=== PATIENT | male | born 1955 | race Caucasian/White ===

== ENCOUNTER 2017-03-18 14:10 | Emergency (ER) | payer OTHER ==
[~2017-03-18] VITALS: Ht 172.7 cm; Wt 72.6 kg
[~2017-03-18 14:10] MED LIST: ALBIPROI INH; ALBU8HFA2 INH; ALBU90OI6 INH; AZIT250 PO; CODGUAEL PO; DOXY100 PO; FLUSAL2505 IH; HYDACE5 PO; PRED10 PO; PRED20 PO; SULTRIDS PO; TIOT18 IH
[2017-03-18] MEDS ORDERED: HORIZANT300 MG PO (14:15)
[2017-03-18] MEDS ORDERED: FLUT1DIS5 INH (14:50)
[2017-03-18] MEDS ORDERED: CITA20 PO (14:50)
[2017-03-18] MEDS ORDERED: TRAZ100 PO (14:51)
[2017-03-18] MEDS ORDERED: MONT10T PO (14:51)
[2017-03-18] MEDS ORDERED: ALBU90OI INH (14:52)
[2018-01-12] MEDS ORDERED: DULERA 100 MCG/13 GM INH (09:42)
[2018-01-12] MEDS ORDERED: DULO30 PO (09:42)
[2018-01-12] MEDS ORDERED: ASPI325 PO (09:44)
[2018-01-12] MEDS ORDERED: IBUP400 PO (12:25)
== END 2017-03-18 15:10 | disposition home or self-care (01) ==
LOC: ER 14:10
DX: F10.129 Alcohol abuse with intoxication, unspecified (principal); F17.200 Nicotine dependence, unspecified, uncomplicated; J44.9 Chronic obstructive pulmonary disease, unspecified
CPT/HCPCS: 36415; 93005; 93010; 99283

== ENCOUNTER → 2017-09-23 | Outpatient (CLI) | payer OTHER ==
[~2017-09-23] MED LIST changes: +ALBU90OI INH; +CITA20 PO; +FLUT1DIS5 INH; +HORIZANT300 MG PO; +MONT10T PO; +TRAZ100 PO
== END ==
LOC: LAB SHORT 13:10 → LAB 13:10
DX: J44.1 Chronic obstructive pulmonary disease with (acute) exacerbation (principal)
CPT/HCPCS: 87070; 87205

== ENCOUNTER 2018-03-07 07:52 | Day surgery (SDC) | payer OTHER ==
[~2018-03-07] VITALS: Ht 170.2 cm; Wt 64.5 kg
[~2018-03-07 07:52] MED LIST changes: +ASPI325 PO; +DULERA 100 MCG/13 GM INH; +DULO30 PO; +IBUP400 PO
[2018-03-07 08:42] LABS: BASOPHILS ABSOLUTE AUTO 0.03 K/mm3 (0.00-0.23); BASOPHILS PERCENT AUTO 0 % (0-2); EOSINOPHILS PERCENT AUTO 3 % (0-6); Hemoglobin 16.5 g/dL (13.5-17.5); IMMATURE GRAN ABSOLUTE AUTO 0.02 K/mm3 (0.00-0.10); IMMATURE GRAN PERCENT AUTO 0 % (0-1); LYMPHOCYTES ABSOLUTE AUTO 1.15 K/mm3 (0.84-5.20); LYMPHOCYTES PERCENT AUTO 17 % (21-46); MONOCYTES ABSOLUTE AUTO 0.86 K/mm3 (0.16-1.47); MONOCYTES PERCENT AUTO 13 % (4-13); Mean Corpuscular HGB 27.7 pg (26.0-34.0); Mean Corpuscular Volume 84 fL (80-100); Mean Platelet Volume 9.2 fL (9.1-12.4); NEUTROPHILS ABSOLUTE AUTO 4.48 K/mm3 (1.96-9.15); NEUTROPHILS PERCENT AUTO 66 % (41-73); Platelet Count 290 K/mm3 (150-400); RDW Coefficient Variation 16.8 % (11.7-14.2); Red Blood Cell Count 5.96 M/mm3 (4.30-5.90); White Blood Cell Count 6.74 K/mm3 (4.00-11.30)
[2018-03-07 08:44] LABS: International Normalized Ratio 0.93; Prothrombin Time Results 9.9 Sec (9.7-11.5)
[2018-03-07 08:51] LABS: Anion Gap 6 mmol/L (6-16); Blood Urea Nitrogen 16 mg/dL (8-24); Bun/Creatinine Ratio 15.2 (12.0-20.0); CO2, Blood 31 mmol/L (21-32); Calcium, Blood 9.6 mg/dL (8.5-10.1); Chloride, Blood 95 mmol/L (98-108); Creatinine, Blood 1.05 mg/dL (0.60-1.20); Glomerular Filtration Rate >60 (60-); Glucose, Blood 88 mg/dL (70-99); Potassium, Blood 4.8 mmol/L (3.5-5.5); Sodium, Blood 132 mmol/L (136-145)
--- NOTE | 2018-03-07 11:50 | NUR ---
ANESTHESIOLOGIST AWAKENS PT WITH LIGHT PHYSICAL STIMULATION. PT REMAINS AWAKE. APPEARS ALERT WITH APPROPRIATE CONVERSATION AND QUESTIONS. IV DC'D WITH CANNULA TIP INTACT. FOLDED 2X2 GAUZE APPLIED WITH COBAN WRAP TO SITE. PT DRESSES SELF WITHOUT ASSISTANCE. AMBULATES TO THE BATHROOM WITHOUT BALANCE OR GAIT DEFECTS. DC'D TO WAITING FRIEND.
== END 2018-03-07 22:46 | disposition home or self-care (01) ==
LOC: MHTC 07:52
PROVIDERS: Internal Medicine Cardiovascular Disease
DX: I63.9 Cerebral infarction, unspecified (principal); R93.1 Abnormal findings on diagnostic imaging of heart and coronary circulation
CPT/HCPCS: 36415; 80048; 85025; 85610; 93312; 93325; J2250; J7040

== ENCOUNTER 2018-06-21 15:55 | Inpatient (IN) | payer OTHER ==
[~2018-06-21] VITALS: Ht 172.7 cm; Wt 67.0 kg
[2018-06-21 16:46] LABS: BASOPHILS ABSOLUTE AUTO 0.03 K/mm3 (0.00-0.23); BASOPHILS PERCENT AUTO 0 % (0-2); EOSINOPHILS ABSOLUTE AUTO 0.01 K/mm3 (0.00-0.68); EOSINOPHILS PERCENT AUTO 0 % (0-6); Hematocrit 42.4 % (37.0-53.0); IMMATURE GRAN ABSOLUTE AUTO 0.25 K/mm3 (0.00-0.10); IMMATURE GRAN PERCENT AUTO 2 % (0-1); LYMPHOCYTES ABSOLUTE AUTO 1.25 K/mm3 (0.84-5.20); LYMPHOCYTES PERCENT AUTO 8 % (21-46); MONOCYTES ABSOLUTE AUTO 1.62 K/mm3 (0.16-1.47); MONOCYTES PERCENT AUTO 10 % (4-13); Mean Corpuscular HGB 27.7 pg (26.0-34.0); Mean Corpuscular Volume 84 fL (80-100); NEUTROPHILS ABSOLUTE AUTO 12.78 K/mm3 (1.96-9.15); NEUTROPHILS PERCENT AUTO 80 % (41-73); Platelet Count 246 K/mm3 (150-400); RDW Coefficient Variation 14.8 % (11.7-14.2); RDW Standard Deviation 44.5 fL (35.1-46.3); Red Blood Cell Count 5.05 M/mm3 (4.30-5.90); White Blood Cell Count 15.94 K/mm3 (4.00-11.30)
[2018-06-21 16:57] LABS: Alanine Aminotransfer (ALT/SGP 90 U/L (12-78); Albumin/Globulin Ratio 0.5 (0.8-1.8); Alk Phos 117 U/L (50-136); Anion Gap 9 mmol/L (6-16); Aspartate Aminotrans (AST/SGOT 79 U/L (12-37); Bilirubin, Total 1.2 mg/dL (0.1-1.0); Blood Urea Nitrogen 21 mg/dL (8-24); Bun/Creatinine Ratio 19.6 (12.0-20.0); CO2, Blood 30 mmol/L (21-32); Calcium, Blood 9.4 mg/dL (8.5-10.1); Chloride, Blood 85 mmol/L (98-108); Creatinine, Blood 1.07 mg/dL (0.60-1.20); Globulin, Blood 5.6 g/dL (2.2-4.0); Glomerular Filtration Rate >60 (60-); Glucose, Blood 106 mg/dL (70-99); Potassium, Blood 5.5 mmol/L (3.5-5.5); Sodium, Blood 124 mmol/L (136-145); Total Protein, Blood 8.6 g/dL (6.4-8.2)
[2018-06-21] MEDS ORDERED: GABA300 PO (17:24)
[2018-06-21] MEDS ORDERED: PANT40 PO (17:25)
[2018-06-21] MEDS ORDERED: ATOR40TA PO (17:26)
[2018-06-21 18:30] LABS: Ethanol (Alcohol), Blood, Med <3 mg/dL; Magnesium, Blood 2.1 mg/dL (1.6-2.4)
--- NOTE | 2018-06-21 20:50 | NUR ---
2049 AMDIT: PT ARRIVES TO [facility] VIA GOURNEY FROM ER AND TRANSFERS SELF TO BED; APPEARS STEADY ON FEET AND SITS ON SIDE OF BED FOR ASSESMENT. IV ROCEPHIN INFUSING. PT ORIENTED TO ROOM, BED, FALL PRECAUTIONS AND CALL SYSTEM; VERBALIZES UNDERSTANDING. CALL LIGHT PLACED IN REACH.
[2018-06-21 22:22] LABS: Anion Gap 10 mmol/L (6-16); Blood Urea Nitrogen 17 mg/dL (8-24); Bun/Creatinine Ratio 18.7 (12.0-20.0); CO2, Blood 29 mmol/L (21-32); Calcium, Blood 8.9 mg/dL (8.5-10.1); Chloride, Blood 91 mmol/L (98-108); Creatinine, Blood 0.91 mg/dL (0.60-1.20); Glomerular Filtration Rate >60 (60-); Glucose, Blood 167 mg/dL (70-99); Potassium, Blood 4.1 mmol/L (3.5-5.5); Sodium, Blood 130 mmol/L (136-145)
[2018-06-22 00:54] LABS: U Amphetamine Screen Not Detected; U Barbituate Screen Not Detected; U Benzodiazapine Screen Not Detected; U Buprenorphine Screen Not Detected; U Cannabinoids Screen Not Detected; U Cocaine Screen Not Detected; U Methadone Screen Not Detected; U Methamphetamine Screen Not Detected; U Opiates Screen Not Detected; U Oxycodone Screen Not Detected; U Phencyclidine Screen Not Detected; U Propoxyphene Screen Not Detected
[2018-06-22 04:32] LABS: BASOPHILS ABSOLUTE AUTO 0.01 K/mm3 (0.00-0.23); BASOPHILS PERCENT AUTO 0 % (0-2); EOSINOPHILS PERCENT AUTO 0 % (0-6); Hematocrit 37.6 % (37.0-53.0); Hemoglobin 12.4 g/dL (13.5-17.5); IMMATURE GRAN ABSOLUTE AUTO 0.12 K/mm3 (0.00-0.10); IMMATURE GRAN PERCENT AUTO 1 % (0-1); LYMPHOCYTES ABSOLUTE AUTO 0.77 K/mm3 (0.84-5.20); LYMPHOCYTES PERCENT AUTO 6 % (21-46); MONOCYTES ABSOLUTE AUTO 0.57 K/mm3 (0.16-1.47); MONOCYTES PERCENT AUTO 4 % (4-13); Mean Corpuscular HGB 27.7 pg (26.0-34.0); Mean Corpuscular Volume 84 fL (80-100); Mean Platelet Volume 9.9 fL (9.1-12.4); NEUTROPHILS ABSOLUTE AUTO 11.76 K/mm3 (1.96-9.15); NEUTROPHILS PERCENT AUTO 89 % (41-73); Platelet Count 207 K/mm3 (150-400); RDW Coefficient Variation 14.6 % (11.7-14.2); RDW Standard Deviation 43.9 fL (35.1-46.3); Red Blood Cell Count 4.48 M/mm3 (4.30-5.90); White Blood Cell Count 13.23 K/mm3 (4.00-11.30)
[2018-06-22 04:46] LABS: International Normalized Ratio 1.03; Prothrombin Time Results 10.9 Sec (9.7-11.5)
--- NOTE | 2018-06-22 11:54 | NUR ---
REPORT TO MARIYA ARMAS ON MEDICAL FLOOR.
--- NOTE | 2018-06-22 15:41 | NUR ---
ARRIVED TO RM 303 FROM PCU AFTER LUNCH. ORIENTED TO THE ROOM. I&O DISCUSSED. HE IS A&O. HE IS QUIET. SKIN IS A DEEP SUN BROWN. IVF'S INFUSING. NO COMPLAINTS. NO SIGNS OF WITHDRAWAL.O2 ON 2L. SAT 93%.
--- NOTE | 2018-06-22 18:24 | NUR ---
VSS. CIWA SCORE 6. HAS ORDERED CIWA MEDS IF THEY BECOME NECESSARY LATER. HE IS FINISHING A CAN OF BEER HE RECEIVED ON HIS DINNER TRAY. IT IS THE ONLY CAN HE HAS RECEIVED TODAY. NO FEVER. H/A IS GONE AT THIS TIME.O2 DOWN TO 1L/MIN. CONTINUOUS BIOX IS ON. HE IS 90%. HIS SPUTUM THIS AFTERNOON WAS GREEN. HE EXPECTORATES A MODERATE AMT. IV ANTIBIOTICS GIVEN. NO COMPLAINTS.
--- NOTE | 2018-06-23 04:49 | NUR ---
Shift summary: Pt slept well most of shift. Only evidence of ETOH detoxing was some tremors in his hands. pt alert, oriented and appropriate. pt recieved a banana bag of iv fluids last pm. NO c/o discomfort. VSS.
--- NOTE | 2018-06-23 10:41 | NUR ---
CIWA NEGATIVE. HE IS PLEASANT AND COOPERATIVE. HE SAYS HE DOESN'T FEEL VERY GOOD THOUGH TODAY AND HOPES HE DOES NOT GET DISCHARGED. IVF'S CONTINUE. TELE NSR. HE HAS SHOWERED AND EATS WELL. HE DRANK HIS CAN OF BEER ON HIS BREAKFAST TRAY. LOTS OF SPUTUM PRODUCTION, SOMETIMES GREEN, SOMETIMES BROWN OR YELLOW. O2 1L. SATS 90-91%. ROUNDED. NO ORDERS YET.
--- NOTE | 2018-06-23 10:51 | NUR ---
NORMAS PUT ON BOTH LEGS AFTER SHOWER EARLIER THIS AM.
[2018-06-23] MEDS ORDERED: TRAZ50 PO (12:38)
[2018-06-23] MEDS ORDERED: ACET325 PO (12:40)
[2018-06-23] MEDS ORDERED: BENZ100A PO (12:44)
[2018-06-23] MEDS ORDERED: GUAIFENESIN1200 MG PO (12:45)
[2018-06-23] MEDS ORDERED: ALBU3IS INH (12:47)
[2018-06-23] MEDS ORDERED: NICO21TP TOP (12:48)
[2018-06-23] MEDS ORDERED: PRED10 PO (12:50)
[2018-06-23] MEDS ORDERED: Florastor250 MG PO (12:50)
[2018-06-23] MEDS ORDERED: ASPI81CH PO (12:51)
[2018-06-23] MEDS ORDERED: LEVO750 PO (12:52)
[2018-06-23] MEDS ORDERED: DULERA 200 MCG/13 GM INH (12:53)
--- NOTE | 2018-06-23 14:30 | NUR ---
DISCHARGED TO HOME AT 1425 WITH HIS BELONGINGS AND AN RX FOR A NEB MACHINE. F/U APPT. WAS SET UP BY THE [facility] FOR THE . [facility] WILL DELIVER HIS MEDS TO HIM AT THE [facility]. HE WILL GET THE RX FILLED AT [facility]. HE HAD SOME SWEATS AND TREMORS. LIBRIUM GIVEN X1. RA SATS 91 AND 92% BEFORE HE LEFT.
== END 2018-06-23 14:34 | disposition home or self-care (01) | DRG 871 ==
LOC: ER 15:55 → ERHOLD 18:13 → PCU 20:37 → MEDS 20:43 → ENPENDDIS 06-23 11:55 → MEDS 06-23 14:34
PROVIDERS: Emergency Medicine; Nurse Practitioner Acute Care; ADMIT Internal Medicine
DX: A41.9 Sepsis, unspecified organism (principal); J96.01 Acute respiratory failure with hypoxia; J18.9 Pneumonia, unspecified organism; J44.1 Chronic obstructive pulmonary disease with (acute) exacerbation; J44.0 Chronic obstructive pulmonary disease with (acute) lower respiratory infection; E87.1 Hypo-osmolality and hyponatremia; F32.9 Major depressive disorder, single episode, unspecified; F17.210 Nicotine dependence, cigarettes, uncomplicated; F10.20 Alcohol dependence, uncomplicated; K21.9 Gastro-esophageal reflux disease without esophagitis; F41.9 Anxiety disorder, unspecified; Z59.0 Homelessness
CPT/HCPCS: 36415; 71046; 80048; 80053; 83605; 83735; 84145; 85025; 85610; 87070; 87077; 87185; 87205; 93005; 93010; 94640; 94760; 94762; 96365; 96367; 96375; 99285-25; G0480; J0456; J0696; J1650; J2060; J2930; J3411; J3475; J7030; J7042; J7050; J7512

== ENCOUNTER 2018-08-19 21:25 | Emergency (ER) | payer OTHER ==
[~2018-08-19] VITALS: Ht 170.2 cm; Wt 68.0 kg
[~2018-08-19 21:25] MED LIST changes: +ACET325 PO; +ALBU3IS INH; +ASPI81CH PO; +ATOR40TA PO; +BENZ100A PO; +DULERA 200 MCG/13 GM INH; +Florastor250 MG PO; +GABA300 PO; +GUAIFENESIN1200 MG PO; +LEVO750 PO; +NICO21TP TOP; +PANT40 PO; +TRAZ50 PO
[2018-08-19 21:56] LABS: BASOPHILS ABSOLUTE AUTO 0.02 K/mm3 (0.00-0.23); BASOPHILS PERCENT AUTO 0 % (0-2); EOSINOPHILS PERCENT AUTO 3 % (0-6); Hematocrit 41.4 % (37.0-53.0); Hemoglobin 13.4 g/dL (13.5-17.5); IMMATURE GRAN ABSOLUTE AUTO 0.05 K/mm3 (0.00-0.10); IMMATURE GRAN PERCENT AUTO 0 % (0-1); LYMPHOCYTES PERCENT AUTO 25 % (21-46); MONOCYTES ABSOLUTE AUTO 0.92 K/mm3 (0.16-1.47); MONOCYTES PERCENT AUTO 8 % (4-13); Mean Corpuscular HGB Conc 32.4 g/dL (31.5-36.5); Mean Corpuscular Volume 87 fL (80-100); Mean Platelet Volume 9.3 fL (9.1-12.4); NEUTROPHILS ABSOLUTE AUTO 7.09 K/mm3 (1.96-9.15); NEUTROPHILS PERCENT AUTO 64 % (41-73); Platelet Count 160 K/mm3 (150-400); RDW Coefficient Variation 15.6 % (11.7-14.2); RDW Standard Deviation 47.7 fL (35.1-46.3); Red Blood Cell Count 4.78 M/mm3 (4.30-5.90); White Blood Cell Count 11.18 K/mm3 (4.00-11.30)
[2018-08-19 22:14] LABS: Alanine Aminotransfer (ALT/SGP 57 U/L (12-78); Albumin, Blood 3.5 g/dL (3.4-5.0); Albumin/Globulin Ratio 0.9 (0.8-1.8); Alk Phos 114 U/L (50-136); Anion Gap 8 mmol/L (6-16); Aspartate Aminotrans (AST/SGOT 39 U/L (12-37); Bilirubin, Total 0.5 mg/dL (0.1-1.0); Blood Urea Nitrogen 12 mg/dL (8-24); Bun/Creatinine Ratio 13.8 (12.0-20.0); CO2, Blood 31 mmol/L (21-32); Calcium, Blood 9.3 mg/dL (8.5-10.1); Chloride, Blood 97 mmol/L (98-108); Creatinine, Blood 0.87 mg/dL (0.60-1.20); Globulin, Blood 4.1 g/dL (2.2-4.0); Glomerular Filtration Rate >60 (60-); Glucose, Blood 96 mg/dL (70-99); Potassium, Blood 4.1 mmol/L (3.5-5.5); Sodium, Blood 136 mmol/L (136-145); Total Protein, Blood 7.6 g/dL (6.4-8.2)
[2018-08-20] MEDS ORDERED: Zithromax250 MG PO (00:22)
[2018-08-20] MEDS ORDERED: Ventolin/Prove6.7 GM INH (00:22)
[2018-08-20] MEDS ORDERED: Prednisone20 MG PO (00:22)
== END 2018-08-20 02:20 | disposition home or self-care (01) ==
LOC: ER 21:25
PROVIDERS: Physician Assistant
DX: J44.1 Chronic obstructive pulmonary disease with (acute) exacerbation (principal); F17.210 Nicotine dependence, cigarettes, uncomplicated; Z79.82 Long term (current) use of aspirin; Z79.899 Other long term (current) drug therapy; Z87.01 Personal history of pneumonia (recurrent)
CPT/HCPCS: 71046; 80053; 85025; 93005; 93010; 94644; 99285-25; J7512

== ENCOUNTER 2019-02-04 22:53 | Inpatient (IN) | payer OTHER ==
[~2019-02-04] VITALS: Ht 170.2 cm; Wt 67.5 kg
[~2019-02-04 22:53] MED LIST changes: +Prednisone20 MG PO; +Ventolin/Prove6.7 GM INH; +Zithromax250 MG PO
[2019-02-04 23:37] LABS: BASOPHILS ABSOLUTE AUTO 0.02 K/mm3 (0.00-0.23); BASOPHILS PERCENT AUTO 0 % (0-2); EOSINOPHILS ABSOLUTE AUTO 0.28 K/mm3 (0.00-0.68); EOSINOPHILS PERCENT AUTO 2 % (0-6); Hemoglobin 9.3 g/dL (13.5-17.5); IMMATURE GRAN PERCENT AUTO 2 % (0-1); LYMPHOCYTES ABSOLUTE AUTO 1.98 K/mm3 (0.84-5.20); LYMPHOCYTES PERCENT AUTO 16 % (21-46); MONOCYTES ABSOLUTE AUTO 1.17 K/mm3 (0.16-1.47); MONOCYTES PERCENT AUTO 9 % (4-13); Mean Corpuscular HGB 26.9 pg (26.0-34.0); Mean Corpuscular HGB Conc 32.1 g/dL (31.5-36.5); Mean Corpuscular Volume 84 fL (80-100); NEUTROPHILS ABSOLUTE AUTO 8.72 K/mm3 (1.96-9.15); NEUTROPHILS PERCENT AUTO 70 % (41-73); Platelet Count 252 K/mm3 (150-400); RDW Coefficient Variation 15.9 % (11.7-14.2); Red Blood Cell Count 3.46 M/mm3 (4.30-5.90); White Blood Cell Count 12.47 K/mm3 (4.00-11.30)
[2019-02-04 23:50] LABS: Alanine Aminotransfer (ALT/SGP 59 U/L (12-78); Albumin, Blood 2.5 g/dL (3.4-5.0); Albumin/Globulin Ratio 0.6 (0.8-1.8); Alk Phos 99 U/L (50-136); Anion Gap 5 mmol/L (6-16); Aspartate Aminotrans (AST/SGOT 35 U/L (12-37); Bilirubin, Total 0.4 mg/dL (0.1-1.0); Blood Urea Nitrogen 32 mg/dL (8-24); Bun/Creatinine Ratio 31.7 (12.0-20.0); CO2, Blood 31 mmol/L (21-32); Calcium, Blood 8.7 mg/dL (8.5-10.1); Chloride, Blood 98 mmol/L (98-108); Creatinine, Blood 1.01 mg/dL (0.60-1.20); Globulin, Blood 4.2 g/dL (2.2-4.0); Glomerular Filtration Rate >60 (60-); Glucose, Blood 101 mg/dL (70-99); Potassium, Blood 4.2 mmol/L (3.5-5.5); Sodium, Blood 134 mmol/L (136-145); Total Protein, Blood 6.7 g/dL (6.4-8.2); Troponin I 0.021 ng/mL (0.000-0.040)
[2019-02-05 04:08] LABS: BASOPHILS ABSOLUTE AUTO 0.02 K/mm3 (0.00-0.23); BASOPHILS PERCENT AUTO 0 % (0-2); EOSINOPHILS ABSOLUTE AUTO 0.08 K/mm3 (0.00-0.68); EOSINOPHILS PERCENT AUTO 1 % (0-6); Hematocrit 26.1 % (37.0-53.0); Hemoglobin 8.3 g/dL (13.5-17.5); IMMATURE GRAN ABSOLUTE AUTO 0.32 K/mm3 (0.00-0.10); IMMATURE GRAN PERCENT AUTO 3 % (0-1); LYMPHOCYTES ABSOLUTE AUTO 0.86 K/mm3 (0.84-5.20); LYMPHOCYTES PERCENT AUTO 8 % (21-46); MONOCYTES ABSOLUTE AUTO 0.58 K/mm3 (0.16-1.47); MONOCYTES PERCENT AUTO 6 % (4-13); Mean Corpuscular HGB 26.5 pg (26.0-34.0); Mean Corpuscular HGB Conc 31.8 g/dL (31.5-36.5); Mean Corpuscular Volume 83 fL (80-100); Mean Platelet Volume 10.1 fL (9.1-12.4); NEUTROPHILS ABSOLUTE AUTO 8.72 K/mm3 (1.96-9.15); NEUTROPHILS PERCENT AUTO 82 % (41-73); Platelet Count 234 K/mm3 (150-400); RDW Coefficient Variation 15.7 % (11.7-14.2); RDW Standard Deviation 46.5 fL (35.1-46.3); Red Blood Cell Count 3.13 M/mm3 (4.30-5.90); White Blood Cell Count 10.58 K/mm3 (4.00-11.30)
[2019-02-05 04:26] LABS: Albumin, Blood 2.1 g/dL (3.4-5.0); Anion Gap 7 mmol/L (6-16); Blood Urea Nitrogen 25 mg/dL (8-24); Bun/Creatinine Ratio 27.1 (12.0-20.0); CO2, Blood 26 mmol/L (21-32); Calcium, Blood 7.8 mg/dL (8.5-10.1); Chloride, Blood 104 mmol/L (98-108); Creatinine, Blood 0.92 mg/dL (0.60-1.20); Glomerular Filtration Rate >60 (60-); Glucose, Blood 122 mg/dL (70-99); Potassium, Blood 3.7 mmol/L (3.5-5.5); Sodium, Blood 137 mmol/L (136-145)
--- NOTE | 2019-02-05 05:41 | NUR ---
SHIFT SUMMARY PT SLEEPING IN ROOM COMFORTABLY AT THIS TIME. NO ACUTE CHANGES IN STATUS SINCE ARRIVAL TO UNIT FROM ED. PT REPROTS SOME DYSPNEA W/ EXERTION, REPORTS NO SOB AT REST, UNTIL COUGHING EPISDOE OCCURS. RESP EVEN UNLABORED AT REST ON 2L NC W/ SATS >92%. PT DENIES ANY CP. REPORTS SOME MILD ABD CRAMPING AND BLACK FORMED STOOL X3 DAYS AGO, AND ANOTHER BLACK STOOL IN ED BEFORE ARRIVAL. GI CONSULT IS CALLED IN FOR AM. PT CURRENTLY INFUSING PROTONIX IN PIV, AND LR AT 100ML/HR. PT IS HYPOTENSIVE WITH FLUIDS INFUSING. DENIES OTHER NEEDS. CALL LIGHT IN REACH.
[2019-02-05 09:52] LABS: Adenovirus Not Detected (NOT DETECT); Bordetella pertussis Not Detected (NOT DETECT); Chlamydophila pneumoniae Not Detected (NOT DETECT); Coronavirus 229E Not Detected (NOT DETECT); Coronavirus HKU1 Not Detected (NOT DETECT); Coronavirus NL63 Not Detected (NOT DETECT); Coronavirus OC43 Not Detected (NOT DETECT); Human Metapneumovirus Not Detected (NOT DETECT); Human Rhinovirus/Enterovirus Not Detected (NOT DETECT); Influenza A Not Detected (NOT DETECT); Influenza A/2009-H1 Not Detected (NOT DETECT); Influenza A/H1 Not Detected (NOT DETECT); Influenza A/H3 Not Detected (NOT DETECT); Influenza B Not Detected (NOT DETECT); Mycoplasma pneumoniae Not Detected (NOT DETECT); Parainfluenza Virus 1 Not Detected (NOT DETECT); Parainfluenza Virus 2 Not Detected (NOT DETECT); Parainfluenza Virus 3 Not Detected (NOT DETECT); Parainfluenza Virus 4 Not Detected (NOT DETECT); Respiratory Syncytial Virus Not Detected (NOT DETECT)
[2019-02-05 10:27] LABS: Hematocrit 26.2 % (37.0-53.0); Hemoglobin 8.3 g/dL (13.5-17.5); Mean Corpuscular HGB 26.4 pg (26.0-34.0); Mean Corpuscular HGB Conc 31.7 g/dL (31.5-36.5); Mean Corpuscular Volume 83 fL (80-100); Platelet Count 240 K/mm3 (150-400); RDW Coefficient Variation 15.6 % (11.7-14.2); RDW Standard Deviation 46.5 fL (35.1-46.3); Red Blood Cell Count 3.14 M/mm3 (4.30-5.90); White Blood Cell Count 10.78 K/mm3 (4.00-11.30)
[2019-02-05 10:51] LABS: BAND PERCENT MAN 10 % (0-8); BASOPHILS PERCENT MAN 0 % (0-2); EOSINOPHILS PERCENT MAN 0 % (0-6); LYMPHOCYTES ABSOLUTE MAN 0.86 K/mm3 (0.84-5.20); LYMPHOCYTES PERCENT MAN 8 % (21-46); MONOCYTES ABSOLUTE MAN 0.43 K/mm3 (0.16-1.47); MONOCYTES PERCENT MAN 4 % (4-13); NEUTROPHILS ABSOLUTE MAN 9.48 K/mm3 (1.96-9.15); SEG NEUTROPHILS PERCENT MAN 78 % (41-73); TOTAL CELLS COUNTED 100
[2019-02-05 18:25] LABS: Hematocrit 26.4 % (37.0-53.0); Hemoglobin 8.4 g/dL (13.5-17.5)
--- NOTE | 2019-02-05 18:47 | NUR ---
SHIFT SUMMARY PT HAS SHOWN IMPROVEMENT THROUGH OUT THE DAY. BEGAN SHIFT WITH PT ON 2L NC AND WAS ABLE TO WEAN PT TO ROOM AIR. PT HAS STATED MULTIPLE TIMES THAT HE FEELS HIS BREATHING HAS IMPROVED. BP'S HAVE BEEN SOFT IN THE HIGH 90'S. DR MURO AWARE AND WANTS TO CONTINUE TO MONITOR. DR MORATAYA ROUNDED ON PT THIS MORNING AND PLANS ON NO ENDOSCOPY'S WHILE INPATIENT. TELEMETRY HAS SHOWN PT IN A NSR RATES 70-80'S.
[2019-02-06 04:09] LABS: BASOPHILS ABSOLUTE AUTO 0.01 K/mm3 (0.00-0.23); BASOPHILS PERCENT AUTO 0 % (0-2); EOSINOPHILS ABSOLUTE AUTO 0.02 K/mm3 (0.00-0.68); EOSINOPHILS PERCENT AUTO 0 % (0-6); Hematocrit 24.7 % (37.0-53.0); Hemoglobin 7.8 g/dL (13.5-17.5); Mean Corpuscular HGB 26.5 pg (26.0-34.0); Mean Corpuscular HGB Conc 31.6 g/dL (31.5-36.5); Mean Corpuscular Volume 84 fL (80-100); Mean Platelet Volume 10.2 fL (9.1-12.4); Platelet Count 257 K/mm3 (150-400); RDW Coefficient Variation 15.9 % (11.7-14.2); RDW Standard Deviation 47.6 fL (35.1-46.3); Red Blood Cell Count 2.94 M/mm3 (4.30-5.90)
[2019-02-06 04:11] LABS: IMMATURE GRAN ABSOLUTE AUTO 0.25 K/mm3 (0.00-0.10); IMMATURE GRAN PERCENT AUTO 2 % (0-1); LYMPHOCYTES ABSOLUTE AUTO 2.17 K/mm3 (0.84-5.20); LYMPHOCYTES PERCENT AUTO 19 % (21-46); MONOCYTES ABSOLUTE AUTO 1.24 K/mm3 (0.16-1.47); MONOCYTES PERCENT AUTO 11 % (4-13); NEUTROPHILS ABSOLUTE AUTO 7.81 K/mm3 (1.96-9.15); NEUTROPHILS PERCENT AUTO 68 % (41-73)
--- NOTE | 2019-02-06 05:49 | NUR ---
SHIFT SUMMARY PT SITTING UP WATCHING TV IN ROOM. PT SLEPT WELL T/O NIGHT, AND DENIED NEEDS. RESP EVEN UNLABORED ON RA W/ SATS >92%. DENIED CP OR SOB T/O NIGHT. PT CONTINUED TO HAVE HARSH NONPRODUCTIVE COUGH. UNABLE TO OBTAIN SPUTUM SAMPLE. PT USED URINAL AT BEDSIDE T.O NIGHT. IVF INFUSING IN PIV. HGB NOTED THIS AM TO BE 7.9, HOSPITALIST NOTIFED, NO SIGNS OF ACTIVE BLEEDING. GI CONTULS SAW AND SIGHEND OFF ON PT YESTERDAY. ORDERS TO CONTINUE TO MONIOTR PT. DENIED OTHER NEEDS. CALL LIGHT IN REACH.
[2019-02-07 04:11] LABS: BASOPHILS ABSOLUTE AUTO 0.01 K/mm3 (0.00-0.23); BASOPHILS PERCENT AUTO 0 % (0-2); EOSINOPHILS ABSOLUTE AUTO 0.01 K/mm3 (0.00-0.68); EOSINOPHILS PERCENT AUTO 0 % (0-6); Hematocrit 27.7 % (37.0-53.0); Hemoglobin 8.8 g/dL (13.5-17.5); Mean Corpuscular HGB 26.6 pg (26.0-34.0); Mean Corpuscular HGB Conc 31.8 g/dL (31.5-36.5); Mean Corpuscular Volume 84 fL (80-100); Platelet Count 360 K/mm3 (150-400); RDW Coefficient Variation 15.9 % (11.7-14.2); RDW Standard Deviation 47.4 fL (35.1-46.3); Red Blood Cell Count 3.31 M/mm3 (4.30-5.90); White Blood Cell Count 10.39 K/mm3 (4.00-11.30)
[2019-02-07 04:13] LABS: IMMATURE GRAN ABSOLUTE AUTO 0.39 K/mm3 (0.00-0.10); IMMATURE GRAN PERCENT AUTO 4 % (0-1); LYMPHOCYTES ABSOLUTE AUTO 1.78 K/mm3 (0.84-5.20); LYMPHOCYTES PERCENT AUTO 17 % (21-46); MONOCYTES ABSOLUTE AUTO 0.77 K/mm3 (0.16-1.47); MONOCYTES PERCENT AUTO 7 % (4-13); NEUTROPHILS ABSOLUTE AUTO 7.43 K/mm3 (1.96-9.15); NEUTROPHILS PERCENT AUTO 72 % (41-73)
--- NOTE | 2019-02-07 04:29 | NUR ---
SHIFT SUMMARY: 63 Y/O MALE RESTED COMFORTABLY ALL SHIFT, PT HAS OCCASIONAL PRODUCTIVE COUGH BROWN/WHITE SPUTUM (SAMPLE TO LAB); DENIES DYSPNEA, CHEST OR NAUSEA; HAPPY AND COOPERATIVE; VITAL SIGNS STABLE; TELEMETRY REFLECTS SINUS TACHYCARDIA; HG 8.8 THIS AM (02/06 WAS 7.8); VOIDING QS; BED LOW POSITION WITH CALL LIGHT AT SIDE.
[2019-02-07 05:31] LABS: BAND PERCENT MAN 4 % (0-8); BASOPHILS PERCENT MAN 0 % (0-2); EOSINOPHILS PERCENT MAN 1 % (0-6); LYMPHOCYTES ABSOLUTE MAN 1.14 K/mm3 (0.84-5.20); LYMPHOCYTES PERCENT MAN 11 % (21-46); METAMYELOCYTE PERCENT MAN 1 % (0-0); MONOCYTES ABSOLUTE MAN 0.83 K/mm3 (0.16-1.47); MONOCYTES PERCENT MAN 8 % (4-13); MYELOCYTE PERCENT MAN 1 % (0-0); NEUTROPHILS ABSOLUTE MAN 7.79 K/mm3 (1.96-9.15); OTHER CELL PERCENT MAN 3 % (0-0); SEG NEUTROPHILS PERCENT MAN 71 % (41-73); TOTAL CELLS COUNTED 100
[2019-02-07 07:07] LABS: HBSAG SCREEN Negative (Negative); HEP B CORE AB, TOT Negative (Negative); HEP C VIRUS AB <0.1 (0.0-0.9)
[2019-02-07] MEDS ORDERED: AZIT250 PO (09:44)
[2019-02-07] MEDS ORDERED: CEFU500T30 PO (09:46)
[2019-02-07] MEDS ORDERED: PRED20 PO (09:47)
[2019-02-07] MEDS ORDERED: CODEINE-GUAIFE120 ML PO (09:52)
--- NOTE | 2019-02-07 11:36 | NUR ---
DISCHARGE SUMMARY PT A&Ox4. CALM AND COOPERATIVE WITH CARE. PT RESTING IN BED DURING SHIFT. UP ON SIDE OF BED FOR BREAKFAST. PT REPORTS VELA, MEDICATED x1 WITH TYLENOL. PT DENIES SOB, SPO2 >90% ON RA. BREATHING EVEN, UNLABORED. LS DIM T/O. PT DENIES NASUEA. PT RECEIVING IV ANTIBIOTICS, TRANSITIONED TO PO ANTIBIOTICS AT HOME. PT RECEIVING PO STEROIDS. VSS. NO OTHER ACUTE CHANGES NOTED. PT EDUCATED ON DISCHRAGE INSRUCTIONS, FOLLOW UP APPOINTMENTS AND MEDICATIONS. PRESCRIPTIONS FAXED TO [facility] PER PT REQUEST, PHYSICAL PRESCRIPTION GIVEN TO PATIENT. PT LEFT ROOM VIA WHEELCHAIR, TAXI PROVIDED FOR RIDE HOME. PT LEFT ROOM AT 1125. PT STABLE UPON DISCHARGE.
== END 2019-02-07 11:38 | disposition home or self-care (01) | DRG 871 ==
LOC: ER 22:53 → PCU 02-05 03:40
PROVIDERS: Emergency Medicine; Hospitalist; Internal Medicine Gastroenterology; ADMIT Family Medicine
DX: A41.9 Sepsis, unspecified organism (principal); J96.01 Acute respiratory failure with hypoxia; J18.9 Pneumonia, unspecified organism; E87.1 Hypo-osmolality and hyponatremia; J44.0 Chronic obstructive pulmonary disease with (acute) lower respiratory infection; K92.1 Melena; R65.20 Severe sepsis without septic shock; D64.9 Anemia, unspecified; F17.210 Nicotine dependence, cigarettes, uncomplicated; Z59.0 Homelessness; T39.015A Adverse effect of aspirin, initial encounter
CPT/HCPCS: 0099U; 36415; 71046; 80053; 80069; 83605; 83880; 84484; 85014; 85018; 85025; 86317; 86704; 86708; 86803; 87040; 87070; 87205; 87340; 93005; 93010; 94640; 94760; 96361; 96365; 96375; 99285-25; A9270; C9113; J0456; J0696; J2930; J7030; J7050; J7120; J7512

== ENCOUNTER 2019-02-14 16:07 | Observation (INO) | payer OTHER ==
[~2019-02-14] VITALS: Ht 172.7 cm; Wt 67.2 kg
[~2019-02-14 16:07] MED LIST changes: +CEFU500T30 PO; +CODEINE-GUAIFE120 ML PO
[2019-02-14 16:41] LABS: BASOPHILS ABSOLUTE AUTO 0.02 K/mm3 (0.00-0.23); BASOPHILS PERCENT AUTO 0 % (0-2); EOSINOPHILS ABSOLUTE AUTO 0.06 K/mm3 (0.00-0.68); EOSINOPHILS PERCENT AUTO 1 % (0-6); Hematocrit 31.9 % (37.0-53.0); Hemoglobin 9.9 g/dL (13.5-17.5); IMMATURE GRAN ABSOLUTE AUTO 0.06 K/mm3 (0.00-0.10); IMMATURE GRAN PERCENT AUTO 1 % (0-1); LYMPHOCYTES ABSOLUTE AUTO 0.43 K/mm3 (0.84-5.20); LYMPHOCYTES PERCENT AUTO 3 % (21-46); MONOCYTES ABSOLUTE AUTO 0.36 K/mm3 (0.16-1.47); MONOCYTES PERCENT AUTO 3 % (4-13); Mean Corpuscular HGB 25.8 pg (26.0-34.0); Mean Corpuscular Volume 83 fL (80-100); Mean Platelet Volume 8.6 fL (9.1-12.4); NEUTROPHILS ABSOLUTE AUTO 12.13 K/mm3 (1.96-9.15); NEUTROPHILS PERCENT AUTO 93 % (41-73); Platelet Count 667 K/mm3 (150-400); RDW Coefficient Variation 16.2 % (11.7-14.2); RDW Standard Deviation 48.1 fL (35.1-46.3); Red Blood Cell Count 3.83 M/mm3 (4.30-5.90); White Blood Cell Count 13.06 K/mm3 (4.00-11.30)
[2019-02-14 17:07] LABS: Alanine Aminotransfer (ALT/SGP 21 U/L (12-78); Albumin, Blood 2.8 g/dL (3.4-5.0); Albumin/Globulin Ratio 0.8 (0.8-1.8); Alk Phos 66 U/L (50-136); Anion Gap 7 mmol/L (6-16); Aspartate Aminotrans (AST/SGOT 12 U/L (12-37); Bilirubin, Total 0.5 mg/dL (0.1-1.0); Blood Urea Nitrogen 30 mg/dL (8-24); Bun/Creatinine Ratio 32.2 (12.0-20.0); CO2, Blood 28 mmol/L (21-32); Calcium, Blood 8.3 mg/dL (8.5-10.1); Chloride, Blood 99 mmol/L (98-108); Creatinine, Blood 0.93 mg/dL (0.60-1.20); Globulin, Blood 3.6 g/dL (2.2-4.0); Glomerular Filtration Rate >60 (60-); Glucose, Blood 93 mg/dL (70-99); Sodium, Blood 134 mmol/L (136-145); Total Protein, Blood 6.4 g/dL (6.4-8.2)
[2019-02-14 17:17] LABS: BASOPHILS ABSOLUTE MAN 13.06 K/mm3 (0.00-0.23); BASOPHILS PERCENT MAN 100 % (0-2); EOSINOPHILS PERCENT MAN 0 % (0-6); MONOCYTES PERCENT MAN 0 % (4-13); TOTAL CELLS COUNTED 1
[2019-02-14 19:01] LABS: Appearance, Urine Clear (Clear); Bilirubin, Urine Neg (Neg); Blood, Urine Neg (Neg); Color, Urine Yellow (P-Yellow); Glucose Qualitative, Urine Neg (Neg); Ketones, Urine Neg (Neg); Leukocyte Esterase, Urine Neg (Neg); Nitrite, Urine Neg (Neg); Protein, Urine Neg (Neg); Specific Gravity, Urine 1.015 (1.003-1.022); Urobilinogen, Urine NORM (Normal)
[2019-02-14] MEDS ORDERED: ATOR40TA PO (21:19)
[2019-02-14] MEDS ORDERED: TRAZ100 PO (21:19)
[2019-02-14] MEDS ORDERED: NEURONTIN300 MG PO (21:20)
[2019-02-14] MEDS ORDERED: COMBIVENT RESPIM4 GM INH (21:21)
[2019-02-14] MEDS ORDERED: BUDE6HFA INH (21:21)
[2019-02-14] MEDS ORDERED: MONT10T PO (21:21)
[2019-02-14] MEDS ORDERED: ALBU2.5V5 INH (21:22)
[2019-02-14 23:09] LABS: Influenza A Negative (NEGATIVE); Influenza B Negative (NEGATIVE)
--- NOTE | 2019-02-15 02:36 | NUR ---
PT ARRIVED FROM ER APPROXIMATELY 2200; PT A&O; TRANSFER SELF TO BED; O2 SATS >93 ON RA; LUNG SOUNDS CLEAR; HACKING NON-PRODUCTIVE COUGH NOTED; PT DENIES CHEST PAIN; REQUESTS FOOD; SANDWICH, PUDDING AND YOGURT PROVIDED; PT STATES NEW TENDERNESS/PAIN IN R FOOT; CALL LIGHT IN REACH; BED IN LOWEST POSITION APPROXIMATELY 0130 PROVIDER NOTIFIED OF TEMP OF 100.1 AND BP; NEW ORDER TYLENOL FOR FEVER GIVEN
[2019-02-15 03:48] LABS: BASOPHILS ABSOLUTE AUTO 0.02 K/mm3 (0.00-0.23); BASOPHILS PERCENT AUTO 0 % (0-2); EOSINOPHILS ABSOLUTE AUTO 0.04 K/mm3 (0.00-0.68); EOSINOPHILS PERCENT AUTO 1 % (0-6); Hematocrit 28.6 % (37.0-53.0); Hemoglobin 9.1 g/dL (13.5-17.5); IMMATURE GRAN ABSOLUTE AUTO 0.04 K/mm3 (0.00-0.10); IMMATURE GRAN PERCENT AUTO 1 % (0-1); LYMPHOCYTES ABSOLUTE AUTO 0.95 K/mm3 (0.84-5.20); LYMPHOCYTES PERCENT AUTO 12 % (21-46); MONOCYTES ABSOLUTE AUTO 0.36 K/mm3 (0.16-1.47); MONOCYTES PERCENT AUTO 4 % (4-13); Mean Corpuscular HGB 26.2 pg (26.0-34.0); Mean Corpuscular HGB Conc 31.8 g/dL (31.5-36.5); Mean Corpuscular Volume 82 fL (80-100); Mean Platelet Volume 8.7 fL (9.1-12.4); NEUTROPHILS PERCENT AUTO 83 % (41-73); Platelet Count 537 K/mm3 (150-400); RDW Coefficient Variation 16.1 % (11.7-14.2); RDW Standard Deviation 47.6 fL (35.1-46.3); Red Blood Cell Count 3.47 M/mm3 (4.30-5.90); White Blood Cell Count 8.11 K/mm3 (4.00-11.30)
--- NOTE | 2019-02-15 05:17 | NUR ---
SHIFT SUMMARY PT A&O; DENIES CHEST PAIN; TEMP OF 99.8; PT USES URINAL AT BEDSIDE INDEPENDENT; CALLS APPROPRIATELY; 18 G L AC IV FLUSHES APPROPRIATELY; O2 SATS >93 ON RA; HARSH NON- PRODUCTIVE COUGH NOTED; LUNG SOUNDS CLEAR T/O; SCD'S IN PLACE; NSR W/ HR 90 PER MOBILE HOMES REPAIRER; DENIES NEEDS AT THIS TIME; CALL LIGHT IN REACH; BED IN LOWEST POSITION; WILL CONTINUE TO MONITOR CLOSELY UNTIL HAND OFF TO DAY SHIFT RN.
[2019-02-15] MEDS ORDERED: AMOCLA875 PO (09:03)
[2019-02-15] MEDS ORDERED: Vsl#3 Capsule1 EACH PO (09:04)
[2019-02-15] MEDS ORDERED: GUAI600T33 PO (09:04)
[2019-02-15] MEDS ORDERED: Prednisone10 MG PO (09:08)
--- NOTE | 2019-02-15 10:20 | NUR ---
PT DC WITH ALL BELONGINGS, PT PRIOVIDED WITH TAXI BACK TO [facility]. PT EXPRESSED UNDERSTANDING OF DC TEACHING, DENIES FURTHER NEEDS OR QUESTIONS.
== END 2019-02-15 10:10 | disposition home or self-care (01) ==
LOC: ER 16:07 → PCU 16:08
PROVIDERS: Emergency Medicine; ADMIT Hospitalist
DX: R50.9 Fever, unspecified (principal); J44.0 Chronic obstructive pulmonary disease with (acute) lower respiratory infection; J18.9 Pneumonia, unspecified organism; J44.1 Chronic obstructive pulmonary disease with (acute) exacerbation; M79.671 Pain in right foot; F17.210 Nicotine dependence, cigarettes, uncomplicated; K92.1 Melena; F32.9 Major depressive disorder, single episode, unspecified; K21.9 Gastro-esophageal reflux disease without esophagitis; G89.29 Other chronic pain; M54.9 Dorsalgia, unspecified; F10.10 Alcohol abuse, uncomplicated; Z79.51 Long term (current) use of inhaled steroids; Z79.1 Long term (current) use of non-steroidal anti-inflammatories (NSAID); Z79.899 Other long term (current) drug therapy; Z59.0 Homelessness
CPT/HCPCS: 36415; 71046; 73620; 80053; 81003; 83605; 85025; 87040; 87804; 96365; 96366; 96367; 96372; 99284-25; A9270; G0378; J0456; J0696; J1650; J7030; J7050

== ENCOUNTER 2019-07-03 22:09 | Emergency (ER) | payer OTHER ==
[~2019-07-03] VITALS: Ht 172.7 cm; Wt 68.0 kg
[~2019-07-03 22:09] MED LIST changes: +ALBU2.5V5 INH; +AMOCLA875 PO; +BUDE6HFA INH; +COMBIVENT RESPIM4 GM INH; +GUAI600T33 PO; +NEURONTIN300 MG PO; +Prednisone10 MG PO; +Vsl#3 Capsule1 EACH PO
== END 2019-07-03 22:23 | disposition home or self-care (01) ==
LOC: ER 22:09
DX: F10.129 Alcohol abuse with intoxication, unspecified (principal); R06.2 Wheezing; J44.9 Chronic obstructive pulmonary disease, unspecified; M54.9 Dorsalgia, unspecified; G89.29 Other chronic pain; F17.210 Nicotine dependence, cigarettes, uncomplicated; Z79.899 Other long term (current) drug therapy
CPT/HCPCS: 99284

== ENCOUNTER 2019-07-05 21:09 | Emergency (ER) | payer OTHER ==
[~2019-07-05] VITALS: Ht 172.7 cm; Wt 68.0 kg
[2019-07-05] MEDS ORDERED: Prednisone50 MG PO (21:38)
[2019-07-05] MEDS ORDERED: Duoneb 2.5-0.5 M3 ML INH (21:38)
[2019-07-05] MEDS ORDERED: TIOT18 INH (21:38)
== END 2019-07-05 21:52 | disposition home or self-care (01) ==
LOC: ER 21:09
DX: J44.9 Chronic obstructive pulmonary disease, unspecified (principal); Z72.89 Other problems related to lifestyle; F32.9 Major depressive disorder, single episode, unspecified; K21.9 Gastro-esophageal reflux disease without esophagitis; M54.9 Dorsalgia, unspecified; G89.29 Other chronic pain; F17.210 Nicotine dependence, cigarettes, uncomplicated; Z79.899 Other long term (current) drug therapy
CPT/HCPCS: 94640; 99285-25; J7512

== ENCOUNTER 2020-02-09 05:25 | Inpatient (IN) | payer OTHER ==
[~2020-02-09] VITALS: Ht 172.7 cm; Wt 61.6 kg
[~2020-02-09 05:25] MED LIST changes: +Duoneb 2.5-0.5 M3 ML INH; +Prednisone50 MG PO; +TIOT18 INH
[2020-02-09 05:53] LABS: BASOPHILS ABSOLUTE AUTO 0.04 K/mm3 (0.00-0.23); BASOPHILS PERCENT AUTO 0 % (0-2); EOSINOPHILS ABSOLUTE AUTO 0.15 K/mm3 (0.00-0.68); EOSINOPHILS PERCENT AUTO 1 % (0-6); Hemoglobin 13.3 g/dL (13.5-17.5); IMMATURE GRAN ABSOLUTE AUTO 0.06 K/mm3 (0.00-0.10); IMMATURE GRAN PERCENT AUTO 1 % (0-1); LYMPHOCYTES ABSOLUTE AUTO 1.17 K/mm3 (0.84-5.20); LYMPHOCYTES PERCENT AUTO 9 % (21-46); MONOCYTES ABSOLUTE AUTO 1.31 K/mm3 (0.16-1.47); MONOCYTES PERCENT AUTO 11 % (4-13); Mean Corpuscular HGB 24.7 pg (26.0-34.0); Mean Corpuscular HGB Conc 32.4 g/dL (31.5-36.5); Mean Corpuscular Volume 76 fL (80-100); Mean Platelet Volume 9.4 fL (9.1-12.4); NEUTROPHILS ABSOLUTE AUTO 9.66 K/mm3 (1.96-9.15); NEUTROPHILS PERCENT AUTO 78 % (41-73); Platelet Count 185 K/mm3 (150-400); RDW Coefficient Variation 20.2 % (11.7-14.2); RDW Standard Deviation 53.7 fL (35.1-46.3); Red Blood Cell Count 5.38 M/mm3 (4.30-5.90); White Blood Cell Count 12.39 K/mm3 (4.00-11.30)
[2020-02-09 06:13] LABS: Alanine Aminotransfer (ALT/SGP 139 U/L (12-78); Albumin, Blood 3.4 g/dL (3.4-5.0); Albumin/Globulin Ratio 0.9 (0.8-1.8); Alk Phos 98 U/L (50-136); Anion Gap 5 mmol/L (6-16); Aspartate Aminotrans (AST/SGOT 441 U/L (12-37); Bilirubin, Total 1.1 mg/dL (0.1-1.0); Blood Urea Nitrogen 17 mg/dL (8-24); Bun/Creatinine Ratio 20.8 (12.0-20.0); CO2, Blood 29 mmol/L (21-32); Calcium, Blood 8.8 mg/dL (8.5-10.1); Chloride, Blood 99 mmol/L (98-108); Creatinine, Blood 0.82 mg/dL (0.60-1.20); Globulin, Blood 3.6 g/dL (2.2-4.0); Glomerular Filtration Rate >60 (60-); Glucose, Blood 105 mg/dL (70-99); Potassium, Blood 4.3 mmol/L (3.5-5.5); Sodium, Blood 133 mmol/L (136-145)
[2020-02-09 07:46] LABS: U Amphetamine Screen Not Detected; U Barbituate Screen Not Detected; U Benzodiazapine Screen Not Detected; U Buprenorphine Screen Not Detected; U Cannabinoids Screen Not Detected; U Cocaine Screen Not Detected; U Methadone Screen Not Detected; U Methamphetamine Screen Not Detected; U Opiates Screen Not Detected; U Oxycodone Screen Not Detected; U Phencyclidine Screen Not Detected; U Propoxyphene Screen Not Detected
[2020-02-09 09:34] LABS: CHOL/HDL RATIO 1.7; Cholesterol 132 mg/dL (50-200); HDL Cholesterol 78 mg/dL (>39); LDL/HDL RATIO 0.5; Low Density Lipoprotein Chol 40 mg/dL (0-110); Triglycerides 71 mg/dL (30-160); Very Low Density Lipoprot Chol 14 mg/dL (6-32)
[2020-02-09 09:37] LABS: Percent Saturation 9.1 % (20.0-50.0)
[2020-02-09 09:56] LABS: International Normalized Ratio 0.95; Prothrombin Time Results 10.2 Sec (9.7-11.5)
[2020-02-09] MEDS ORDERED: GABA300 PO (11:35)
[2020-02-09] MEDS ORDERED: TRAZ100 PO (11:36)
[2020-02-09 12:25] LABS: Source, Urine Clean Catch
[2020-02-09 12:27] LABS: Blood, Urine 3+ (Neg); Glucose Qualitative, Urine Neg (Neg); Ketones, Urine 2+ (Neg); Leukocyte Esterase, Urine 1+ (Neg); Nitrite, Urine Neg (Neg); Protein, Urine 1+ (Neg); Urobilinogen, Urine 4+ (Normal)
[2020-02-09 12:42] LABS: Appearance, Urine Clear (Clear); Bilirubin, Urine 1+ (Neg); Color, Urine Amber (P-Yellow)
[2020-02-09 12:45] LABS: Red Blood Cells, Urine 0-2 /hpf (0-2); White Blood Cells, Urine 0-2 /hpf (0-5)
[2020-02-09 12:46] LABS: Bacteria Few /hpf; Squamous Epithelial Cells Rare /hpf (Few)
--- NOTE | 2020-02-09 13:00 | NUR ---
CALLED DR HINES PT TEMP 102.1 ON ARRIVAL, GAVE TYLENOL; ON RECHECK TEMP WAS 101.[address] HINES RECIEVED ORDER FOR COVID R/O, BLOOD CULTURES X2 AND IV TORADOL Q6P FOR FEVER AND PAIN. AFTER TORADOL TEMP WAS 101.0. NOTIFIED.
[2020-02-09 13:26] LABS: Influenza A, PCR Negative (NEGATIVE); SARS-Cov-2 (COVID-19) PCR, MMC Negative (NEGATIVE)
[2020-02-09 13:27] LABS: Influenza B, PCR Negative (NEGATIVE); Resp Syncytial Virus, PCR Negative (NEGATIVE)
--- NOTE | 2020-02-09 19:42 | NUR ---
SHIFT SUMMARY- PT HAS BEEN ALERT AND ORIENTED T/O THE DAY. NO S&S OF ALCOHOL WITHDRAWL. PT HAD A FEVER WHEN HE GOT HERE SEE EMAR FOR MEDS GIVEN. AT SHIFT CHANGE ENTERED THE ROOM AND THE PT WAS SLEEPING DRENCHED IN SWEAT. WASHED HIS FACE REINFORCED HIS IV'S HE WAS VERY SWEATY. RECHECKED TEMP ONCE HE WAS DRIED AND THE TEMP WAS 99.9, THIS IS THE LOWEST IT HAS BEEN SINCE HIS ARRIVAL. PT HAS PALPABLE PULSES IN BLE EDEMA NOTED +2 IN BOTH FEET. TOES ARE ALL BLUE SOME WORSE THAN OTHERS. PTHAS PAIN IN BLE THAT SEEMS WELL MANAGED WITH THE IV TORADOL (GIVEN FOR FEVER) AND TYLENOL WELL THE IV FENTANYL HE RECIEVED IN ED. PT HAS SLEPT AND ATE FREQUENTLY. PT HAS NO S&S OF DISTRESS NOTED AT THE TIME OF SHIFT CHANGE, RESP E/U PT ALERT AND ORIENTED, SWEATY, CALM, DENIES ITCHING SLIGHT TREMMOR NOTED MORE ON THE RIGHT ARM THAN THE LEFT. NIGHT CHANDA ATKINSON IS AWARE.
--- NOTE | 2020-02-10 02:02 | NUR ---
TEMP 100.8; TYLENOL 650MG PO GIVEN.
--- NOTE | 2020-02-10 02:06 | NUR ---
02/09/20 PTS BILATERAL LOWER FEET HAVE +2 EDEMA WITH BLISTERS X 2 NOTED, BOTH FEET TOES ARE PURPLE AND HOT TO TOUCH; PT VOICED LIMITED FEELING IN EXTREMITIES; DENIES PAIN OR NAUSEA; HEPARIN INFUSING WITH NO S/S BLEEDING NOTED OR VOICED.
--- NOTE | 2020-02-10 04:55 | NUR ---
SHIFT SUMMARY: 64 Y/O MALE RESTED COMFORTABLY ALL SHIFT; DENIES NEED FOR PAIN; PTS BLE FEET HAVE +3 EDEMA WITH 1-2 NON OPENED BLISTERS TO FEET; TIPS OF ALL TOES ARE PURPLE; PT VOICED HE HAS LIMITED FEELING BILATERAL FEETS; HEPARIN INFUSING WITHOUT ISSUE; ALERT AND ORIENTED X 4; BED LOW POSITION WITH CALL LIGHT AT SIDE; PT NPO SINCE MIDNIGHT FOR POSSIBLE SURGICAL INTERVENTION TODAY.
[2020-02-10 05:28] LABS: BASOPHILS ABSOLUTE AUTO 0.03 K/mm3 (0.00-0.23); BASOPHILS PERCENT AUTO 0 % (0-2); EOSINOPHILS ABSOLUTE AUTO 0.12 K/mm3 (0.00-0.68); EOSINOPHILS PERCENT AUTO 1 % (0-6); Hematocrit 40.8 % (37.0-53.0); Hemoglobin 12.8 g/dL (13.5-17.5); IMMATURE GRAN ABSOLUTE AUTO 0.06 K/mm3 (0.00-0.10); IMMATURE GRAN PERCENT AUTO 1 % (0-1); LYMPHOCYTES ABSOLUTE AUTO 1.77 K/mm3 (0.84-5.20); LYMPHOCYTES PERCENT AUTO 14 % (21-46); MONOCYTES ABSOLUTE AUTO 1.48 K/mm3 (0.16-1.47); MONOCYTES PERCENT AUTO 11 % (4-13); Mean Corpuscular HGB 24.6 pg (26.0-34.0); Mean Corpuscular HGB Conc 31.4 g/dL (31.5-36.5); Mean Corpuscular Volume 79 fL (80-100); Mean Platelet Volume 10.3 fL (9.1-12.4); NEUTROPHILS ABSOLUTE AUTO 9.69 K/mm3 (1.96-9.15); NEUTROPHILS PERCENT AUTO 74 % (41-73); Platelet Count 154 K/mm3 (150-400); RDW Coefficient Variation 19.7 % (11.7-14.2); RDW Standard Deviation 54.6 fL (35.1-46.3); White Blood Cell Count 13.15 K/mm3 (4.00-11.30)
[2020-02-10 05:51] LABS: Alanine Aminotransfer (ALT/SGP 102 U/L (12-78); Albumin, Blood 2.6 g/dL (3.4-5.0); Albumin/Globulin Ratio 0.7 (0.8-1.8); Alk Phos 79 U/L (50-136); Anion Gap 5 mmol/L (6-16); Aspartate Aminotrans (AST/SGOT 238 U/L (12-37); Bilirubin, Total 0.8 mg/dL (0.1-1.0); Blood Urea Nitrogen 24 mg/dL (8-24); Bun/Creatinine Ratio 25.1 (12.0-20.0); CO2, Blood 29 mmol/L (21-32); Calcium, Blood 8.4 mg/dL (8.5-10.1); Chloride, Blood 98 mmol/L (98-108); Creatinine, Blood 0.96 mg/dL (0.60-1.20); Globulin, Blood 3.8 g/dL (2.2-4.0); Glomerular Filtration Rate >60 (60-); Glucose, Blood 98 mg/dL (70-99); Magnesium, Blood 2.8 mg/dL (1.6-2.4); Potassium, Blood 3.9 mmol/L (3.5-5.5); Sodium, Blood 132 mmol/L (136-145); Total Protein, Blood 6.4 g/dL (6.4-8.2)
--- NOTE | 2020-02-10 15:33 | NUR ---
PT LEFT THE UNIT TO GO TO THE [facility]ART [facility] FOR REVASC. OF THE FEET. HE LEFT VIA WHEEL CHAIR. REPORT CALLED TO JB ARMAS IN PCU.
--- NOTE | 2020-02-10 15:58 | NUR ---
pt arrived to pcu 12 from laborer cutting tool, had a revascularization for ischemic lower limb, pp can be found via doppler, pt is awake a/ox3, cooperative with care, follows commands well, states he's doing ok, banana bag hung as ordered, iv to rfa, feet are red, toes, purplish, larg blister to the top to right foot that opened, and a smaller one that is intact, will monitor v.s. and cath site, keep pt laying flat for now. call light in reach, as well as urinal.
--- NOTE | 2020-02-10 18:31 | NUR ---
cath site is soft, no draining noted, he layed flat for sevral hrs. v.s. stable. no acute changes this shift. call light in reach.
--- NOTE | 2020-02-11 04:48 | NUR ---
SHIFT SUMMARY PT WAS QUIET AND COOPERATIVE WITH CARE, ABLE TO SLEEP MAJORITY OF NIGHT. PT STATED HAVING PAIN IN HIS RIGHT FOOT THAT IS WORSE THAN BEFORE THE PROCEDURE. LEGS WERE VERY WARM TO TOUCH, RED, AND EDEMATOUS 3+ PITTING. PRN MEDICATION WAS GIVEN AND PAIN WAS CONTROLLED. PT WAS FEBRILE T/O MOST OF THE SHIFT, PRN ACETAMINOPHEN WAS GIVEN TWICE WITH A REDUCTION IN FEVER. BP WAS 102 UP TO 131 SYSTOLIC BY AM. HR IN THE 80'S WITH NO CHEST PAIN. O2 SATS >90% ON ROOM AIR. L GROIN SITE WAS WNL, NO TENDERNESS, REDNESS, SWELLING, OR MASSES. PT STATED HAVING NO PAIN AT SITE, ONLY IN R FOOT. PT CURRENTLY SLEEPING AND COMFORTABLE.
[2020-02-11 08:10] LABS: BASOPHILS ABSOLUTE AUTO 0.02 K/mm3 (0.00-0.23); BASOPHILS PERCENT AUTO 0 % (0-2); EOSINOPHILS ABSOLUTE AUTO 0.11 K/mm3 (0.00-0.68); EOSINOPHILS PERCENT AUTO 1 % (0-6); Hemoglobin 11.2 g/dL (13.5-17.5); IMMATURE GRAN ABSOLUTE AUTO 0.07 K/mm3 (0.00-0.10); IMMATURE GRAN PERCENT AUTO 1 % (0-1); LYMPHOCYTES ABSOLUTE AUTO 1.11 K/mm3 (0.84-5.20); LYMPHOCYTES PERCENT AUTO 9 % (21-46); MONOCYTES PERCENT AUTO 10 % (4-13); Mean Corpuscular HGB 24.7 pg (26.0-34.0); Mean Corpuscular HGB Conc 31.1 g/dL (31.5-36.5); Mean Corpuscular Volume 80 fL (80-100); Mean Platelet Volume 10.7 fL (9.1-12.4); NEUTROPHILS ABSOLUTE AUTO 10.12 K/mm3 (1.96-9.15); NEUTROPHILS PERCENT AUTO 80 % (41-73); Platelet Count 128 K/mm3 (150-400); RDW Coefficient Variation 19.9 % (11.7-14.2); RDW Standard Deviation 57.4 fL (35.1-46.3); Red Blood Cell Count 4.53 M/mm3 (4.30-5.90); White Blood Cell Count 12.73 K/mm3 (4.00-11.30)
[2020-02-11 08:34] LABS: Alanine Aminotransfer (ALT/SGP 79 U/L (12-78); Albumin, Blood 2.3 g/dL (3.4-5.0); Albumin/Globulin Ratio 0.6 (0.8-1.8); Alk Phos 75 U/L (50-136); Anion Gap 7 mmol/L (6-16); Aspartate Aminotrans (AST/SGOT 184 U/L (12-37); Bilirubin, Total 0.7 mg/dL (0.1-1.0); Blood Urea Nitrogen 19 mg/dL (8-24); CO2, Blood 25 mmol/L (21-32); Calcium, Blood 8.1 mg/dL (8.5-10.1); Chloride, Blood 101 mmol/L (98-108); Creatinine, Blood 0.79 mg/dL (0.60-1.20); Globulin, Blood 3.7 g/dL (2.2-4.0); Glomerular Filtration Rate >60 (60-); Glucose, Blood 97 mg/dL (70-99); Potassium, Blood 4.1 mmol/L (3.5-5.5); Sodium, Blood 133 mmol/L (136-145)
[2020-02-11] MEDS ORDERED: ALBU90OI INH (15:59)
--- NOTE | 2020-02-11 18:17 | NUR ---
SHIFT SUMMARY PT IS ALERT AND ORIENTEDx4, CHANGED TO MEDICAL STATUS THIS MORNING, NO TELEMETERY. PRIOR TO REMOVAL OF TELE, PT WAS IN SINUS RHYTHM. TMAX THIS EVENING WAS 102. OTHER VITALS HAVE REMAINED STABLE. RLE REMAINS PAINFUL TO PT, PULSE ARE VERY FAINT LEESA LOWER EXTREMTIES. NO DRAINAGE FROM RIGHT FOOT WOUND.
[2020-02-12 04:20] LABS: BASOPHILS ABSOLUTE AUTO 0.02 K/mm3 (0.00-0.23); BASOPHILS PERCENT AUTO 0 % (0-2); EOSINOPHILS PERCENT AUTO 2 % (0-6); Hematocrit 33.8 % (37.0-53.0); Hemoglobin 10.8 g/dL (13.5-17.5); IMMATURE GRAN ABSOLUTE AUTO 0.06 K/mm3 (0.00-0.10); IMMATURE GRAN PERCENT AUTO 1 % (0-1); LYMPHOCYTES ABSOLUTE AUTO 1.41 K/mm3 (0.84-5.20); LYMPHOCYTES PERCENT AUTO 15 % (21-46); MONOCYTES ABSOLUTE AUTO 0.94 K/mm3 (0.16-1.47); MONOCYTES PERCENT AUTO 10 % (4-13); Mean Corpuscular HGB 25.4 pg (26.0-34.0); Mean Corpuscular Volume 79 fL (80-100); Mean Platelet Volume 10.1 fL (9.1-12.4); NEUTROPHILS ABSOLUTE AUTO 6.71 K/mm3 (1.96-9.15); NEUTROPHILS PERCENT AUTO 72 % (41-73); Platelet Count 162 K/mm3 (150-400); RDW Coefficient Variation 19.6 % (11.7-14.2); RDW Standard Deviation 56.1 fL (35.1-46.3); Red Blood Cell Count 4.26 M/mm3 (4.30-5.90); White Blood Cell Count 9.34 K/mm3 (4.00-11.30)
[2020-02-12 04:38] LABS: Alanine Aminotransfer (ALT/SGP 76 U/L (12-78); Albumin, Blood 2.1 g/dL (3.4-5.0); Albumin/Globulin Ratio 0.6 (0.8-1.8); Alk Phos 67 U/L (50-136); Anion Gap 3 mmol/L (6-16); Aspartate Aminotrans (AST/SGOT 158 U/L (12-37); Bilirubin, Total 0.5 mg/dL (0.1-1.0); Blood Urea Nitrogen 18 mg/dL (8-24); Bun/Creatinine Ratio 20.8 (12.0-20.0); CO2, Blood 29 mmol/L (21-32); Calcium, Blood 8.3 mg/dL (8.5-10.1); Chloride, Blood 105 mmol/L (98-108); Creatinine, Blood 0.87 mg/dL (0.60-1.20); Globulin, Blood 3.8 g/dL (2.2-4.0); Glomerular Filtration Rate >60 (60-); Glucose, Blood 105 mg/dL (70-99); Potassium, Blood 4.2 mmol/L (3.5-5.5); Sodium, Blood 137 mmol/L (136-145); Total Protein, Blood 5.9 g/dL (6.4-8.2)
--- NOTE | 2020-02-12 05:22 | NUR ---
SHIFT SUMMARY CHANGES FROM PREVIOUS SHIFT, PT STATED HAVING LESS PAIN IN RLE, SWELLING HAS DECREASED AND PT HAS MORE MOBILITY AND SENSATION IN BLE. PT HAD SLIGHTLY ELEVATED TEMP T/O THE SHIFT AROUND 99F, NO ACETAMINOPHEN WAS GIVEN FOR FEVER BUT PT DID HAVE SCHEDULED TORADOL. PT DENIED HAVING CHILLS. SURGICAL PUNCTURE SITE IN L GROIN IS WNL, NO CHANGES FROM PREVIOUS SHIFT. VITALS STABLE, BP LOW 100'S SYSTOLIC, HR 70'S. PT HAD A RESTFUL, UNEVENTFUL NIGHT.
--- NOTE | 2020-02-12 11:52 | NUR ---
After receiving an admit referral for spiritual care, I visit patient. Patient tells me about his feet and the pain they cause him. 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 He tells me about his fears of not being able to manage his medical conditions as a homeless person or even from being domiciled in a motel. Patient also amits that alcohol has continually caused him to lose the gains he has made and the his other obsticle his the felony on his record. Patient says that [facility] and having yazidism shoved down his throat he may never be spiritual again. I normalize patient's experience, explore source of meaning and value, and provide grief support and spiritual guidance. Patient responds well and appears to be opening up to spiritual/emotional discussions. I will continue to assist patient as he is clearly in spiritual crisis.
--- NOTE | 2020-02-13 01:27 | NUR ---
TRANSFER TO RM 343 PT TO TRANSFER FROM PCU 12 TO RM 343. RECIEVED REPORT FROM U NURSE TATE.
--- NOTE | 2020-02-13 06:46 | NUR ---
SHIFT SUMMARY TRANSFER FROM PCU EARLIER THIS AM. AOX4. HAD TEMP IN PCU OF 101.7, RECIEVED TYLENOL THERE, WHEN PT CAME TO FLOOR WE TOOK ORAL TEMP & IT WAS 99.4, REST OF VITALS WERE STABLE. REPORTED VELA, GAVE TYLENOL & PT STATED RELIEF. HAS MILD TREMORS TO BUE. DENIES DYSPNEA OR N/V. BLE HAVE +2 PITTING EDEMA, ARE RED/HOT TO TOUCH, TOES ARE COLD, PURPLE/BLUE c BLACK SPOTS ON ENDS OF A FEW TOES. HAD ANGIOPLASTY OF R LEG ON 02/10/20. PLAN TO HAVE POSSIBLE L LEG INTERVENTION DONE OUTPATIENT. CALL LIGHT IN REACH & PT ABLE TO MAKE NEEDS KNOWN.
--- NOTE | 2020-02-13 14:35 | NUR ---
CALLED DR. MIRAMONTES'S OFFICE REGARDING QUESTIONS THAT THE PATIENT HAS ABOUT HIS PROCEDURES. OFFICE STATED THAT THE WILL GIVE THE PT A CALL BACK REGARDING HIS QUESTIONS.
--- NOTE | 2020-02-13 18:15 | NUR ---
SHIFT SUMMARY PT A/O X4; PLEASANT AND COOPERATIVE WITH CARE. PT ADMITTED DUE TO ISCHEMIA OF THE LEGS. TOES ARE PURPLE/BLACK AND COOL TO THE TOUCH. FEET ARE RED, SLIGHTLY SWOLLEN, TENDER, AND HOT TO THE TOUCH. PT C/O PAIN IN THE FEET. FEET WERE PREVIOUSLY NUMB. PT HAD QUESTIONS ABOUT THE ANGIOPLASTY AND PLANS FOR DOING ANOTHER OUTPATIENT ON HIS LEFT LEG, SO I PLACED A CALL TO DR. MIRAMONTES AND WAS TOLD THAT HE WOULD CALL THE PATIENT TO ANSWER HIS QUESTIONS. THE PT IS HOMELESS, SO RETURNING FOR ANOTHER PROCEDURE POSES AN ISSUE. PODIATRY IS TO CONSULT THE PT WELL, BUT IS UNAVAILABLE UNTIL 02/18/20. TEMP OF 100.0 THIS AFTERNOON; VSS OTHERWISE.
--- NOTE | 2020-02-13 23:41 | NUR ---
FEVER *LATE ENTRY* PT HAD FEVER OF 102.9 ORALLY EARLIER THIS PASCUAL. PT DENIED CHILLS, VELA OR PAIN. TUNED RM TEMP DOWN, GAVE 650MG TYLENOL & COOL WASHCLOTH, WHEN TEMP RECHECKED IT WAS 98.7 ORALLY. WILL MONITOR.
--- NOTE | 2020-02-14 06:05 | NUR ---
SHIFT SUMMARY AOX4. PT HAD 102.9 FEVER LAST NIGHT, GAVE TYLENOL & TEMP DECREASED TO 98.7, REST OF VITALS STABLE. REPORTS 5/10 PAIN IN BILAT FEET THIS AM, MEDICATED 1X c 5MG OXYCODONE, WILL MONITOR FOR EFFECTIVENESS. BILAT FEET ARE RED/HOT TO TOUCH, +2/3 EDEMA, HAVE N/T, BLISTERS, A FEW TOES ON FEET ARE BLUE/PURPLE c BLACK SPOTS. PT HAD R LEG ANGIOPLASTY ON 02/10/20, PLAN TO HAVE L LEG DONE OUTPATIENT, PT IS AWAITING TO TALK PLAN OVER c DR MIRAMONTES-WILL INFORM ONCOMING NURSE. CALL LIGHT IN REACH & PT ABLE TO MAKE NEEDS KNOWN.
[2020-02-14 08:41] LABS: Hematocrit 33.4 % (37.0-53.0); Hemoglobin 10.7 g/dL (13.5-17.5); Mean Corpuscular HGB 25.5 pg (26.0-34.0); Mean Corpuscular Volume 80 fL (80-100); Mean Platelet Volume 10.2 fL (9.1-12.4); Platelet Count 285 K/mm3 (150-400); RDW Coefficient Variation 19.1 % (11.7-14.2); RDW Standard Deviation 54.7 fL (35.1-46.3); White Blood Cell Count 9.23 K/mm3 (4.00-11.30)
[2020-02-14 08:56] LABS: Anion Gap 6 mmol/L (6-16); Blood Urea Nitrogen 22 mg/dL (8-24); Bun/Creatinine Ratio 25.8 (12.0-20.0); CO2, Blood 30 mmol/L (21-32); Calcium, Blood 8.8 mg/dL (8.5-10.1); Chloride, Blood 100 mmol/L (98-108); Creatinine, Blood 0.85 mg/dL (0.60-1.20); Glomerular Filtration Rate >60 (60-); Glucose, Blood 152 mg/dL (70-99); Potassium, Blood 4.2 mmol/L (3.5-5.5); Sodium, Blood 136 mmol/L (136-145)
--- NOTE | 2020-02-14 19:27 | NUR ---
SHIFT SUMMARY NO ACUTE CHANGES THIS SHIFT. PT A/O X4; PLEASANT AND COOPERATIVE. HAVING MORE PAIN IN THE R LEG THAN THE RIGHT. IV ANTIBIOTICS GIVEN. C/O PAIN ONCE THIS SHIFT AND MEDICATED X1. GETS UP WITH A 1/SBA TO THE BATHROOM W/FWW. VSS; CURRENTLY RESTING IN BED WITH HIS CALL LIGHT IN REACH.
--- NOTE | 2020-02-15 04:43 | NUR ---
SHIFT SUMMARY ASSUMED CARE OF PT AT 1900. PT IS A/OX4. HEART SOUNDS REUGLAR, LUNG SOUNDS CLEAR. PT IS SBA TO BATHROOM WITH WALKER. PT TOES ARE BLACK AND HE HAS FLUID BLITERS ON THE TOPS OF HIS FEET. PT LEGS ARE EDEMADOUS. PT HAS L VALERI SITE, C/D/I AND FREE OF REDNESS. NO ACUTE EVENTS DURING THE NIGHT. PT SLEPT T/O THE NIGHT. CALL LIGHT IN REACH, BED IN LOWEST POSTION.
--- NOTE | 2020-02-15 13:10 | NUR ---
Patient is sitting up in bed and alert. Patient tells me that he is doing well but is anxious about not knowing what will happen with his toes in terms of aputation. He is also stressed about his stuff that was left in his hotel room when he had to come by ambulance to the hospital. We talk about was to finding peace including calling and checking on his belongings, meditation and prayer. I provide therapeutic listening and prayer. Patient responds well and shows signs of reduced stress. I will continue to remain available to patient.
--- NOTE | 2020-02-15 17:27 | NUR ---
PT TO [facility]ART [facility]ENTER FOR ANGIO.
--- NOTE | 2020-02-15 17:49 | NUR ---
PT BELONGINGS TAKEN TO U 4.
--- NOTE | 2020-02-15 18:04 | NUR ---
SHIFT SUMMARY PT IS A&O. PT IS 1 PERS TRANSFER WITH FWW AND GAIT BELT. PT IS ABLE TO MAKE NEEDS KNOWN AND CALLS APPROPRIATLY. DR. MCDERMOTT ORDER CONSULT TO HAVE LEFT LEG EXAMED BY DR MIRAMONTES. AUDELIA GTZ CAME TALKED WITH PT AND SCHEDULE AN ANGIO FOR TONIGHT. DR. MCDERMOTT WAS NOTIFIED. AUDELIA GTZ ALSO TALKED WITH PT ABOUT SMOKING HABIT, PT SEEMED RECEPTIVE TO THE IDEA OF QUITING. PT IS CURENTLY IN SURGERY AND WILL GO TO PCU 3 AFTER. REPORT GIVEN TO SHARRON ARMAS.
--- NOTE | 2020-02-15 18:45 | NUR ---
PATIENT ARRIVED FROM HEART CENTER, PATIENT IS ALERT AND ORIENTED, CONVERSING WITH NURSING STAFF. VSS, ON ROOM AIR AND O2 SATS IN 90S. NO SIGNS OF DISCHARGE/HEMATOMA AT R. GROIN SITE, PT DENIES PAIN/DISCOMFORT. PATIENT DENIES CHEST PAIN/PRESSURE. NO SIGNS OF ACUTE DISTRESS, WCTM.
--- NOTE | 2020-02-15 21:10 | NUR ---
CARE ASSUMPTION PT RESTING IN BED, R GROIN SITE DRESSING C/D/I. NO SIGNS OF HEMATOMA OR DISCHARGE. PT DENIES PAIN/DISCOMFORT. VITAL SIGNS STABLE. WILL CONTINUE TO MONITOR.
--- NOTE | 2020-02-16 00:36 | NUR ---
UPDATE PATIENT RESTING FLAT. R AND L GROIN SITE, SCANT DRIED BLOOD. NO SIGNS OF BLEEDING, OR HEMATOMA. L SIGHT HAS MINIMAL BRUISING. PATIENT SLEEPING AND BENDS KNEES SLIGHTLY DESPITE EDUCATION AND REMINDERS TO KEEP LEGS STRAIGHT. WILL CONTINUE TO MONITOR SIGHT. PATIENT COMPLAINED OF MINIMAL BACK PAIN FROM LAYING FLAT POST ANGIO, HELPED TO REPOSITION. NO OTHER COMPLAINTS OF PAIN. FEET ARE RED ON TOPS WITH BLISTER AND SOME BLUE/PURPLE DISCOLORATION. DRY AND PEELING ON TOPS AND AROUND ANKLES. BLISTERS PRESENT ON TOPS OF BOTH FEET. TOES DARKER BLUE/BLACK COLORING. DISTAL PEDAL PULSES STRONG AND PALPABLE. PATIENT STATES "FEET FEEL COLD" AND WANTS THEM COVERED BY BLANKETS. REPORTS SOME NUMBNESS AND TINGLING. PATIENT SLIGHTLY SWEATY, TEMPERATURE WITHIN NORMAL LIMITS AND COMFIRMED WITH ORAL THERMOMETER. PATIENT STATED BEING SWEATY WAS NORMAL FOR HIM. WILL CONTINUE TO MONITOR. WHEN SLEEPING PATIENTS OXYGEN SATURATION REMAINED AT 89-90% 1 L O2 VIA NASAL CANNULA APPLIED. PATIENT NOW SATING AT 93-94%.
--- NOTE | 2020-02-16 04:03 | NUR ---
R GROIN SITE UPDATE: UPON REASSESSING SITE, GOLF BALL SIZED HEMATOMA FORMED. MANUAL PRESSURE HELD FOR 30 MIN. HEMATOMA REDUCED TO PEA SIZE. 2ND RN IN ROOM. VITAL SIGNS STABLE. DISTAL PEDAL PULSES STRONG. BLANKET PLACED OVER RIGHT LEG AND TUCKED UNDER MATTRESS REMINDER TO NOT BEND LEG. DRESSING REMAINS UNCHANGED. SCANT AMOUNT OF DRIED BLOOD. 2ND RN AND I REASSESSED AFTER 10 MIN AND HEMATOMA INCREASED FROM PEA SIZED TO MARBLE. MANUAL PRESSURE HELD FOR 10 MIN. ADDITIONAL PILLOWS ADDEDD TO STABALIZE PATIENT IN BED TO FUTHER LIMIT LEG MOVEMENT. PATIENT EDUCATION ABOUT KEEPING LEG STRAIGHT REINFORCED. PATIENT SEEMS TO MOVE LEGS IN SLEEP. WILL CONTINUE TO MONITOR CLOSELY.
--- NOTE | 2020-02-16 06:00 | NUR ---
SHIFT SUMMARY PT ALERT AND ORIENTED. ON ROOM AIR, SATING ABOVE 92%. TELE - SINUS RHYTHM, HR IN THE 60-70's MOST OF SHIFT. DENIES CHEST PAIN. USING THE URINAL TO VOID. SEE PREVIOUS NOTE TITLED UPDATE FOR INFORMATION ON FEET. DISTAL PULSES STRONG AND PALPABLE. SLIGHT LEFT FOREARM REDNESS AND WARMTH NOTED. LOWER BACK PAIN THIS SHIFT, MEDICATED PER EMAR. DOES NOT COMPLAIN OF FOOT PAIN, STATED HE FEELS THE TINGLING AND NUMBNESS IS GETTING BETTER. L GROIN SITE C/D/I, NO SIGNS HEMATOMA OR BLEEDING. R GROIN SITE MODERATE SWELLING WITH HEMATOMA. SEE PREVIOUS NOTES ABOUT R GROIN SITE AND MANUAL PRESSURE THAT WAS HELD. CURRENTLY PATIENT IN [place] WITH SAND BAG ON SIGHT. NO CHANGES SINCE LAST NOTE, WITH REASSESSING EVERY 15-30 MIN. WILL CONTINUE TO MONITOR. EDUCATION ON LAYING FLAT AND NOT BENDING REINFORCED.
--- NOTE | 2020-02-16 09:28 | NUR ---
The pt c/o back pain this morning at bedside report. Groin sites were visualized with noc shift RN, who reported that a small hematoma had been discovered by palpation on the right groin this morning around 3am. The pt was kept on bedrest. At bedside report, he was c/o back pain. Pt was brought to HOB position approx 20 degrees. No bruising, no bleeding noted at right groin site and the firm area was unchaged per noc shift RN. An hour later, pt's HOB was elevated again due to c/o back pain, and relieved by him sitting up. He stated that the pain was the same chronic back pain which he has most of the time. Pt stated relief at this time while he is sitting up in chair. C/O pain in his ankles, which he says he hopes will get better after the swelling goes down.
--- NOTE | 2020-02-16 09:56 | NUR ---
WHILE sitting up in chair, feet elevated on footstool with pillow for comfort
--- NOTE | 2020-02-16 13:13 | NUR ---
After pt's shower and lunch, wound care completed to both of his feet. ARea cleansed with soap and water, towel dry during shower. Silvadene ointment applied to open areas. Non-adherent 2x3 in pads applied in between toes to prevent adhesion of moist areas. 5x9 in xerform petrolatum dressing applied to dorsal surfaces of feet where there are blisters both intact and unintact. covered then with sterile gauze fluffs, kerlix and secured with martin wrap. The pt states that his feet are numb. Tolerated the wound care well.
--- NOTE | 2020-02-16 15:44 | NUR ---
Telephone report was given to Tai Gamez, and the pt was transferred to medical floor via wheelchair by the PCT Evens.
--- NOTE | 2020-02-16 16:19 | NUR ---
PCU TRANSFER TO 357 PT ARRIVE TO VIA W/C APPROX 1500. HE IS ABLE TO STAND & CAREFULLY AMBULATE w FWW TO CHAIR. BLE IN DRSGS, CDI. HE STATE PAIN RELIEF/CONTROL @ THIS TIME. A/O X4, PLAEASANT. ORIENTED TO & CALL SYSTEM. FLUIDS/SNACK PROVIDED. CALL LIGHT IN REACH. IV ANTIBX CEFEPIME INFUSING/ORDER.
[2020-02-16 20:39] LABS: Vancomycin, Trough 16.6 ug/mL (5.0-10.0)
[2020-02-17 05:26] LABS: BASOPHILS ABSOLUTE AUTO 0.02 K/mm3 (0.00-0.23); BASOPHILS PERCENT AUTO 0 % (0-2); EOSINOPHILS ABSOLUTE AUTO 0.26 K/mm3 (0.00-0.68); EOSINOPHILS PERCENT AUTO 3 % (0-6); Hematocrit 33.1 % (37.0-53.0); Hemoglobin 10.5 g/dL (13.5-17.5); IMMATURE GRAN ABSOLUTE AUTO 0.13 K/mm3 (0.00-0.10); IMMATURE GRAN PERCENT AUTO 1 % (0-1); LYMPHOCYTES ABSOLUTE AUTO 1.59 K/mm3 (0.84-5.20); LYMPHOCYTES PERCENT AUTO 17 % (21-46); MONOCYTES ABSOLUTE AUTO 1.23 K/mm3 (0.16-1.47); MONOCYTES PERCENT AUTO 13 % (4-13); Mean Corpuscular HGB Conc 31.7 g/dL (31.5-36.5); Mean Corpuscular Volume 79 fL (80-100); Mean Platelet Volume 9.9 fL (9.1-12.4); NEUTROPHILS ABSOLUTE AUTO 6.13 K/mm3 (1.96-9.15); NEUTROPHILS PERCENT AUTO 66 % (41-73); Platelet Count 489 K/mm3 (150-400); RDW Coefficient Variation 18.5 % (11.7-14.2); RDW Standard Deviation 52.9 fL (35.1-46.3); White Blood Cell Count 9.36 K/mm3 (4.00-11.30)
--- NOTE | 2020-02-17 05:28 | NUR ---
EXTRUSION DIE CORRECTOR SUMMARY PT A&OX4, ABLE TO MAKE NEEDS KNOWN. PLEASANT AND COOPERATIVE TO CARE. NO C/O PAIN OR ANY DISCOMFORT THIS SHIFT. NO C/O CP, SOB OR N&V. PT CONT ON IV ABX, NO ASE NOTED, PT CALM AND RESTED IN BED T/O SHIFT, BED AT LOWEST POSITION, CALL LIGHT WITHIN REACH.
[2020-02-17 05:54] LABS: Anion Gap 3 mmol/L (6-16); Blood Urea Nitrogen 29 mg/dL (8-24); Bun/Creatinine Ratio 31.4 (12.0-20.0); CO2, Blood 33 mmol/L (21-32); Chloride, Blood 99 mmol/L (98-108); Creatinine, Blood 0.92 mg/dL (0.60-1.20); Glomerular Filtration Rate >60 (60-); Glucose, Blood 94 mg/dL (70-99); Potassium, Blood 4.4 mmol/L (3.5-5.5); Sodium, Blood 135 mmol/L (136-145)
--- NOTE | 2020-02-17 19:35 | NUR ---
SHIFT SUMMARY: NO ACUTE CHANGES TO REPORT THIS SHIFT. PT A&O; CALM AND COOPERATIVE WITH CARE. MEDICATED FOR BILATERAL FOOT PAIN PER EMAR; WOUND CARE PERFORMED THIS SHIFT; PT TOLERATED WELL. TELE IN PLACE; SR @ 75 PER DIGITAL EXPERIENCE MANAGER. IV ABX CONTINUING; AWAITING PODIATRY CONSULT. REPORT GIVEN TO ONCOMING RN.
--- NOTE | 2020-02-18 04:43 | NUR ---
OFFICE MANAGER EXECUTIVE ASSISTANT SUMMARY PT A&OX4, ABLE TO MAKE NEEDS KNOWN. PLEASANT AND COOPERATIVE TO CARE. PT MEDICATED FOR LEESA FEET NUMBNESS AND PAIN PER EMAR. DRESSING TO AA C/D/I. PT NO C/O CP, SOB, OR N&V. PT CONT ON IV ABX, NO ASE NOTED. PT CALM AND RESTED IN BED T/O SHIFT. BED AT LOWEST POSITION. CALL LIGHT WITHIN REACH.
--- NOTE | 2020-02-18 16:35 | NUR ---
ALERT. ORIENTED. PLEASANT. COOPERATIVE. ABLE TO MAKE NEEDS KNOWN. MEDICATED FOR PAIN WITH TOLERABLE RESULTS. DOES NOT WISH TO DO ANY WEIGHT BEARING ON RT FOOT IS AFRAID TO. ABLE TO MAKE NEEDS KNOWN. WOUND VAC ON. UNLABORED RESPIRATIONS. NIETO IN AND DRAINING TO GRAVITY. IV PATENT. WCTM
--- NOTE | 2020-02-18 16:42 | NUR ---
ALERT. ORIENTED. DRESSINGS TO BILATERAL FEET CHANGED AND PICS TAKEN. HAS BEEN IN TO SEE. ANTIBIOTICS CONTINUED. IV PATENT. UNLABORED RESPIRATIONS. MEDICATED FOR PAIN WITH GOOD RESULTS. WCTM
[2020-02-19 05:21] LABS: Hemoglobin 10.2 g/dL (13.5-17.5); Mean Corpuscular HGB 25.3 pg (26.0-34.0); Mean Corpuscular HGB Conc 31.9 g/dL (31.5-36.5); Mean Corpuscular Volume 79 fL (80-100); Mean Platelet Volume 9.8 fL (9.1-12.4); Platelet Count 561 K/mm3 (150-400); RDW Coefficient Variation 18.3 % (11.7-14.2); RDW Standard Deviation 53.2 fL (35.1-46.3); Red Blood Cell Count 4.03 M/mm3 (4.30-5.90); White Blood Cell Count 9.78 K/mm3 (4.00-11.30)
[2020-02-19 05:46] LABS: Anion Gap 4 mmol/L (6-16); Blood Urea Nitrogen 29 mg/dL (8-24); Bun/Creatinine Ratio 34.3 (12.0-20.0); CO2, Blood 33 mmol/L (21-32); Calcium, Blood 9.3 mg/dL (8.5-10.1); Chloride, Blood 97 mmol/L (98-108); Creatinine, Blood 0.85 mg/dL (0.60-1.20); Glomerular Filtration Rate >60 (60-); Glucose, Blood 96 mg/dL (70-99); Potassium, Blood 4.6 mmol/L (3.5-5.5); Sodium, Blood 134 mmol/L (136-145)
--- NOTE | 2020-02-19 06:11 | NUR ---
02/19/20 0610 WATCHING TV AND STATED HE GOT SOME GOOD SLEEP LAST NIGHT. MEDICATED FOR PAIN TWICE THIS SHIFT WITH RELIEF. HAD TO BE ENCOURAGED TO TURN OFF COCCYX TO PREVENT SKIN BREAKDOWN. HE DID AGREE TO LAY ON SIDES ON AND OFF LAST NIGHT. VITALS STABLE. DRESSINGS INTACT TO BLE. VOIDING FREQUENTLY CLEAR, YELLOW URINE.
[2020-02-19 06:13] LABS: BAND PERCENT MAN 2 % (0-8); BASOPHILS PERCENT MAN 0 % (0-2); EOSINOPHILS ABSOLUTE MAN 0.39 K/mm3 (0.00-0.68); EOSINOPHILS PERCENT MAN 4 % (0-6); LYMPHOCYTES ABSOLUTE MAN 1.95 K/mm3 (0.84-5.20); LYMPHOCYTES PERCENT MAN 20 % (21-46); MONOCYTES ABSOLUTE MAN 0.97 K/mm3 (0.16-1.47); MONOCYTES PERCENT MAN 10 % (4-13); NEUTROPHILS ABSOLUTE MAN 6.45 K/mm3 (1.96-9.15); SEG NEUTROPHILS PERCENT MAN 64 % (41-73); TOTAL CELLS COUNTED 100
--- NOTE | 2020-02-19 18:29 | NUR ---
PT QUITE PLEASANT TODAY. WOUND DRESSINGS CHANGED ON FEET TODAY WITH ASSISTANCE OF STUDENT RN. PT TK WELL. DID GET UP AND TRANSFERRED TO CHAIR TODAY WITH PT/OT. PAIN MANAGED WITH AVAIL MEDS. NO NEW CONCERNS. GROIN SITE CDI. NO BLEEDING OR HEMATOMA NOTED. BED IN LOW POSITION, CALL LITE IN REACH, CALLS APPROP
--- NOTE | 2020-02-20 06:42 | NUR ---
02/20/20 0630 AWAKE AND CHEERFUL STATED HE SLEPT WELL LAST NIGHT. VITALS STABLE THIS SHIFT. MEDICATED TWICE FOR "FEET" PAIN. SELF TURNS IN BED. UNEVENTFUL NIGHT.
[2020-02-20 08:33] LABS: BASOPHILS ABSOLUTE AUTO 0.05 K/mm3 (0.00-0.23); BASOPHILS PERCENT AUTO 1 % (0-2); EOSINOPHILS ABSOLUTE AUTO 0.32 K/mm3 (0.00-0.68); EOSINOPHILS PERCENT AUTO 3 % (0-6); Hematocrit 34.6 % (37.0-53.0); Hemoglobin 10.8 g/dL (13.5-17.5); IMMATURE GRAN ABSOLUTE AUTO 0.16 K/mm3 (0.00-0.10); IMMATURE GRAN PERCENT AUTO 2 % (0-1); LYMPHOCYTES ABSOLUTE AUTO 1.43 K/mm3 (0.84-5.20); LYMPHOCYTES PERCENT AUTO 14 % (21-46); MONOCYTES ABSOLUTE AUTO 0.83 K/mm3 (0.16-1.47); MONOCYTES PERCENT AUTO 8 % (4-13); Mean Corpuscular HGB 24.8 pg (26.0-34.0); Mean Corpuscular HGB Conc 31.2 g/dL (31.5-36.5); Mean Corpuscular Volume 80 fL (80-100); Mean Platelet Volume 9.8 fL (9.1-12.4); NEUTROPHILS ABSOLUTE AUTO 7.15 K/mm3 (1.96-9.15); NEUTROPHILS PERCENT AUTO 72 % (41-73); Platelet Count 671 K/mm3 (150-400); RDW Coefficient Variation 18.4 % (11.7-14.2); Red Blood Cell Count 4.35 M/mm3 (4.30-5.90); White Blood Cell Count 9.94 K/mm3 (4.00-11.30)
[2020-02-20 08:54] LABS: Alanine Aminotransfer (ALT/SGP 29 U/L (12-78); Albumin, Blood 2.5 g/dL (3.4-5.0); Albumin/Globulin Ratio 0.5 (0.8-1.8); Alk Phos 88 U/L (50-136); Anion Gap 4 mmol/L (6-16); Aspartate Aminotrans (AST/SGOT 14 U/L (12-37); Bilirubin, Total 0.5 mg/dL (0.1-1.0); Blood Urea Nitrogen 27 mg/dL (8-24); Bun/Creatinine Ratio 33.3 (12.0-20.0); CO2, Blood 31 mmol/L (21-32); Calcium, Blood 9.7 mg/dL (8.5-10.1); Chloride, Blood 98 mmol/L (98-108); Creatinine, Blood 0.81 mg/dL (0.60-1.20); Glomerular Filtration Rate >60 (60-); Glucose, Blood 99 mg/dL (70-99); Magnesium, Blood 2.3 mg/dL (1.6-2.4); Potassium, Blood 4.8 mmol/L (3.5-5.5); Sodium, Blood 133 mmol/L (136-145); Total Protein, Blood 7.5 g/dL (6.4-8.2); Vancomycin, Trough 16.8 ug/mL (5.0-10.0)
--- NOTE | 2020-02-20 18:47 | NUR ---
SHIFT SUMMARY AURA GOT PO OXY FOR HIS PAIN. WOUNDS CLEANED AND REDRESSED PER ORDER. PT HAS VERY LITTLE SENSATION BELOW HIS ANKLES, TOES ARE BLACK. R POWERGLIDE PLACED TODAY. USED URINAL APPROPRIATELY, TOOK MEDS PRESCRIBED, WCTM
[2020-02-21 04:54] LABS: BASOPHILS ABSOLUTE AUTO 0.05 K/mm3 (0.00-0.23); BASOPHILS PERCENT AUTO 1 % (0-2); EOSINOPHILS ABSOLUTE AUTO 0.29 K/mm3 (0.00-0.68); EOSINOPHILS PERCENT AUTO 3 % (0-6); Hematocrit 36.6 % (37.0-53.0); Hemoglobin 11.3 g/dL (13.5-17.5); IMMATURE GRAN ABSOLUTE AUTO 0.14 K/mm3 (0.00-0.10); IMMATURE GRAN PERCENT AUTO 2 % (0-1); LYMPHOCYTES ABSOLUTE AUTO 1.21 K/mm3 (0.84-5.20); LYMPHOCYTES PERCENT AUTO 13 % (21-46); MONOCYTES ABSOLUTE AUTO 0.75 K/mm3 (0.16-1.47); MONOCYTES PERCENT AUTO 8 % (4-13); Mean Corpuscular HGB 24.7 pg (26.0-34.0); Mean Corpuscular HGB Conc 30.9 g/dL (31.5-36.5); Mean Corpuscular Volume 80 fL (80-100); Mean Platelet Volume 9.3 fL (9.1-12.4); NEUTROPHILS ABSOLUTE AUTO 6.64 K/mm3 (1.96-9.15); NEUTROPHILS PERCENT AUTO 73 % (41-73); Platelet Count 754 K/mm3 (150-400); RDW Coefficient Variation 18.5 % (11.7-14.2); RDW Standard Deviation 53.6 fL (35.1-46.3); Red Blood Cell Count 4.58 M/mm3 (4.30-5.90); White Blood Cell Count 9.08 K/mm3 (4.00-11.30)
--- NOTE | 2020-02-21 05:06 | NUR ---
SHIFT SUMMARY NO ACUTE CHANGES TO REPORT THIS SHIFT. PT HAS RESTED MOST OF THE NIGHT, HE HAS DENIED NEEDS AND PAIN IN HIS FEET HAS BEEN MINIMAL. HE HAS NOT REQUESTED ANYTHING FOR PAIN IN HIS FEET. WOUNDS WERE DRESSED BY DAYSHIFT RN ORDERED, DRESSINGS ARE INTACT. IV ANTIBIOTICS ORDERED. VITALS ARE STABLE. PT REMAINS I PA TO THE BATHROOM. ASSESSMENT REMAINS UNCHANGED. BED IN LOWEST POSITION, CALL LIGHT WITHIN REACH.
[2020-02-21 05:13] LABS: Alanine Aminotransfer (ALT/SGP 30 U/L (12-78); Albumin, Blood 2.5 g/dL (3.4-5.0); Albumin/Globulin Ratio 0.5 (0.8-1.8); Alk Phos 91 U/L (50-136); Anion Gap 4 mmol/L (6-16); Aspartate Aminotrans (AST/SGOT 16 U/L (12-37); Bilirubin, Total 0.3 mg/dL (0.1-1.0); Blood Urea Nitrogen 34 mg/dL (8-24); Bun/Creatinine Ratio 36.7 (12.0-20.0); CO2, Blood 33 mmol/L (21-32); Calcium, Blood 9.7 mg/dL (8.5-10.1); Chloride, Blood 99 mmol/L (98-108); Creatinine, Blood 0.93 mg/dL (0.60-1.20); Globulin, Blood 5.3 g/dL (2.2-4.0); Glomerular Filtration Rate >60 (60-); Glucose, Blood 103 mg/dL (70-99); Sodium, Blood 136 mmol/L (136-145); Total Protein, Blood 7.8 g/dL (6.4-8.2)
--- NOTE | 2020-02-21 14:42 | NUR ---
PERMISSION FOR CARE: PATIENT GAVE THIS SENIOR ENVIRONMENTAL SCIENTIST, KRYSTAL Wai SAGAR, PERMISSION TO ASSIST KIM PANG RN WITH CARE ON 02/21/20.
--- NOTE | 2020-02-21 15:37 | NUR ---
Patient talks about how depressed he has been about his possible amputation and how "deep the cut might be." Patient also shares other personal reasons for the depression and at times despair. I conduct a life review and learn about his 3 wives, a daughter by one, a son by another and most recent of cancer 2yrs ago. Patient paints the picture of what years of homelessness is like and how his choices led to this lifestyle. I normalize patient's experience, hear confession, provide companionship, emotional support and prayer. Patient responds well and shows signs of an elevated mood and catharsis. I will continue to remain available to patient.
--- NOTE | 2020-02-21 18:03 | NUR ---
SHIFT SUMMARY- PT IS A/O, PLESANT AND COOPERATIVE. HE IS EATING AND DRINKING WELL. HE TOOK A SHOWER THIS SHIFT. HE C/O PAIN IN HIS BLADDER, SCANNED AND HE WAS 125ML. CHANGED HIS BANDAGE THIS SHIFT. DR. PYLE WILL BE IN TOMMOROW TO EVALUATE HIS FEET. HIS BED IS IN THE LOW POISTION AND CALL LIGHT IS WITHIN REACH.
--- NOTE | 2020-02-22 06:58 | NUR ---
SHIFT SUMMARY PATIENT ALERT AND ORIENTED. HAD NO COMPLAINTS OF SHORTNESS OF BREATH. MEDICATED PER EMAR FOR PAIN. PATIENT SLEPT WELL OVERNIGHT. POWERGLIDE PATENT AND FLUSHED. BED IN LOWEST POSITION WITH WHEELS LOCKED AND ALARM ON. CALL LIGHT WITHIN REACH. REPORT GIVEN TO ONCOMING RN.
--- NOTE | 2020-02-22 19:00 | NUR ---
ASSUMED CARE RECEIVED REPORT FROM CHANDA FATIMA. PT RESTING IN BED, NO S/S ACUTE DISTRESS OR NEEDS NOTED. RESPS E/U. CALL LIGHT, POSSESSIONS IN REACH, CONTINUE TO MONITOR.
--- NOTE | 2020-02-22 19:17 | NUR ---
a+o, in to assess and recomend, dressings changed as directed by , call light in reach, saline locked, rm air, requested pain medication when giving bsr with noc nurse who acknowleged the need for treatments, states he was able to get up with pt, sitting up watching tv
--- NOTE | 2020-02-23 04:14 | NUR ---
SHIFT SUMMARY PT ASLEEP, NO S/S ACUTE DISTRESS NOTED, WAS MONITORED EVERY 1-2 HOURS WITH NEEDS MET. VS REVIEWED, WNL, 02 SATS STABLE. PT MEDICATED FOR PAIN PER EMAR, WITH GOOD RELIEF. SLEPT T/O MUCH OF THE NIGHT. DENIES PAIN OR NEEDS AT THIS TIME. [facility] WILL CONTINUE TO MONITOR UNTIL REPORT GIVEN TO DAY RN.
[2020-02-23 08:39] LABS: Creatinine, Blood 0.93 mg/dL (0.60-1.20); Vancomycin, Trough 19.4 ug/mL (5.0-10.0)
--- NOTE | 2020-02-23 14:48 | NUR ---
Patient is resting but easily awakens. Patient talks about his most recent doctor's report regarding his toes and then talks about being depressed the last couple days. Patient decribes his life and the emptiness of it all. I try to help patient frame things in a new way by looking at the good things he is enjoying right now and the life altering (in a good way) possibilities in the future. Patient responds well and gradually comes up in his posture, facial expressions and tone of conversation. I will continue to remain available to patient.
--- NOTE | 2020-02-23 18:39 | NUR ---
a+o, awaiting placement, dressing changed on feet, medicated as prescribed, call light in reach, rm air, abx infused with no s/sx of infection or infiltration, rm air, will continue to monitor and treat until share bsr with noc nurse and pt
--- NOTE | 2020-02-24 05:56 | NUR ---
SHIFT SUMMARY- PT. A&O, HAD NO COMPLAINTS DURING THE NIGHT. MEDICATED 2X FOR LEESA ANKLE/FOOT PAIN. ASLEEP T/O THE NIGHT, NO APPARENT DISTRESS NOTED. DSG TO FEET IN PLACE, C/D/I. VSS. CALL LIGHT WITHIN REACH AND SIDE RAILS UPX2. WILL CONT TO MONITOR.
--- NOTE | 2020-02-24 17:44 | NUR ---
SUMMARY PT IS A/O X4, GENERALLY PLEASANT. STATE CONTINUING BLE PAIN, PRN TYLENOL & OXYCODONE GIVEN FOR RELIEF/CONTROL. STATE CONTINUING N/T BOTH FEET. WOUND CARE/DRSG CHANGE PROVIDED TODAY, TOES NECROTIC, BLISTERS CONTINUE TOP OF FEET. PLAN IS FOR BLISTERS TO HEAL BEFORE PODIATRY AMPUTATE TOES, POSSIBLE D/C TO SNF, RN CARE MANAGERS INVOLVED. VSS/AFEBRILE.
--- NOTE | 2020-02-25 04:58 | NUR ---
SHIFT SUMMARY- PT. HAD A FEVER OF 101.2 LAST NIGHT WITH C/O NAUSEA. ALSO C/O LEESA FOOT PAIN AND NUMBNESS. MEDICATED PER EMAR WITH GOOD EFFECT. PT. REPORTED NAUSEA IMPROVED AND TEMP WNL. APPEARED TO HAVE RESTED COMFORTABLY THE REST OF THE NIGHT, NO APPARENT DISTRESS NOTED. DENIED ANY OTHER NEEDS DURING THE NIGHT. DSG TO FEET C/D/I. CALL LIGHT WITHIN REACH AND SIDE RAILS UP X2. WILL CONT TO MONITOR.
--- NOTE | 2020-02-25 17:48 | NUR ---
SUMMARY DR HINES STOPPED IV CEFEPIME & VANCO THIS AM, START IV ROCEPHIN. LOW GRADE TEMP THIS AM 100.4, TYLENOL GIVEN THIS AFTERNOON TEMP 97.4. INTERNET [employer]ER[employer] SPECIALIST GIVE PT BEDBATH TODAY. HE WAS UP IN CHAIR FOR PERIOD OF TIME. LUNGS SLIGHTLY COARSE THIS AM, PT GIVEN INCENTSPIR, INSTRUCTED ON USE. BLE DRSG CHANGED TODAY. HE STATE CONTINUING BLE NEUROPATHY, BURNING/STABBING TYPE PAIN, HAVE GIVEN OXYCODONE 7.5MG X2 FOR RELIEF/CONTROL. DR HINES ADD IV TORADOL. PT IS A/O X4, PLEASANT/COOPERATIVE AFFECT. VSS. NO BM X2-3 DAYS, PRUNE JUICE GIVEN, DR HINES ORDER STOOL SOFTNER.
--- NOTE | 2020-02-26 05:20 | NUR ---
SHIFT SUMMARY- PT. HAD NO ACUTE EVENTS OVERNIGHT. MEDICATED FOR PAIN TO LEESA FEET/ANKLES PER EMAR. ALSO WITH SCHEDULED TORADOL, PT. REPORTED GOOD RELIEF. NO OTHER NEEDS DURING THE NIGHT. APPEARED TO HAVE SLEPT COMFORTABLY T/O THE SHIFT, NO APPARENT DISTRESS NOTED. VSS. CALL LIGHT WITHIN REACH AND SIDE RAILS UPX2. WILL CONT TO MONITOR.
--- NOTE | 2020-02-26 19:25 | NUR ---
SHIFT SUMMARY DANIKA GOT OXY FOR PAIN ONCE THIS SHIFT. BLE CLEANED AND REDRESSED. NYSTATIN ORDERED FOR GROIN RASH. USED URINAL APPROPRIATELY, HAD BM IN TOILET WITH SBA, CALLED APPOPRIATELY. TOOK MEDS PRESCRIBED, CALL LIGHT IN REACH, REPORT GIVEN TO NIGHT NURSE
--- NOTE | 2020-02-27 07:32 | NUR ---
02/27/20 0615 AWAKE AND STATED HE SLEPT "FAIR" LAAST NIGHT. NO REASON GIVEN. SLIGHT FEVER NOTED THIS SHIFT BUT PT INSISTS ON HAVING HEATER SET HIGH. MEDICATED FOR LEESA. FOOT PAIN. DRESSINGS INTACT TO BOTH FEET.
[2020-02-27 11:29] LABS: Hematocrit 37.3 % (37.0-53.0); Hemoglobin 11.8 g/dL (13.5-17.5); Mean Corpuscular HGB 25.4 pg (26.0-34.0); Mean Corpuscular HGB Conc 31.6 g/dL (31.5-36.5); Mean Corpuscular Volume 80 fL (80-100); Mean Platelet Volume 9.5 fL (9.1-12.4); Platelet Count 490 K/mm3 (150-400); RDW Coefficient Variation 18.4 % (11.7-14.2); RDW Standard Deviation 52.4 fL (35.1-46.3); Red Blood Cell Count 4.65 M/mm3 (4.30-5.90); White Blood Cell Count 9.67 K/mm3 (4.00-11.30)
[2020-02-27 12:03] LABS: Anion Gap 4 mmol/L (6-16); Blood Urea Nitrogen 26 mg/dL (8-24); Bun/Creatinine Ratio 29.4 (12.0-20.0); CO2, Blood 32 mmol/L (21-32); Chloride, Blood 97 mmol/L (98-108); Creatinine, Blood 0.88 mg/dL (0.60-1.20); Glomerular Filtration Rate >60 (60-); Glucose, Blood 85 mg/dL (70-99); Potassium, Blood 4.9 mmol/L (3.5-5.5); Sodium, Blood 133 mmol/L (136-145)
--- NOTE | 2020-02-27 18:49 | NUR ---
SHIFT SUMMARY DANIKA GOT PO OXY X1 THIS SHIFT. CLEANED AND REDRESSED BLE WOUNDS. GOT UP WITH SBA TO BR, HAD BM. STILL FEELS CONSTIPATED, REQUESTING PRN LACTULOSE. USED URINAL APPROPRIATELY, NYSTATIN APPLIED TO GROIN RASH. SLIGHT TEMP THIS MORNING OF 100.2. CALL LIGHT IN REACH, [facility]
--- NOTE | 2020-02-28 07:44 | NUR ---
02/28/20 0620 PT AWAKENED FOR AM MED. STATES HE SLEPT WELL. DRESSINGS INTACT TO BOTH FEET. VITALS STABLE. MEDICATED ONCE THIS SHIFT FOR PAIN IN FEET. VOIDING QS. UNEVENTFUL NIGHT.
--- NOTE | 2020-02-28 12:35 | NUR ---
CHILD SUPPORT AGENT, DARRION JENKINS TOOK A LOOK AT THE REDNESS NOTED ON THE ROSALINDA NEAR THE POWERGLIDE. SHE BELIEVES REDNESS IS NOT RELATED TO PG. ONCE THE DRESSING WAS REMOVED THE REDNESS WAS NOT NEAR THE INSERTION SITE. NOR WAS IT PAINFUL WHEN FLUSHED. FLUSHES GREAT. DRESSING CHANGED AT THIS TIME.
--- NOTE | 2020-02-28 15:52 | NUR ---
Patient is lying in the dark and alert. Patient talks about his depression and his the concerns he has for his future as a homeless person. We explore sources of meaning, dignity and value and I provide companionship and prayer. Patient responds well and shows signs of a slightly elevated mood. I will continue to remain available to patient and family.
--- NOTE | 2020-02-28 18:22 | NUR ---
SHIFT SUMMARY NO ACUTE CHANGES T/O SHIFT, CALM AND COOPERATIVE WITH CARE BUT PREFERRED TO BE LEFT ALONE AND DOOR CLOSED MOST OF THE DAY. A&Ox1, COMPLAINTS OF PAIN ONCE TODAY, PT WAS TREATED PER EMAR WITH MORNING MED PASS. BILATERAL FEET HAVE NECTROTIC TISSUE AND OPEN WOUNDS. DRESSINGS WERE CHANGED TODAY PER ORDERS, PT EXPERIENCED SOME BUT LITTLE PAIN DURING DRESSING CHANGE. PT IS CURRENTLY RESTING IN BED WATCHING TV. CALL LIGHT WITHIN REACH, CALLS APPROPRIATELY.
--- NOTE | 2020-02-28 19:30 | NUR ---
LAYING DOWN IN BED AT ROUNDING. STATES "TORED", VOICED LOSS OF FEELING IN BILAT FEET AND HIS "FINGERTIPS". ALERT AND ORIENTED. CALL LIGHT IN REACH
--- NOTE | 2020-02-29 04:09 | NUR ---
SHIFT SUMMARY ASSUMED CARE OF PT AT 0030. PT IS A/OX4. PT SLEPT DURING THE NIGHT. PT REQUESTED PAIN MEDICATION BUT THEN SLEPT T/O THE NIGHT. CALL LIGHT IN REACH, BED IN LOWEST POSITION.
--- NOTE | 2020-02-29 14:34 | NUR ---
PATIENT IS PLEASANT AND COOPERATIVE WITH STAFF. WOUND CARE/CHANGES TO DRESSINGS PERFORMED TODAY TO BILAT FEET PER ORDERS. PATIENT TOLERATED WITHOUT DISTRESS. NEW PICTURES TAKEN TODAY AND PLACED IN CHART. VITALS STABLE AND WNL. PATIENT CONTINUES ON ABX WITHOUT S/SX OF ADVERSE REACTIONS NOTED OR REPORTED. PATIENT CURRENTLY WORKING WITH THERAPY AT THIS TIME.
--- NOTE | 2020-03-01 04:10 | NUR ---
SHIFT SUMMARY ASSUMED CARE OF PT AT 1900. PT IS A/OX4. HEART SOUNDS REGULAR, LUNG SOUNDS CLEAR. PT STATES NO ACUTE EHANGES BUT HE IS UPSET THAT THEY PODIETRIST DID NOT GET TO SEE HIM YESTERDAY AFTERNOON. PT ASKED FOR PAIN MEDICATIONS ONCE. PT FEET ARE WRAPPED. PT SLEPT T/O THE NIGHT. CALL LIGHT IN REACH, BED IN LOWEST POSITION.
--- NOTE | 2020-03-01 10:51 | NUR ---
PODIATRY CALLED DR PYLE OFFICE TO SEE THIS PT TODAY IF POSSIBLE REGARDING ON THIS PT FOOT.
--- NOTE | 2020-03-01 16:28 | NUR ---
SHIFT SUMMARY PT AOX4; ABLE TO MAKE NEEDS KNOWN. PT WAS SEEN BY DR PYLE THIS AFTERNOON. DRESSING WAS CHANGED 03/01. PT MIGHT HAVE A PROCEDURE NEXT WEDNESDAY PER DR PYLE. PT MEDICATED PER EMAR. NO OTHER ACUTE CHANGES ON THIS SHIFT. BED IS IN THE LOWEST POSITION AND CALL LIGHT WITHIN REACH.
--- NOTE | 2020-03-01 21:18 | NUR ---
ASSUMED CARE. AOX3, COOPERATIVE. PAIN IN FEET. DRESSINGS INTACT BILATERALLY. UNABLE TO ASSESS PULSE. NUMBNESS AND TINGLING TO BILATERAL FINGER TIPS. USES URINAL AT BEDSIDE. DOES NOT GET UP MUCH DUE TO PAIN IN FEET WHEN PUTTING PRESSURE ON THEM. DENIES ANY OTHER ISSUES OR CONCERNS. MEDICATED FOR PAIN WITH PM MEDS. GROIN WASHED AND NEW OINTMENT APPLIED. PLACED ABD PADS IN BETWEEN TO PREVENT SKIN TO SKIN CONTACT. CALL LIGHT IS IN REACH.
--- NOTE | 2020-03-02 06:08 | NUR ---
SHIFT SUMMARY: AOX3, QUIT IN ROOM. PAIN CONTROLLED WITH CURRENT TX. DRS TO BLE REMAINED CDI. USES URINAL AT BEDSIDE, VERY GOOD OUTPUT. VS WNL, SLIGHTLY HYPOTENSIVE IN THE 90'S. NO DIZZINESS NOTED. SLEPT WELL T/O NIGHT OTHER THEN INTERVENTIONS. NO CHANGES TO REPORT. CALL LIGHT REMAINED IN REACH.
--- NOTE | 2020-03-02 19:36 | NUR ---
SHIFT SUMMARYT: NO ACUTE CHANGES TO REPORT THIS SHIFT. PT A&O; CALM AND COOPERATIVE WITH CARE. MEDICATED FOR BILATERAL FOOT PAIN PER EMAR. WOUND CARE THIS SHIFT; PT TOLERATED WELL. PT HOMELESS; AWAITING SAFE D/C PLAN AFTER BILATERAL FOOT CONSULT c POSSIBLE AMPUTATIONS. REPORT GIVEN TO ONCOMING RN.
--- NOTE | 2020-03-03 04:35 | NUR ---
TRACK BROOM OPERATOR SUMMARY PT A&OX4, ABLE TO MAKE NEEDS KNOWN. PLEASANT AND COOPERATIVE TO CARE. PT MEDICATED FOR PAIN IN FEET PER EMAR. WOUND DRESSING TO LEESA FOOT CDI. NO C/O CP, SOB, OR N&V. PT CALM AND RESTED IN BED AT THIS TIME. CALL LIGHT WITHIN REACH
--- NOTE | 2020-03-03 19:21 | NUR ---
SHIFT SUMMARY: NO ACUTE CHANGES TO REPORT THIS SHIFT. PT A&o; calm and cooperative with care. medicated for bilateral foot pain per emar. wound care complete; pt tolerated well. awaiting update on surgical plan for bilateral feet. report given to oncoming rn.
--- NOTE | 2020-03-04 05:01 | NUR ---
TEARER PRESS CLIPPING SUMMARY PT A&OX4, ABLE TO MAKE NEEDS KNOWN. PLEASANT AND COOPERATIVE TO CARE. PT MEDICATED FOR PAIN IN FEET PER EMAR. NO C/O CP, SOB, OR N&V. WOUND DRESSING TO FEET CDI. NO ACUTE CHANGES NOTED TO PATIENT THIS SHIFT. INDEPENDENT IN ROOM. CALM AND RESTED IN BED T/O SHIFT. CALL LIGHT WITHIN REACH.
--- NOTE | 2020-03-04 15:30 | NUR ---
permission to provide care student nurse hailey bauer recieved permission to provide care on 03/04/20
[2020-03-04] MEDS ORDERED: ATOR40TA PO (16:40)
--- NOTE | 2020-03-04 16:54 | NUR ---
SHIFT SUMMARY- PT A/OX4, SBA UP IN ROOM. PT MEDICATED X1 FOR BILAT FEET PAIN. DRESSINGS TO BILAT FEET CHANGED TODAY. PHOTOS IN CHART. PLAN FOR SURGERY POSSIBLY WEDNESDAY. LS CLEAR, ON RA. HRR. PT REPORTS FEELING DEPRESSED, SPOKE WITH DR FUCHS AND NGHIA ADDED. NO OTHER ACUTE CHANGES THIS SHIFT.
--- NOTE | 2020-03-05 06:48 | NUR ---
PT plesant & cooperative continent of bowel & bladder. Uses urinal. Tolerating diet & activity. PT has daily dressing changes to bilat le wounds necrotic toes bilat feet after frostbite. PT has revascularization per DR Jo DUMONT. Pending surgery to remove necrotic toes. DC planning involved with safe dc plan for homeless individual who suffered frostbite with cold exposure. Pleasant & coopertive.
--- NOTE | 2020-03-05 16:50 | NUR ---
SHIFT SUMMARY- PT A/OX4, INDEP UP IN ROOM. PT MEDICATED X1 FOR PAIN TO BLE. LS CLEAR, ON . DRESSINGS TO BILAT FEET CHANGED TODAY. PT AWAITING PODIATRY ON WEDNESDAY. NO OTHER ACUTE CHANGES THIS SHIFT.
--- NOTE | 2020-03-06 04:17 | NUR ---
Homeless adult male who has underlying PVD PAD who has frostbit to bilat le continues cooperative & contient of bowel & bladder. Takes oral pain med at HS & resting quietly. Appetite good. Bilat feet with necrotic toes & has planned amputations planned in near future. DC planning continues for safe placement post amputation of necrotic digits bilat le. Cooperative with medications. Daily dressing changes with silvadine done on day shift. Bilat le dressing clean dry intact.
--- NOTE | 2020-03-06 16:06 | NUR ---
Patient is lying in bed nad resting. Patient easily awakens to the sound of his name. Patient tells me about the amputation possibly scheduled for 03/08/20 and how he is struggling with the thought. We discuss the mourning process and grief of the loss of a limb and we discuss helpful ways to frame his thoughts. I provide grief support, companionship and prayer (as well as get patient a cup of coffee). Eitan responds well and shows signs of being comforted and having an elevated mood. I will continue to remain available to patient and family.
--- NOTE | 2020-03-06 16:48 | NUR ---
ALERT. ORIENTED. SLEEPING MOST OF SHIFT. MEDICATED ONCE FOR PAIN WHICH STAYS AROUND 4(1-10). UNLABORED RESPIRATIONS. DRESSING BLE CHANGED WITH NEW PICS TAKEN. THIS RN SAW PATIENT ON INTIAL ADMIT AND TOES DO LOOK WORSE, BUT FEET LOOK LITTLE BETTER. NOT AWAKENED TO SEE IF NEEDS ANYTHING FOR PAIN. WCTM
--- NOTE | 2020-03-07 03:29 | NUR ---
SHIFT SUMMARY PATIENT HAD NO ACUTE CHANGES OBSERVED. AXOX 3 USING URINAL AT BEDSIDE. TOOK MEDICATION WHOLE WITH WATER. DENIES PAIN, SOB, AND N.V. VSS/AFEBRILE. DRESSING C/D/I. POWERGLIDE ROSALINDA INTACT. COOPERATIVE WITH CARE. CALL LIGHT IN REACH. BED IN LOWEST POSITION. WILL CONTINUE TO MONITOR UNTIL DAY SHIFT NURSE ASSUMES CARE.
--- NOTE | 2020-03-07 13:58 | NUR ---
PT GAVE PERMISSION TO CARE FOR HIM 03/07/2020.
--- NOTE | 2020-03-07 19:21 | NUR ---
SHIFT SUMMARY WOUND CARE COMPLETED TODAY. PT ALSO TOOK A BEDBATH. PT PLANNED TO HAVE SURGERY TOMORROW AT [address] PYLE CALLED TO MAKE SURE PT IS NPO AT MIDNIGHT TONIGHT. BRYANT HELD TONIGHT. NO ACUTE CHANGES IN ASSESSMENT AT THIS TIME. VS REVIEWED. PT MEDICATED FOR PAIN TWICE THIS SHIFT. CURRENTLY RESTING IN BED. WITH CALL LIGHT IN REACH
--- NOTE | 2020-03-08 07:21 | NUR ---
rn night summary pt a/o x4, independent in room. medicated once for pain overnight for bilateral feet pain. pt appears to have slept well overnight. npo since midnight. awaiting toe amputation procedure today. no acute changes. call light within reach.
[2020-03-08 08:12] LABS: Influenza A, PCR Negative (NEGATIVE); Influenza B, PCR Negative (NEGATIVE); Resp Syncytial Virus, PCR Negative (NEGATIVE); SARS-Cov-2 (COVID-19) PCR, MMC Negative (NEGATIVE)
--- NOTE | 2020-03-08 18:26 | NUR ---
PT RETURNED FROM SURGERY. BEEN TOLERATING PO FOOD WELL. PT ALERT AND ORIENTED AND IN NO NOTED DISTRESS. DRESSINGS CDI. WOUNDS TO BE LEFT COVERED WITH NO SOCKS. CALL LIGHT WITHIN REACH.
[2020-03-09 04:34] LABS: BASOPHILS ABSOLUTE AUTO 0.02 K/mm3 (0.00-0.23); BASOPHILS PERCENT AUTO 0 % (0-2); EOSINOPHILS ABSOLUTE AUTO 0.07 K/mm3 (0.00-0.68); EOSINOPHILS PERCENT AUTO 1 % (0-6); Hematocrit 38.9 % (37.0-53.0); Hemoglobin 12.1 g/dL (13.5-17.5); IMMATURE GRAN ABSOLUTE AUTO 0.04 K/mm3 (0.00-0.10); IMMATURE GRAN PERCENT AUTO 0 % (0-1); LYMPHOCYTES ABSOLUTE AUTO 1.92 K/mm3 (0.84-5.20); LYMPHOCYTES PERCENT AUTO 15 % (21-46); MONOCYTES ABSOLUTE AUTO 1.09 K/mm3 (0.16-1.47); MONOCYTES PERCENT AUTO 9 % (4-13); Mean Corpuscular HGB 25.1 pg (26.0-34.0); Mean Corpuscular HGB Conc 31.1 g/dL (31.5-36.5); Mean Corpuscular Volume 81 fL (80-100); Mean Platelet Volume 9.6 fL (9.1-12.4); NEUTROPHILS PERCENT AUTO 75 % (41-73); Platelet Count 255 K/mm3 (150-400); RDW Coefficient Variation 18.6 % (11.7-14.2); RDW Standard Deviation 54.9 fL (35.1-46.3); Red Blood Cell Count 4.83 M/mm3 (4.30-5.90); White Blood Cell Count 12.64 K/mm3 (4.00-11.30)
[2020-03-09 04:56] LABS: Anion Gap 6 mmol/L (6-16); Blood Urea Nitrogen 31 mg/dL (8-24); Bun/Creatinine Ratio 38.1 (12.0-20.0); CO2, Blood 32 mmol/L (21-32); Calcium, Blood 9.9 mg/dL (8.5-10.1); Chloride, Blood 99 mmol/L (98-108); Creatinine, Blood 0.81 mg/dL (0.60-1.20); Glomerular Filtration Rate >60 (60-); Glucose, Blood 94 mg/dL (70-99); Sodium, Blood 137 mmol/L (136-145)
--- NOTE | 2020-03-09 07:39 | NUR ---
SHIFT SUMMARY: A&OX4, VSS, TOLERATING REGULAR DIET WELL. PAIN IN BILAT FEET AT SURGICAL SITES 5-07/18. PRN OXYCODONE AND TYLENOL ARE GIVEN WITH GOOD EFFECT. NWB BOTH FEET, USING URINAL TO VOID. DSD TO BILAT FEET ARE CD&I.
--- NOTE | 2020-03-09 17:28 | NUR ---
PT IS A/OX4, PLEASANT AND COOPERATIVE, THE PT APPEARS TO BE BREATHING EASILY ON RA AT THIS TIME, THE PT WORKED WITH THE PHYSICAL THERAPIST TODAY AND LEARNED HOW TO TRANSFER TO THE WHEELCHAIR, BSC AND BATHROOM WITH NON- WEIGHT BEARING ON BLE, PT SURGICAL WOUND DRESSINGS APPEAR CDI AT THIS TIME, PT WAS MEDICATED FOR PAIN PRN T/O THE DAY, CALL LIGHT IN REACH WILL CONTINUE TO MONITOR AND ASSESS FOR CHANGES
--- NOTE | 2020-03-10 07:19 | NUR ---
SHIFT SUMMARY: PATIENT IS A&OX3, VSS, VOIDING IN URINAL CLEAR YELLOW URINE. REPORTING PAIN 3-6/10 BILAT FEET. TYLENOL AND OXYCODONE ARE PROVIDING EFFECTIVE PAIN CONTROL. MAINTAIN NWB STATUS, DRSG'S ON BILAT FEET ARE CD&I.
--- NOTE | 2020-03-10 19:19 | NUR ---
PT IS A/OX3, PLEASANT AND COOPERATIVE, IS NON WEIGHT BEARING STATUS ON BLE'S, THE PT IS ABLE TO TRANSFER TO THE WHEELCHAIR WITH MINIMAL ASSISTANCE AND TO THE TOILET, THE PT APPEARS TO BE BREATHING EASILY ON RA AT THIS TIME, THE PT WAS MEDICATED FOR PAIN T/O THE DAY, PT LE DRESSINGS LOOK CDI AT THIS TIME, CALL LIGHT IN REACH
--- NOTE | 2020-03-11 04:15 | NUR ---
SHIFT SUMMARY NO ACUTE CHANGES TO REPORT THIS SHIFT. PT HAS RESTED MOST OF THE NIGHT. HE HAS DENIED PAIN OR NEEDS. USES URINAL INDEPENDENTLY AT BEDSIDE. NON WEIGHT BEARING D/T S/P TOE AMPUTATIONS. DRESSINGS INTACT. PT HAS STAYED IN BED T/O SHIFT. ASSESSMENT REMAINS UNCHANGED. BED IN LOWEST POSITION, CALL LIGHT WITHIN REACH.
--- NOTE | 2020-03-11 20:14 | NUR ---
SHIFT SUMMARY PT WOKE FOR SHIFT REPORT THIS AM. RESTING QUIETLY. NO C/O. PT WAITING PLACEMENT AFTER TOE AMPUTATIONS ON BL FEET. PT NONWT BEARING, USING SLIDER TO TX TO W/C AND GO TO BTHRM. PT ASSISTED TO BTHRM AT START OF SHIFT HAVING BM, BUT CONSTIPATED. PT REQUESTED BOWEL CARE SEVERAL TIMES TODAY. BOWEL CARE GIVEN PT REQUESTED. USES URINAL AT BS NEEDED. DR RODRIGUEZ IN TO SEE PT TODAY. DRSG'S TO BL FEET CHANGED BY DR RODRIGUEZ. SX SITES APPEAR TO BE WNL'S AND HEALING WELL. PT MEDICATED FOR C/O PAIN PER EMAR. PAIN MEDICATION REDUCED TODAY. TYLENOL GIVEN PER EMAR WELL. PT HAS BEEN PLEASANT AND CO-OP. NO C/O. CALL LT IN REACH.
--- NOTE | 2020-03-12 07:45 | NUR ---
SHIFT SUMMARY NO ACUTE CHANGES THIS SHIFT. AOX4. VSS. REPORTED 5/10 PAIN IN BILAT FEET, MEDICATED 1X c 5MG OXYCODONE-PT RESTED COMFORTABLY & DENIED PAIN THIS AM. TOES AMPUTATED OFF BLE FOR FROSTBITE ON 03/08/20. BANDAGES WERE CHANGED 03/11/20 & ARE C/D/I. CALL LIGHT IN REACH & PT ABLE TO MAKE NEEDS KNOWN.
--- NOTE | 2020-03-12 15:14 | NUR ---
Patient is sitting up in bed and alert. Patient tells me about the surgery he had 03/08/20 and how much was removed from his foot. We talk about the mental morales prior to surgery preparing for the amputation and how draining the wait was on him (close to a month). We talk about the grief of the loss now but also the new focus on recovery and what might lie ahead. I provide therapeutic listening, grief support and prayer. Patient responds well and shows signs of increased gratitude. I will continue to help patient in dealing with the emotional/spiritual aspects of amputation.
--- NOTE | 2020-03-12 18:40 | NUR ---
SHIFT SUMMARY PT RESTING QUIETLY AT START OF SHIFT. A&O, PLEASANT AND CO-OP. CONTINUES TO HEAL FROM BL TOE AMPUTATIONS. BRAVO C/D/I. MEDICATED X1 FOR PAIN TODAY. CONTINUES TO BE MORE MOBIL IN SLIDE TX'S TO W/C. PT ABLE TO BE HEEL WT-BEARING TODAY. WORKED WITH PT/OT. SEEN BY DR PITTS TODAY. PT WAITING FOR PLACEMENT. CALL LT IN REACH. ABLE TO MAKE NEEDS KNOWN.
--- NOTE | 2020-03-13 07:53 | NUR ---
SHIFT SUMMARY NO ACUTE CHANGES THIS SHIFT. AOX4. VSS. DENIED NEED FOR PAIN MEDICATION. TOES AMPUTATED 03/08/20, BANDAGES CHANGED 03/11/20 ON BLE & ARE C/D/I. AWAITING PLACEMENT. CALL LIGHT IN REACH & PT ABLE TO MAKE NEEDS KNOWN.
--- NOTE | 2020-03-13 18:12 | NUR ---
PT IS A/OX3, PLEASANT AND COOPERATIVE, THE PT IS UP WITH MINIMAL ASSIST TO THE WHEELCHAIR, THE PT IS ABLE TO USE THE BATHROOM AND MOVE ABOUT HIS ROOM USEING THE WHEELCHAIR, PT APPEARS TO BE BREATHING EASILY ON RA AT THIS TIME, THE PT WAS MEDICATED FOR PAIN X1 SO FAR TODAY, PTS WOUND DRESSING HAS A MINIMUM AMOUNT OF DRAINAGE NOTICED, CALL LIGHT IN REACH, WILL CONTINUE TO MONITOR AND ASSESS FOR CHANGES
--- NOTE | 2020-03-14 05:55 | NUR ---
SHIFT SUMMARY- PT. A&OX4, S/P LEESA TRANSMETATARSAL AMPUTATION. DENIED PAIN OR DISCOMFORT T/O THE NIGHT. ASLEEP MOST OF THE NIGHT, NO APPARENT DISTRESS NOTED. PT. IS ABLE TO TRANSFER INDEPENDENTLY ONTO IN THE ROOM, USES URINAL AT BEDSIDE. PT. AWAITING ON PLACEMENT TO LIVING FACILITY. DENIED ANY NEEDS DURING THE NIGHT, VSS. CALL LIGHT WITHIN REACH AND SIDE RAILS UPX2. WILL CONT TO MONITOR.
--- NOTE | 2020-03-14 15:33 | NUR ---
Patient is in his w/c outside my office smoking, so I go out to remind patient that this is a smoke free campus. Patient reluctantly puts his cigarette out after he had smoked it almost to the butt. I tell patient that it is surprising to me that he would all of a sudden start smoking. He says that he saw a something on TV that triggered it. I explain that he can have a patch prescribed for him or he can get lozenges and that a continual diffiance of our policy could result in a DC from the hospital. I then talk with patient about his recovery and other surface topics. He then talks about going off campus (to the [employer] lot) to smoke and make phone calls. I try to discourage this for safety reasons. Patient wheels off away from the enterance of the hospital.
--- NOTE | 2020-03-14 16:34 | NUR ---
PT IS A/OX3, PLEASANT AND COOPERATIVE, THE PT IS UP TO THE WHEELCAIR WITH MINIMAL ASSIST, THE PT APPEARS TO BE BREATHING EASILY ON RA AT THIS TIME, THE PT'S LE DRESSING'S APPEAR TO BE CDI AT THIS TIME, PT REPORTED NO SUKHWINDER FOR PAIN MEDICATION SO FAR TODAY, TODAY THE PT WAS UP IN THE WHEELCHAIR, STATED THAT HE WANTED TO GO OUTSIDE AND SMOKE, THE PT AT THAT TIME WAS TOLD THAT HE COULD NOT SMOKE ON THE HOSPITAL GROUNDS, THE PT STATED THAT HE WANTED TO GO OUTSIDE AND WAS ALLOWED BY THIS NURSE, NOT REALIZING THE CURRENT HOSPITAL POLICY, WHEN THE PT RETURNED HE WAS NOTIFIED OF THE POLICY TO REMAIN ON THE MEDICAL FLOOR UNIT AT ALL TIMES AND NOT GOT OUTSIDE, THE PT WAS AGREEABLE, CALL LIGHT IN REACH, WILL CONTINUE TO MONITOR AND ASSESS FOR CHANGES
--- NOTE | 2020-03-15 06:37 | NUR ---
SHIFT SUMMARY- NO ACUTE EVENTS OVERNIGHT. PT. ASLEEP MOST OF THE NIGHT, NO APPARENT DISTRESS NOTED. THIS AM C/O PAIN 4 TO LEESA FEET, MEDICATED PER EMAR. APPEARED TO HAVE GOOD RELIEF, SLEEPING COMFORTABLY AT THIS TIME. VSS. CALL LIGHT WITHIN REACH AND SIDE RAILS UPX2. WILL CONT TO MONITOR.
[2020-03-15 15:59] LABS: U Amphetamine Screen Not Detected; U Barbituate Screen Not Detected; U Benzodiazapine Screen Not Detected; U Cannabinoids Screen Not Detected; U Cocaine Screen Not Detected; U Methadone Screen Not Detected; U Methamphetamine Screen Not Detected; U Opiates Screen Not Detected; U Phencyclidine Screen Not Detected
[2020-03-15 16:00] LABS: U Buprenorphine Screen Not Detected; U Oxycodone Screen DETECTED; U Propoxyphene Screen Not Detected
--- NOTE | 2020-03-15 19:11 | NUR ---
a+o, no iv, rm air, awaiting placement, feet dressings cdi, cooperative with staff, did not ask for pain medication until bsr when he said he thought he may be could use some pain medication
--- NOTE | 2020-03-16 05:52 | NUR ---
SHIFT SUMMARY PATIENT ALERT AND ORIENTED. WAS MEDICATED PER EMAR FOR PAIN. NO COMPLAINTS OF SHORTNESS OF BREATH OR CHEST PAIN. PATIENT SLEPT FAIRLY WELL OVERNIGHT. BED IN LOWEST POSITION WITH WHEELS LOCKED AND ALARM ON. CALL LIGHT WITHIN REACH. REPORT GIVEN TO ONCOMING RN.
--- NOTE | 2020-03-16 19:26 | NUR ---
a+o, bsr shared with noc nurse and pt who declined pain medication, feet dressings were cdi, calllight in reach, rm air no IV, no acute changes noted during shift
--- NOTE | 2020-03-17 06:04 | NUR ---
SHIFT SUMMARY PATIENT ALERT AND ORIENTED. MEDICATED ONCE FOR PAIN OVERNIGHT. NO COMPLAINTS OF CHEST PAIN OR SHORTNESS OF BREATH. PT WAS ABLE TO SLEEP WELL OVERNIGHT. BED IN LOWEST POSITION WITH WHEELS LOCKED. CALL LIGHT WITHIN REACH. REPORT GIVEN TO ONCOMING RN.
--- NOTE | 2020-03-17 19:20 | NUR ---
a+o, no iv, rm air, no acute change in condition, stayed in rm and was cooperative with staff, call light in reach, dressing cdi
--- NOTE | 2020-03-18 06:16 | NUR ---
SHIFT SUMMARY PATIENT ALERT AND ORIENTED. WAS MEDICATED PER EMAR FOR PAIN. NO ACUTE CHANGES OVERNIGHT. WAS ABLE TO SLEEP WELL. BED IN LOWEST POSITION WITH WHEELS LOCKED. CALL LIGHT WTHIN REACH. REPORT GIVEN TO ONCOMING RN.
--- NOTE | 2020-03-18 16:21 | NUR ---
Patient tells me about his struggles to connect with [employer] or any other agency to get the help he needs to move forward with his healing process or life. Patient then talks about the many times he has lost everything in life because of alcohol and had to start over from scratch. Patient emphasizes that he can overcome much adversity but now to try to restart with a disability is a bit overwhelming. I provide therapeutic listening, companionship and prayer. Patient responds well and shows signs of reduced stress. I will continue to remain available to patient and family
--- NOTE | 2020-03-18 17:16 | NUR ---
SHIFT SUMMARY PATIENT ALERT AND ORIENTED THROUGHOUT THIS SHIFT. PATIENT SITTING UP IN BED THROUGHOUT THIS SHIFT. PATIENT SELF-TRANSFERS TO BEDSIDE COMODE. PATIENT DENIES NEEDS THROUGHOUT THIS SHIFT. WOUND DRESSINGS REMAIN CDI. PATIENT DENIES PAIN THIS SHIFT. PATIENT CURRENTLY SITTING UP IN BED WATCHING TELEVISION.
--- NOTE | 2020-03-19 04:22 | NUR ---
SHIFT SUMMARY NO ACUTE CHANGES THIS SHIFT, MEDICATED AT BEDTIME FOR PAIN 05/18, SLEEPING ON REASSESSMENT & SLEPT T/O THE NIGHT, CALL LIGHT IN REACH, WILL CONT TO MONITOR UNTIL REPORT GIVEN TO DAY RN.
--- NOTE | 2020-03-19 17:15 | NUR ---
SHIFT SUMMARY PATIENT ALERT AND ORIENTED THIS SHIFT. PATIENT COOPERATIVE WITH CARE. NO ACUTE CHANGES THIS SHIFT. PATIENT SITTING UP IN BED THROUGHOUT THIS SHIFTS. PATIENT DENIES PAIN, N/V THIS SHIFT. PATIENT DENIES NEEDS THIS SHIFT. PATIENT CURRENTLY UP IN BED WATCHING TELEVISION.
--- NOTE | 2020-03-20 03:42 | NUR ---
Valdez had minimal complaints of discomfort overnight. He did state he was having a discomfort he couldn't explain in both his ankles. one oxycodone given with evening medications "did the trick" and he fell right to sleep. Patient did wake and use the urinal multiple times overnight without assistance of staff. A&OX4, pleasant and cooperative with care. Dressings on both feet are clean dry and intact.
--- NOTE | 2020-03-20 19:33 | NUR ---
SHIFT SUMMARY- BEDSIDE REPORT COMPLETED WITH NIGHT RN. PT AS HAD NO ACUTE CHANGE T/O THE DAY TODAY. CALLED DR PYLE THE DRESSINGS HAVE NOT BEEN CHANGED SINCE THE . PER DR PYLE THAT IS HIS PREFERED METHOD. DR PYLE WILL COME IN TO SEE THE PT TOMORROW AND CHANGE THE DRESSINGS. PT IS AWARE. PT IN BED CALL LIGHT IN REACH NO S&S OF DISTRESS, PT DENIED THE NEED FOR PAIN MEDICATION T/O THE DAY STATED HE TAKES IT AT BEDTIME USUALLY.
--- NOTE | 2020-03-21 03:57 | NUR ---
SHIFT SUMMARY: PT IS ALERT AND ORIENTED. PT IS CALM AND COOPERATIVE WITH CARE. PT CALLS APPROPRIATELY. PT USES THE URINAL IN BED INDEPENDENTLY. UP TO THE BATHROOM WITH WHEELCHAIR. PT REPORTS PAIN IN BLE NEAR BEDTIME, GAVE PRN OXYCODONE. PT DENIES NAUSEA, VOMITING, AND SOB. PT SLEPT MUCH OF THE NIGHT WHEN NOT DISTURBED. NO ACUTE CHANGES OR COMPLICATIONS THIS SHIFT. BED IN LOW POSITION, CALL LIGHT WITHIN REACH. WILL CONTINUE TO MONITOR.
--- NOTE | 2020-03-21 15:27 | NUR ---
Patient tells me about some positive movement on possible housing options, about his past mistakes and they create problems with housing and many other areas. Patient talks about the hopes of carving out a simple life and having trustworthy friends around him. I listen empathically, hear confession, and provide pastoral head counselor and prayer. Patient responds well and shows signs of catharsis, I will continue to remain available to patient and family.
--- NOTE | 2020-03-21 16:57 | NUR ---
SHIFT SUMMARY- PT HAS HAD NO ACUTE CHANGES T/O THE SHIFT. DR PYLE CAME IN AND CHANGED THE DRESSINGS, PICTURES IN THE CHART, SUTURES REMOVED. PER DR PYLE PT OK TO BE WB TOLLERATED WITH FWW STARTING TOMORROW. ALSO DRESSINGS CAN BE CHANGED AFTER THE PT GETS IN THE SHOWER TOMORROW. WILL HAVE THE PT FOLLOW UP WITH HIM IN HIS OFFICE IN 1 WEEK. PHYSICAL THERAPY AWARE OF THE NEW WEIGHT BEARING RESTRICTIONS AND PLANS TO WORK WITH THE PT TOMORROW. WILL PASS ALL ON TO NIGHT RN IN BEDSIDE REPORT.
--- NOTE | 2020-03-22 05:21 | NUR ---
FOOD AND BEVERAGE OUTLETS MANAGER SUMMARY PT A/O X4, GETS UP IN ROOM ON WC INDEPENDENTLY. PT IS BILATERAL NON-WEIGHT BARING STATUS. MEDICATED FOR PAIN ONCE OVERNIGHT. ROOM AIR, DENIES SOB. DRESSING ON BILATERAL FEET C.D.I. NO ACUTE CHANGES. CALL LIGHT WITHIN REACH.
--- NOTE | 2020-03-22 11:34 | NUR ---
T/C TO DR PYLE REQUESTING ORDERS FOR PT TO START CAUTIOUS WEIGHT BEARING PER HIS PROGRESS NOTE FROM YESTERDAY. VOICE MAIL MESSAGE LEFT, WAITING RETURN CALL
--- NOTE | 2020-03-22 17:44 | NUR ---
DRESSINGS REMOVED FROM FEET TODAY, PT SHOWERED, SOCKS PLACED ON FEET. NO C/O PAIN THIS SHIFT. DR PYLE PLACED PT EVAL/TX ORDER TO HELP WITH AMBULATION. NO ACUTE CHANGES THIS SHIFT, WILL CONTINUE TO MONITOR AND REPORT TO ONCOMING RN
--- NOTE | 2020-03-23 03:39 | NUR ---
03/22/20 2200 PT LYING IN BED, EYES CLOSED, APPEARS TO BE RESTING. BREATHING IS EVEN, UNLABORED. NO APPARENT SIGNS OF DISTRESS. CALL LIGHT IS IN REACH.
--- NOTE | 2020-03-23 03:39 | NUR ---
0000 PT LYING IN BED, EYES CLOSED, APPEARS TO BE RESTING. BREATHING IS EVEN, UNLABORED. NO APPARENT SIGNS OF DISTRESS. CALL LIGHT IS IN REACH.
--- NOTE | 2020-03-23 03:40 | NUR ---
03/22/202118 PT REQUESTED AND RECIEVED PAIN MEDICATIONS. WILL EVAL FOR EFFECT. NO OTHER APPARENT SIGNS OF DISTRESS. CALL LIGHT IS IN REACH.
--- NOTE | 2020-03-23 03:40 | NUR ---
0200 PT LYING IN BED, EYES CLOSED, APPEARS TO BE RESTING. BREATHING IS EVEN, UNLABORED. NO APPARENT SIGNS OF DISTRESS. CALL LIGHT IS IN REACH.
--- NOTE | 2020-03-23 03:43 | NUR ---
PT LYING IN BED, EYES CLOSED, APPEARS TO BE RESTING. WAKES EASILY TO VERBAL STIMULI. NO APPARENT SIGNS OF DISTRESS. CALL LIGHT IS IN REACH.
--- NOTE | 2020-03-23 03:44 | NUR ---
PT IS AAO X 4, ON RA. REPORTED PAIN IN FEET, GOT ROXICODONE WITH TYLENOL X 1. PT HAD BILAT AMP OF TOES ON 03/08/20, AT THIS TIME THE DRESSINGS ARE NO LONGER ON HIS FEET, THEY ARE OPEN TO AIR WITH SOCKS COVERING THEM.
--- NOTE | 2020-03-23 06:23 | NUR ---
PT LYING IN BED, EYES CLOSED, APPEARS TO BE RESTING. BREATHING IS EVEN, UNLABORED. NO APPARENT SIGNS OF DISTRESS. CALL LIGHT IS IN REACH. NO OTHER CHANGES THIS SHIFT.
--- NOTE | 2020-03-23 18:04 | NUR ---
SHIFT SUMMARY PT AxOx4. PLEASANT AND COOPERATIVE WITH CARE. WORKING WITH PHYSICAL THERAPY TO BEGIN WEIGHT BEARING ON LOWER EXTREMITIES POST BLE TOES (ALL) AMPUTATION 03/08/20. PT IS TRANSFERING TO INDEPENDENTLY TO USE BATHROOM. DENIES PAIN. APPETITE GOOD. CURRENT PLAN IS PENDING SAFE DISCHARGE D/T LIMITED MOBILITY. PT NORMALLY LIVES AT [facility]. CASE MANAGEMENT WORKING WITH PT. VITALS REVIEWED. PT IS CURRENTLY RESTING IN BED WITH CALL LIGHT IN REACH. DENIES ANY NEEDS AT THIS TIME.
--- NOTE | 2020-03-24 06:20 | NUR ---
SHIFT SUMMARY: "DANIKA" IS A&OX4, INDEPENDENT TO THE WHEELCHAIR WHICH HE USES TO MOVE ABOUT THE ROOM. VSS, NO ACUTE EVENTS OVERNIGHT. HE IS TOLERATING PO INTAKE WELL. INCISIONS OPEN TO AIR, SCABS INTACT. HE DENIES PAIN, BUT DOES COMPLAIN OF NUMBNESS/TINGLING. HE IS ABLE TO MAKE HIS NEEDS KNOWN AND USES THE CALL LIGHT APPROPRIATELY. HE IS USING THE URINAL WITHOUT DIFFICULTY. HE IS LYING IN BED WTIH THE CALL LIGHT IN REACH. WILL REPORT TO DAY SHIFT RN.
--- NOTE | 2020-03-24 19:18 | NUR ---
SHIFT SUMMARY DANIKA GOT TYLENOL FOR MILD PAIN THIS SHIFT. 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 INDEP TO WC. GOOD APPETITE, RESTING COMFORTABLY IN ROOM. CALL LIGHT IN REACH, REPORT GIVEN TO NIGHT NURSE
--- NOTE | 2020-03-25 06:17 | NUR ---
SHIFT SUMMARY: VSS. 02 92-93% ON RA. NO COUGHING. DENIES SOB. FINE CRACKLES AUSCULTATED TO B LUNG BASES. MEDICATED FOR B FEET AND ANKLE PAIN AT HS. PT APPEARED TO HAVE SLEPT THROUGH MOST OF THE NIGHT. 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 PT REPORTS ONGOING N/T TO BLE. NO ACUTE OVERNIGHT CHANGES. WCTM.
--- NOTE | 2020-03-25 19:16 | NUR ---
SHIFT SUMMARY PT A/O X4; PLEASANT AND COOPERATIVE WITH CARE. NO ACUTE CHANGES THIS SHIFT. POST OP FOR BILAT TOE AMPUTATION. INCISION SITES ARE SCABBED OVER AND CDI. PT IS ABLE TO GET UP WITH A WHEEL CHAIR AND A WALKER ON HIS OWN. HOWEVER, REQUIRES SUPERVISION WHEN AMBULATING IN THE [place]. RASH ON GROIN AND MEDICATED X1 FOR PAIN. VSS.
--- NOTE | 2020-03-26 15:58 | NUR ---
Patient tells me about the stitches being removed and badages being changed and that he has been up and putting weight on his feet. He says that his legs are weak but is confidence he will regain strength and mobility. Patient talks about his concerns to be able to get a wheelchair when he will DC, his concerns about housing given his mobility issues and his concerns about lack of finances once he tries to actually make a go at life. I write down his concerns on the white board in his rm so he can remember to ask the right people about these issues. I provide therapeutic listening, companionship and prayer. Patient responds well and shows signs being encouraged about a healthier lifestyle. I will continue to remain available to patient.
--- NOTE | 2020-03-26 18:51 | NUR ---
SHIFT SUMMARY PT IS A&OX4. ABLE TO MAKE NEEDS KNONW. PT DENIES P/N/V DURING SHFIT. THE WOUND ON PT FOOD IS OPEN TO AIR WITH SOCKS ON. WOUNDS CLEANED DURING SHFIT. PT DECLINED SHOWER THIS SHIFT. PT WALKED IN THE [place] WITH PHYSICAL THERAPHY AND IS INDEPENDENT IN ROOM. PT CURENLTY WATCHING TV. CALL [employer] W/IN REACH.
--- NOTE | 2020-03-26 20:12 | NUR ---
late entry for 03/26/2020 0700. 64 year old MAle PT with bilat frostbite injury sustained from sleeping outside in cold weather continues to make good progress after bilat toes amputated for nonhealing. Bilat feet have dried scab good use of bilat feet with no s/sx of injury from weightbearing. Cooperative & indep in room. Good appetite & fluid intake. Continent of bowel & bladder. Pain well controlled on PRN oxycodone 5 & tylenol at HS. Cooperative with meds & therapies. DC planning for safe DC continues.
--- NOTE | 2020-03-27 04:28 | NUR ---
64 year old MAle with hx of homelessness & frostbite bilat toes who had all toes amputated due nonresolution for necrotic tissue after revasculation continues pleasant quiet & cooperative. He did decline to ambulate in halls tonight as requested by PT said will begin in AM. Continues to have good pain control with 1 oxycodone 5 mg tab with tylenol at HS.
--- NOTE | 2020-03-27 14:40 | NUR ---
CALLED DR PYLE ON HIS CELL PHONE AT 1440. LET A MESSAGE ASKING HIM TO RETURN THE CALL. PER PT REQUESTING AN ALTERNATIVE TO THE POST-OP SHOE FROM [employer] FOR THE PATIENT, THE SHOES WERE VERY SLIPPERY WHEN PATIENT TRIED THEM.
--- NOTE | 2020-03-27 14:49 | NUR ---
DR PYLE RETURNED MY CALL AT 1445. HE SAID THE ONLY ALTERNATIVES ARE EITHER CAM-WALKER BOOTS, WHICH HE IS UNSURE WE CARRY AT THE HOSPITAL, OR JUST REGULAR TENNIS SHOES. I CALLED DOWN TO [employer] AND THEY ARE CHECKING TO SEE IF WE CARRY THE CAM-WALKER BOOTS. DR PYLE SAID TO HAVE PT TO EVALUATE WHICH WORK BETTER FOR THE PATIENT TO AMBULATE SAFELY.
--- NOTE | 2020-03-27 15:00 | NUR ---
PER [employer] WE DO NOT CARRY THE CAM-WALKER BOOTS. I DID SPEAK WITH WOODROW OLIVEROS TO DISCUSS THE CONVERSATION I HAD WITH DR PYLE REGARDING THE PATIENT. THE PATIENT DOES NOT HAVE HIS OWN SHOES APPARENTLY. WOODROW TO SEE ABOUT THE POSSIBILITY OF THE HOSPITAL GETTING THE PATIENT SOME SHOES IN ORDER TO BE ABLE TO DISCHARGE HIM.
--- NOTE | 2020-03-27 15:02 | NUR ---
VITALS REMAIN STABLE. PATIENT IS PLEASANT AND COOPERATIVE WITH STAFF. NO ACUTE CHANGES NOTED OR REPORTED AT THIS TIME. PATIENT ABLE TO AMBULATE WITH FWW, HOWEVER NEEDS SOME SHOES TO DISCHARGE. PATIENT CURRENTLY IN ROOM; CALL LIGHT WITHIN REACH.
--- NOTE | 2020-03-27 16:52 | NUR ---
Brief intervention to assist in obtaining shoes and socks for pt to contribute to safe d/c and protection of pt's feet after case conferencing with PT and Pt advocate, who was able to provide a pair of shoes that worked for pt and socks. Wool socks to be provided by staff if pt still here tomorrow, per PT recommendation to keep pt's feet warm, prevent further hawley bite and add to his comofort once he is d/c'd.
--- NOTE | 2020-03-28 05:25 | NUR ---
SHIFT SUMMARY: PATIENT IS A&OX4, CONTINUES TO REPORT PAIN, GREATER IN THE LEFT FOOT 4-5/10. TYLENOL AND OXYCODONE ARE GIVEN TOGETHER TO PROVIDE GOOD PAIN RELIEF. VSS, TOLERATING DIET WELL. USING URINAL INDEPENDANTLY.
[2020-03-28] MEDS ORDERED: ACET500 PO (11:00)
[2020-03-28] MEDS ORDERED: CITA20 PO (11:00)
[2020-03-28] MEDS ORDERED: PLAVIX75 MG PO (11:00)
[2020-03-28] MEDS ORDERED: MIRT30ST PO (11:00)
[2020-03-28] MEDS ORDERED: PANT40 PO (11:01)
[2020-03-28] MEDS ORDERED: TAMS.4ER PO (11:01)
--- NOTE | 2020-03-28 15:27 | NUR ---
PT DISCHARGED THE PT VERBALIZED UNDERSTANDING OF THE DC INSTRUCTIONS, THE PTS PRESCRIPTIONS WERE FAXED TO [facility] REQUESTED, PT S BELONGINGS RELEASED TO THE PT, THE PT APPEARED TO BE BREATHING EASILY ON RA AT THE TIME OF DC, THE PT WAS TRANSFERED VIA WHEELCHAIR TO THE FRONT ENTRY TO CATCH A RIDE WITH THE TAXI, PT WAS A/OX3 AT THE TIME OF DC
== END 2020-03-28 15:15 | disposition home or self-care (01) | DRG 854 ==
LOC: ER 05:25 → PCU 09:01 → MEDS 09:01 → PCU 02-10 14:59 → MEDS 02-13 02:10 → PCU 02-15 17:30 → MEDS 02-16 15:32
PROVIDERS: Emergency Medicine; Internal Medicine; Pharmacist; ADMIT Internal Medicine
PROC: B41D1ZZ Fluoroscopy of Aorta and Bilateral Lower Extremity Arteries using Low Osmolar Contrast (ICD-10-PCS; principal; 2020-02-10)
PROC: 047P3ZZ Dilation of Right Anterior Tibial Artery, Percutaneous Approach (ICD-10-PCS; 2020-02-10)
PROC: 047R3ZZ Dilation of Right Posterior Tibial Artery, Percutaneous Approach (ICD-10-PCS; 2020-02-10)
PROC: 047K3ZZ Dilation of Right Femoral Artery, Percutaneous Approach (ICD-10-PCS; 2020-02-10)
PROC: 047L3Z1 Dilation of Left Femoral Artery using Drug-Coated Balloon, Percutaneous Approach (ICD-10-PCS; 2020-02-15)
PROC: 047U3ZZ Dilation of Left Peroneal Artery, Percutaneous Approach (ICD-10-PCS; 2020-02-15)
PROC: B41G1ZZ Fluoroscopy of Left Lower Extremity Arteries using Low Osmolar Contrast (ICD-10-PCS; 2020-02-15)
PROC: B41C1ZZ Fluoroscopy of Pelvic Arteries using Low Osmolar Contrast (ICD-10-PCS; 2020-02-15)
PROC: B41F1ZZ Fluoroscopy of Right Lower Extremity Arteries using Low Osmolar Contrast (ICD-10-PCS; 2020-02-15)
PROC: 0Y6N0Z9 Detachment at Left Foot, Partial 1st Ray, Open Approach (ICD-10-PCS; 2020-03-08)
PROC: 0Y6N0ZB Detachment at Left Foot, Partial 2nd Ray, Open Approach (ICD-10-PCS; 2020-03-08)
PROC: 0Y6N0ZC Detachment at Left Foot, Partial 3rd Ray, Open Approach (ICD-10-PCS; 2020-03-08)
PROC: 0Y6N0ZD Detachment at Left Foot, Partial 4th Ray, Open Approach (ICD-10-PCS; 2020-03-08)
PROC: 0Y6N0ZF Detachment at Left Foot, Partial 5th Ray, Open Approach (ICD-10-PCS; 2020-03-08)
PROC: 0Y6M0Z9 Detachment at Right Foot, Partial 1st Ray, Open Approach (ICD-10-PCS; 2020-03-08)
PROC: 0Y6M0ZB Detachment at Right Foot, Partial 2nd Ray, Open Approach (ICD-10-PCS; 2020-03-08)
PROC: 0Y6M0ZC Detachment at Right Foot, Partial 3rd Ray, Open Approach (ICD-10-PCS; 2020-03-08)
PROC: 0Y6M0ZD Detachment at Right Foot, Partial 4th Ray, Open Approach (ICD-10-PCS; 2020-03-08)
PROC: 0Y6M0ZF Detachment at Right Foot, Partial 5th Ray, Open Approach (ICD-10-PCS; 2020-03-08)
DX: A41.9 Sepsis, unspecified organism (principal); T33.821A Superficial frostbite of right foot, initial encounter; T33.822A Superficial frostbite of left foot, initial encounter; I96 Gangrene, not elsewhere classified; Z59.0 Homelessness; J44.9 Chronic obstructive pulmonary disease, unspecified; F17.210 Nicotine dependence, cigarettes, uncomplicated; F10.10 Alcohol abuse, uncomplicated; F32.9 Major depressive disorder, single episode, unspecified; G62.9 Polyneuropathy, unspecified; K70.10 Alcoholic hepatitis without ascites; Z20.822 Contact with and (suspected) exposure to COVID-19; Y92.9 Unspecified place or not applicable; I70.203 Unspecified atherosclerosis of native arteries of extremities, bilateral legs
CPT/HCPCS: 0241U; 36415; 37224; 37228; 37232; 75625; 75716; 75774; 80048; 80053; 80061; 80202; 81001; 82565; 82728; 83540; 83550; 83605; 83735; 85025; 85027; 85610; 85730; 87040; 87086; 88307; 93005; 93010; 93925; 94640; 94760; 96374; 96375; 97110; 97116; 97116-CQ; 97162; 97164; 97165; 97168; 97530; 97535; 99152; 99153; 99285-25; A9270; C1725; C1751; C1760; C1769; C1887; C1894; C2623; G0480; J0295; J0690; J0692; J0696; J1100; J1644; J1650; J1885; J2250; J2405; J2916; J3010; J3370; J3411; J3475; J7030; J7040; J7042; J7050; J7120; Q9967

== ENCOUNTER 2020-04-18 16:14 | Emergency (ER) | payer OTHER ==
[~2020-04-18] VITALS: Ht 172.7 cm; Wt 65.8 kg
[~2020-04-18 16:14] MED LIST changes: +ACET500 PO; +MIRT30ST PO; +PLAVIX75 MG PO; +TAMS.4ER PO
[2020-04-18 16:40] LABS: BASOPHILS ABSOLUTE AUTO 0.04 K/mm3 (0.00-0.23); BASOPHILS PERCENT AUTO 1 % (0-2); EOSINOPHILS ABSOLUTE AUTO 0.16 K/mm3 (0.00-0.68); EOSINOPHILS PERCENT AUTO 2 % (0-6); Hematocrit 40.4 % (37.0-53.0); Hemoglobin 13.1 g/dL (13.5-17.5); IMMATURE GRAN ABSOLUTE AUTO 0.03 K/mm3 (0.00-0.10); IMMATURE GRAN PERCENT AUTO 0 % (0-1); LYMPHOCYTES ABSOLUTE AUTO 1.44 K/mm3 (0.84-5.20); LYMPHOCYTES PERCENT AUTO 17 % (21-46); MONOCYTES ABSOLUTE AUTO 0.89 K/mm3 (0.16-1.47); MONOCYTES PERCENT AUTO 11 % (4-13); Mean Corpuscular HGB 26.3 pg (26.0-34.0); Mean Corpuscular HGB Conc 32.4 g/dL (31.5-36.5); Mean Corpuscular Volume 81 fL (80-100); Mean Platelet Volume 8.8 fL (9.1-12.4); NEUTROPHILS ABSOLUTE AUTO 5.72 K/mm3 (1.96-9.15); NEUTROPHILS PERCENT AUTO 69 % (41-73); Platelet Count 377 K/mm3 (150-400); RDW Coefficient Variation 18.5 % (11.7-14.2); RDW Standard Deviation 53.3 fL (35.1-46.3); Red Blood Cell Count 4.98 M/mm3 (4.30-5.90); White Blood Cell Count 8.28 K/mm3 (4.00-11.30)
[2020-04-18 17:24] LABS: Alanine Aminotransfer (ALT/SGP 92 U/L (12-78); Alk Phos 132 U/L (50-136); Anion Gap 6 mmol/L (6-16); Aspartate Aminotrans (AST/SGOT 81 U/L (12-37); Bilirubin, Total 0.6 mg/dL (0.1-1.0); Blood Urea Nitrogen 20 mg/dL (8-24); Bun/Creatinine Ratio 24.6 (12.0-20.0); CO2, Blood 30 mmol/L (21-32); Calcium, Blood 9.7 mg/dL (8.5-10.1); Chloride, Blood 96 mmol/L (98-108); Creatinine, Blood 0.81 mg/dL (0.60-1.20); Globulin, Blood 4.1 g/dL (2.2-4.0); Glomerular Filtration Rate >60 (60-); Glucose, Blood 86 mg/dL (70-99); Potassium, Blood 3.9 mmol/L (3.5-5.5); Sodium, Blood 132 mmol/L (136-145); Total Protein, Blood 8.1 g/dL (6.4-8.2)
== END 2020-04-18 20:10 | disposition home or self-care (01) ==
LOC: ER 16:14
PROVIDERS: Physician Assistant
DX: F10.129 Alcohol abuse with intoxication, unspecified (principal); Z79.899 Other long term (current) drug therapy; Z79.02 Long term (current) use of antithrombotics/antiplatelets; J44.9 Chronic obstructive pulmonary disease, unspecified; K21.9 Gastro-esophageal reflux disease without esophagitis
CPT/HCPCS: 36415; 80053; 85025; 99284

== ENCOUNTER 2020-05-17 21:27 | Emergency (ER) | payer OTHER ==
[~2020-05-17] VITALS: Ht 177.8 cm; Wt 81.7 kg
== END 2020-05-18 02:00 | disposition home or self-care (01) ==
LOC: ER 21:27
DX: F10.129 Alcohol abuse with intoxication, unspecified (principal); J44.9 Chronic obstructive pulmonary disease, unspecified; K21.9 Gastro-esophageal reflux disease without esophagitis; Z79.899 Other long term (current) drug therapy; Z79.02 Long term (current) use of antithrombotics/antiplatelets
CPT/HCPCS: 99284

== ENCOUNTER 2020-06-14 05:30 | Emergency (ER) | payer OTHER ==
[~2020-06-14] VITALS: Ht 170.2 cm; Wt 81.7 kg
== END 2020-06-14 05:37 ==
LOC: ER 05:30
DX: Z02.89 Encounter for other administrative examinations (principal); J44.9 Chronic obstructive pulmonary disease, unspecified; F17.210 Nicotine dependence, cigarettes, uncomplicated; Z79.899 Other long term (current) drug therapy; Z79.02 Long term (current) use of antithrombotics/antiplatelets
CPT/HCPCS: 99283

== ENCOUNTER 2020-11-05 01:09 | Observation (INO) | payer OTHER ==
[~2020-11-05] VITALS: Ht 172.7 cm; Wt 76.1 kg
[2020-11-05 01:36] LABS: BASOPHILS ABSOLUTE AUTO 0.03 K/mm3 (0.00-0.23); BASOPHILS PERCENT AUTO 0 % (0-2); EOSINOPHILS ABSOLUTE AUTO 0.16 K/mm3 (0.00-0.68); EOSINOPHILS PERCENT AUTO 2 % (0-6); Hematocrit 38.6 % (37.0-53.0); Hemoglobin 12.2 g/dL (13.5-17.5); IMMATURE GRAN ABSOLUTE AUTO 0.12 K/mm3 (0.00-0.10); IMMATURE GRAN PERCENT AUTO 1 % (0-1); LYMPHOCYTES ABSOLUTE AUTO 1.14 K/mm3 (0.84-5.20); LYMPHOCYTES PERCENT AUTO 11 % (21-46); MONOCYTES ABSOLUTE AUTO 1.03 K/mm3 (0.16-1.47); MONOCYTES PERCENT AUTO 10 % (4-13); Mean Corpuscular HGB 26.2 pg (26.0-34.0); Mean Corpuscular HGB Conc 31.6 g/dL (31.5-36.5); Mean Corpuscular Volume 83 fL (80-100); Mean Platelet Volume 9.4 fL (9.1-12.4); NEUTROPHILS ABSOLUTE AUTO 7.85 K/mm3 (1.96-9.15); NEUTROPHILS PERCENT AUTO 76 % (41-73); Platelet Count 447 K/mm3 (150-400); RDW Coefficient Variation 19.9 % (11.7-14.2); RDW Standard Deviation 59.3 fL (35.1-46.3); Red Blood Cell Count 4.65 M/mm3 (4.30-5.90); White Blood Cell Count 10.33 K/mm3 (4.00-11.30)
[2020-11-05 01:50] LABS: Alanine Aminotransfer (ALT/SGP 17 U/L (12-78); Albumin, Blood 2.3 g/dL (3.4-5.0); Albumin/Globulin Ratio 0.5 (0.8-1.8); Alk Phos 97 U/L (50-136); Anion Gap 3 mmol/L (6-16); Aspartate Aminotrans (AST/SGOT 15 U/L (12-37); Bilirubin, Total 0.4 mg/dL (0.1-1.0); Blood Urea Nitrogen 9 mg/dL (8-24); Bun/Creatinine Ratio 10.8 (12.0-20.0); CO2, Blood 32 mmol/L (21-32); Calcium, Blood 9.6 mg/dL (8.5-10.1); Chloride, Blood 100 mmol/L (98-108); Creatinine, Blood 0.83 mg/dL (0.60-1.20); Glomerular Filtration Rate >60 (60-); Glucose, Blood 121 mg/dL (70-99); Potassium, Blood 4.2 mmol/L (3.5-5.5); Sodium, Blood 135 mmol/L (136-145); Total Protein, Blood 7.3 g/dL (6.4-8.2); Troponin I 0.086 ng/mL (0.000-0.040)
[2020-11-05 03:06] LABS: SARS-Cov-2 (COVID-19) PCR, MMC POSITIVE (NEGATIVE)
[2020-11-05] MEDS ORDERED: TRAZ100 PO (05:33)
--- NOTE | 2020-11-05 07:32 | NUR ---
SHIFT SUMMARY: AURA IS BEING ADMITTED TO THE FLOOR FOR COVID-19 PNEUMONIA. ARRIVED VIA GURNEY, TRANSFERRED WITH 1 ASSIST. AOX3, HOMELESS. HAS HAD DYSPNEA X 5 DAYS WITH PRODUCTIVE COUGH, GREEN SPUTUM HE STATES. COUGH IS MOIST. LS DIMINISHED. 3L O2, BASE IS RA. DYSPNEA WITH EXERTION. TELE SINUS. NO CHEST PAIN. GOOD APPETITE, NO CHANGE IN TASTE BUDS. SKIN PWD, NO BREAKDOWN. DENIES ANY URINARY PROBLEMS. BM THIS AM. REDESIMIR FIRST DOSE STARTED. PLACED IN DROPLET ISOLATION. CALL LIGHT IN REACH. REPORT GIVEN TO DAYSHIFT.
[2020-11-05 09:42] LABS: BASOPHILS ABSOLUTE AUTO 0.02 K/mm3 (0.00-0.23); BASOPHILS PERCENT AUTO 0 % (0-2); EOSINOPHILS ABSOLUTE AUTO 0.15 K/mm3 (0.00-0.68); EOSINOPHILS PERCENT AUTO 2 % (0-6); Hematocrit 37.4 % (37.0-53.0); Hemoglobin 11.7 g/dL (13.5-17.5); IMMATURE GRAN ABSOLUTE AUTO 0.08 K/mm3 (0.00-0.10); IMMATURE GRAN PERCENT AUTO 1 % (0-1); LYMPHOCYTES ABSOLUTE AUTO 1.17 K/mm3 (0.84-5.20); LYMPHOCYTES PERCENT AUTO 14 % (21-46); MONOCYTES ABSOLUTE AUTO 1.12 K/mm3 (0.16-1.47); MONOCYTES PERCENT AUTO 13 % (4-13); Mean Corpuscular HGB 26.4 pg (26.0-34.0); Mean Corpuscular HGB Conc 31.3 g/dL (31.5-36.5); Mean Corpuscular Volume 84 fL (80-100); Mean Platelet Volume 9.4 fL (9.1-12.4); NEUTROPHILS ABSOLUTE AUTO 5.98 K/mm3 (1.96-9.15); NEUTROPHILS PERCENT AUTO 70 % (41-73); Platelet Count 439 K/mm3 (150-400); RDW Coefficient Variation 19.9 % (11.7-14.2); RDW Standard Deviation 60.3 fL (35.1-46.3); Red Blood Cell Count 4.43 M/mm3 (4.30-5.90); White Blood Cell Count 8.52 K/mm3 (4.00-11.30)
[2020-11-05 10:00] LABS: Alanine Aminotransfer (ALT/SGP 14 U/L (12-78); Albumin, Blood 2.1 g/dL (3.4-5.0); Albumin/Globulin Ratio 0.4 (0.8-1.8); Alk Phos 89 U/L (50-136); Anion Gap 3 mmol/L (6-16); Aspartate Aminotrans (AST/SGOT 12 U/L (12-37); Bilirubin, Total 0.4 mg/dL (0.1-1.0); Blood Urea Nitrogen 9 mg/dL (8-24); Bun/Creatinine Ratio 9.8 (12.0-20.0); CO2, Blood 34 mmol/L (21-32); CPK Creatine Kinase 50 U/L (39-308); Calcium, Blood 9.3 mg/dL (8.5-10.1); Chloride, Blood 98 mmol/L (98-108); Creatinine, Blood 0.92 mg/dL (0.60-1.20); Globulin, Blood 4.9 g/dL (2.2-4.0); Glomerular Filtration Rate >60 (60-); Glucose, Blood 115 mg/dL (70-99); Potassium, Blood 4.4 mmol/L (3.5-5.5); Sodium, Blood 135 mmol/L (136-145); Troponin I 0.095 ng/mL (0.000-0.040)
[2020-11-05 18:38] LABS: Troponin I 0.04 ng/mL (0.000-0.040)
--- NOTE | 2020-11-05 19:10 | NUR ---
ASSUMED CARE RECEIVED REPORT FROM CHANDA JUAREZ. PT RESTING, IN NAD. NO ACUTE NEEDS ASSESSED AT THIS TIME. CALL LIGHT, POSSESSIONS IN REACH, BED IN LOW AND LOCKED POSITION.
--- NOTE | 2020-11-05 19:11 | NUR ---
SHIFT SUMMARY PT A/O X4 AND ADMITTED FOR COVID 19. CURRENTLY SATTING >90% ON 3 LITERS O2. ECHO SHOWED SIGNS OF P.E. PT TO HAVE C.T. TO RULE OUT P.E. AND TO CHECK THE AORTA. ETOH BUT CIWAS HAVE BEEN NEGATIVE. C/O PAIN IN HIS R RIBS FROM COUGHING. TREATED PER EMR. VSS. WILL REPORT TO GIOVANNY ARMAS.
--- NOTE | 2020-11-05 20:45 | NUR ---
PT OFF FLOOR TO CT SCAN.
--- NOTE | 2020-11-05 21:20 | NUR ---
PT RETURNED FROM CT SCAN
[2020-11-06 04:58] LABS: Hematocrit 42.6 % (37.0-53.0); Mean Corpuscular HGB Conc 30.5 g/dL (31.5-36.5); Mean Corpuscular Volume 85 fL (80-100); Mean Platelet Volume 10.2 fL (9.1-12.4); Platelet Count 516 K/mm3 (150-400); RDW Coefficient Variation 20.4 % (11.7-14.2); RDW Standard Deviation 62.9 fL (35.1-46.3); White Blood Cell Count 8.73 K/mm3 (4.00-11.30)
[2020-11-06 05:25] LABS: Anion Gap 4 mmol/L (6-16); Blood Urea Nitrogen 17 mg/dL (8-24); Bun/Creatinine Ratio 18.2 (12.0-20.0); CO2, Blood 34 mmol/L (21-32); Calcium, Blood 10.4 mg/dL (8.5-10.1); Chloride, Blood 101 mmol/L (98-108); Creatinine, Blood 0.93 mg/dL (0.60-1.20); Glomerular Filtration Rate >60 (60-); Glucose, Blood 134 mg/dL (70-99); Potassium, Blood 5.3 mmol/L (3.5-5.5); Sodium, Blood 139 mmol/L (136-145)
--- NOTE | 2020-11-06 07:20 | NUR ---
FULL STACK SOFTWARE ENGINEER SUMMARY PT RESTING, IN NAD. NO ACUTE CONCERNS TO REPORT OVERNIGHT; VS REVIEWED,WNL; O2 SATS STABLE ON 3L/NC. DENIES PAIN OR DISCOMFORT. APPEARED TO SLEEP WELL OVERNIGHT. NO ACUTE NEEDS ASSESSED AT THIS TIME. CALL LIGHT, POSSESSIONS IN REACH, BED IN LOW AND LOCKED POSITION WITH ALARMS ON. REPORT GIVEN TO CHANDA SAAB.
--- NOTE | 2020-11-06 16:17 | NUR ---
SHIFT SUMMARY PT UP TO SHOWER THIS AFTERNOON WITH ASSISTANCE TO BATHROOM. WENT ON RA AND SATS 98% AFTER APPROX 10 MINUTES IN SHOWER. DID STAY IN BATHROOM FOR ANOTHER 20 MINUTES AFTER SPOT CHECKED AND WAS 89%. O2 REPLACED AT 2L/M BY NC. REPORTS NO SHORTNESS OF BREATH WITH ACTIVITY. ANXIOUS ABOUT NO ALBUTEROL INHALOR NEARBY MOST OF DAY AND ASKING AFTER IT FREQUENTLY. REPORTS WHEN HE HAS A COUGHING FIT THE INHALOR HELPS. SPOKE WITH RT. NO RESP DISTRESS OTHERWISE NOTED THROUGH SHIFT.
[2020-11-07 05:21] LABS: Hematocrit 39.4 % (37.0-53.0); Mean Corpuscular HGB 25.6 pg (26.0-34.0); Mean Corpuscular HGB Conc 30.5 g/dL (31.5-36.5); Mean Corpuscular Volume 84 fL (80-100); Mean Platelet Volume 9.8 fL (9.1-12.4); Platelet Count 495 K/mm3 (150-400); RDW Standard Deviation 59.9 fL (35.1-46.3); Red Blood Cell Count 4.68 M/mm3 (4.30-5.90); White Blood Cell Count 12.07 K/mm3 (4.00-11.30)
[2020-11-07 05:50] LABS: Anion Gap 2 mmol/L (6-16); Blood Urea Nitrogen 24 mg/dL (8-24); Bun/Creatinine Ratio 24.6 (12.0-20.0); CO2, Blood 35 mmol/L (21-32); Calcium, Blood 9.9 mg/dL (8.5-10.1); Chloride, Blood 101 mmol/L (98-108); Creatinine, Blood 0.97 mg/dL (0.60-1.20); Glomerular Filtration Rate >60 (60-); Glucose, Blood 133 mg/dL (70-99); Magnesium, Blood 2.8 mg/dL (1.6-2.4); Potassium, Blood 4.9 mmol/L (3.5-5.5); Sodium, Blood 138 mmol/L (136-145)
--- NOTE | 2020-11-07 06:35 | NUR ---
SHIFT SUMMARY PT IS A 64 Y/O MALE, ADMITTED FOR PNA D/T COVID-19. HE IS A&O X 4, SBA TO THE BATHROOM. TELE SHOWED NSR IN THE 70S. VITAL SIGNS STABLE. CURRENTLY ON 2L VIA NC. HE WAS MEDICATED FOR CHRONIC PAIN WITH PRN OXYCODONE AT HS. NO OTHER C/O ACUTE PAIN OR NAUSEA. NO ACUTE CHANGES IN PT CONDITION NOTED DURING THE NIGHT. WILL CONTINUE TO MONITOR AND TREAT PER EMAR UNTIL HAND OFF TO DAY SHIFT RN.
--- NOTE | 2020-11-07 18:26 | NUR ---
NO ACUTE CHANGES THIS SHIFT, WILL CONTINUE TO MONITOR.
--- NOTE | 2020-11-08 04:55 | NUR ---
SHIFT SUMMARY- NO AUTE EVENTS OVERNIGHT. PT. SLEPT T/O THEN NIGHT, NO APPARENT DISTRESS NOTED. NO COMPLAINTS OF PAIN OR DISCOMFORT, ON 1L NC. VSS. CALL LIGHT WITHIN REACH AND SIDE RAILS UPX2. WILL CONT TO MONITOR.
--- NOTE | 2020-11-08 12:25 | NUR ---
Patient is sitting up in bed and alert. Patient tells me about his homelessness, his struggle with COVID and his plan to go to [facility] for addiction treatment. We talk about attitudes that help with success with in house therapy and about his hopes of full recovery. I provide therapeutic litening and prayer. Patient responds well and shows signs of increased hope.
[2020-11-08] MEDS ORDERED: XARELTO20 MG PO (16:24)
[2020-11-08] MEDS ORDERED: MIRT30 PO (16:24)
[2020-11-08] MEDS ORDERED: DEXA6 PO (16:24)
[2020-11-08] MEDS ORDERED: OXYC5 PO (16:24)
[2020-11-08] MEDS ORDERED: VITAMIN D5000 UNIT PO (16:25)
[2020-11-08] MEDS ORDERED: XARELTO15 MG PO (16:55)
--- NOTE | 2020-11-08 18:06 | NUR ---
PATIENT IS ALERT AND ORIENTED AND COOPERATIVE WITH CARE. NS 70 BPM PER CODING COMPLIANCE MANAGER. ON RA. PATIENT IS TO DISCHARGE TO [facility] AT 1930. NO COMPLAINTS THIS SHIFT. MEDICATIONS FAXED TO [facility] AND [facility] IS TO SHIRT HEMMER THOSE PRESCRIPTIONS AND DROP THEM OFF WITH THE PATIENT AT THE [facility]. WILL CONTINUE TO MONITOR
== END 2020-11-08 19:30 | disposition home or self-care (01) ==
LOC: ER 01:09 → MEDS 01:10 → ER 03:37 → MEDS 03:37
PROVIDERS: Emergency Medicine; Internal Medicine; ADMIT Internal Medicine
DX: U07.1 COVID-19 (principal); J12.82 Pneumonia due to coronavirus disease 2019; J96.01 Acute respiratory failure with hypoxia; J44.0 Chronic obstructive pulmonary disease with (acute) lower respiratory infection; J44.1 Chronic obstructive pulmonary disease with (acute) exacerbation; I26.99 Other pulmonary embolism without acute cor pulmonale; F17.210 Nicotine dependence, cigarettes, uncomplicated; F10.10 Alcohol abuse, uncomplicated; G89.29 Other chronic pain; K21.9 Gastro-esophageal reflux disease without esophagitis; Z89.432 Acquired absence of left foot; Z89.431 Acquired absence of right foot; Z79.899 Other long term (current) drug therapy
CPT/HCPCS: 36415; 71046; 71260; 80048; 80053; 82550; 82947; 83735; 83880; 84145; 84484; 85025; 85027; 87070; 87205; 93005; 93010; 93306; 94640; 94760; 94762; 96365; 96372; 96375; 96376; 99285-25; A9270; G0378; J0456; J0696; J1650; J2543; J2930; J3411; J7040; J7050; Q9967; U0004

== ENCOUNTER 2021-01-24 11:55 | Inpatient (IN) | payer OTHER ==
[~2021-01-24] VITALS: Ht 170.2 cm; Wt 83.7 kg
[~2021-01-24 11:55] MED LIST changes: +DEXA6 PO; +MIRT30 PO; +OXYC5 PO; +VITAMIN D5000 UNIT PO; +XARELTO15 MG PO; +XARELTO20 MG PO
[2021-01-24 13:22] LABS: BASOPHILS ABSOLUTE AUTO 0.03 K/mm3 (0.00-0.23); BASOPHILS PERCENT AUTO 0 % (0-2); EOSINOPHILS ABSOLUTE AUTO 0.21 K/mm3 (0.00-0.68); EOSINOPHILS PERCENT AUTO 2 % (0-6); Hematocrit 39.4 % (37.0-53.0); Hemoglobin 12.2 g/dL (13.5-17.5); IMMATURE GRAN ABSOLUTE AUTO 0.12 K/mm3 (0.00-0.10); IMMATURE GRAN PERCENT AUTO 1 % (0-1); LYMPHOCYTES ABSOLUTE AUTO 1.21 K/mm3 (0.84-5.20); LYMPHOCYTES PERCENT AUTO 13 % (21-46); MONOCYTES ABSOLUTE AUTO 0.85 K/mm3 (0.16-1.47); MONOCYTES PERCENT AUTO 9 % (4-13); Mean Corpuscular HGB 26.1 pg (26.0-34.0); Mean Corpuscular Volume 84 fL (80-100); NEUTROPHILS ABSOLUTE AUTO 7.13 K/mm3 (1.96-9.15); NEUTROPHILS PERCENT AUTO 75 % (41-73); Platelet Count 181 K/mm3 (150-400); RDW Coefficient Variation 19.2 % (11.7-14.2); RDW Standard Deviation 57.3 fL (35.1-46.3); Red Blood Cell Count 4.68 M/mm3 (4.30-5.90); White Blood Cell Count 9.55 K/mm3 (4.00-11.30)
[2021-01-24 13:59] LABS: Alanine Aminotransfer (ALT/SGP 34 U/L (12-78); Albumin, Blood 3.1 g/dL (3.4-5.0); Albumin/Globulin Ratio 0.8 (0.8-1.8); Alk Phos 185 U/L (50-136); Anion Gap 8 mmol/L (6-16); Aspartate Aminotrans (AST/SGOT 36 U/L (12-37); Bilirubin, Total 0.7 mg/dL (0.1-1.0); Blood Urea Nitrogen 14 mg/dL (8-24); Bun/Creatinine Ratio 18.3 (12.0-20.0); CO2, Blood 30 mmol/L (21-32); Calcium, Blood 9.2 mg/dL (8.5-10.1); Chloride, Blood 91 mmol/L (98-108); Creatinine, Blood 0.77 mg/dL (0.60-1.20); Globulin, Blood 3.8 g/dL (2.2-4.0); Glomerular Filtration Rate >60 (60-); Glucose, Blood 101 mg/dL (70-99); Potassium, Blood 4.7 mmol/L (3.5-5.5); Sodium, Blood 129 mmol/L (136-145); Total Protein, Blood 6.9 g/dL (6.4-8.2); Troponin I 0.111 ng/mL (0.000-0.040)
[2021-01-24 14:22] LABS: Influenza A, PCR NEGATIVE (NEGATIVE); Influenza B, PCR NEGATIVE (NEGATIVE); Resp Syncytial Virus, PCR NEGATIVE (NEGATIVE); SARS-Cov-2 (COVID-19) PCR, MMC NEGATIVE (NEGATIVE)
[2021-01-24 18:19] LABS: PO2 Arterial 70.4 mmHg (80-100); pH Blood Arterial 7.33 (7.35-7.45)
[2021-01-24 20:22] LABS: Troponin I 0.111 ng/mL (0.000-0.040)
[2021-01-24 20:36] LABS: Creatine Kinase MB 14.4 ng/mL (0.0-3.6); Creatine Kinase MB Index 4.4 (0.0-4.0)
[2021-01-25 00:48] LABS: U Amphetamine Screen Not Detected; U Barbituate Screen Not Detected; U Benzodiazapine Screen Not Detected; U Buprenorphine Screen Not Detected; U Cannabinoids Screen Not Detected; U Cocaine Screen Not Detected; U Methadone Screen Not Detected; U Methamphetamine Screen Not Detected; U Opiates Screen Not Detected; U Oxycodone Screen Not Detected; U Phencyclidine Screen Not Detected; U Propoxyphene Screen Not Detected
[2021-01-25 04:03] LABS: BASOPHILS ABSOLUTE AUTO 0.01 K/mm3 (0.00-0.23); BASOPHILS PERCENT AUTO 0 % (0-2); EOSINOPHILS PERCENT AUTO 0 % (0-6); Hematocrit 39.2 % (37.0-53.0); Hemoglobin 12.1 g/dL (13.5-17.5); IMMATURE GRAN ABSOLUTE AUTO 0.07 K/mm3 (0.00-0.10); IMMATURE GRAN PERCENT AUTO 1 % (0-1); LYMPHOCYTES ABSOLUTE AUTO 0.28 K/mm3 (0.84-5.20); LYMPHOCYTES PERCENT AUTO 5 % (21-46); MONOCYTES ABSOLUTE AUTO 0.12 K/mm3 (0.16-1.47); MONOCYTES PERCENT AUTO 2 % (4-13); Mean Corpuscular HGB 26.2 pg (26.0-34.0); Mean Corpuscular HGB Conc 30.9 g/dL (31.5-36.5); Mean Corpuscular Volume 85 fL (80-100); Mean Platelet Volume 9.2 fL (9.1-12.4); NEUTROPHILS ABSOLUTE AUTO 5.52 K/mm3 (1.96-9.15); NEUTROPHILS PERCENT AUTO 92 % (41-73); Platelet Count 168 K/mm3 (150-400); RDW Coefficient Variation 19.6 % (11.7-14.2); RDW Standard Deviation 57.7 fL (35.1-46.3); Red Blood Cell Count 4.61 M/mm3 (4.30-5.90)
[2021-01-25 04:24] LABS: Alanine Aminotransfer (ALT/SGP 28 U/L (12-78); Albumin, Blood 2.7 g/dL (3.4-5.0); Albumin/Globulin Ratio 0.6 (0.8-1.8); Alk Phos 162 U/L (50-136); Anion Gap 8 mmol/L (6-16); Aspartate Aminotrans (AST/SGOT 27 U/L (12-37); Bilirubin, Total 0.5 mg/dL (0.1-1.0); Blood Urea Nitrogen 17 mg/dL (8-24); Bun/Creatinine Ratio 17.4 (12.0-20.0); CO2, Blood 35 mmol/L (21-32); Calcium, Blood 9.3 mg/dL (8.5-10.1); Chloride, Blood 91 mmol/L (98-108); Creatinine, Blood 0.98 mg/dL (0.60-1.20); Globulin, Blood 4.3 g/dL (2.2-4.0); Glomerular Filtration Rate >60 (60-); Glucose, Blood 123 mg/dL (70-99); Potassium, Blood 4.4 mmol/L (3.5-5.5); Sodium, Blood 134 mmol/L (136-145)
[2021-01-25 04:37] LABS: Troponin I 0.092 ng/mL (0.000-0.040)
--- NOTE | 2021-01-25 04:43 | NUR ---
PT IS A/OX4, SLEEPY BUT EASILY AROUSABLE. ANSWERING ADMISSION QUESTIONS APPROPRIATLY, USING URINAL, AND EATING AND DRINKING WITHOUT ISSUES. COMPLIANT WITH CPAP, MAINTANING O2 ABOUT 92%.
[2021-01-25 05:47] LABS: PCO2 Arterial 62.9 mmHg (35-45); PO2 Arterial 79.8 mmHg (80-100)
--- NOTE | 2021-01-25 18:24 | NUR ---
SHIFT SUMMARY PT ALERT AND ORIENTED X4. VITAL SIGNS STABLE, SPO2 89-92% VIA 2L NC. PT DENIED CHEST PAIN/PRESSURE T/O SHIFT BUT REPORTED NEUROPATHIC PAIN IN BILATERAL FEET. PT IS ABLE TO UTILIZE BEDSIDE URINAL AND CALLS APPROPRIATELY. NO OTHER ACUTE CHANGES NOTED. WILL CONTINUE TO MONITOR UNITL REPORT GIVEN. CALL LIGHT IN REACH.
--- NOTE | 2021-01-26 17:27 | NUR ---
SHIFT SUMMARY PATIENT ALERT AND ORIENTED X4 THIS SHIFT. VSS. PATIENT ON 1.5L NC WITH OXYGEN SATURATION ABOVE 92%. DENIES CHEST PAIN OR PRESSURE BUT DOES MENTION NEUROPATHY FROM "FROSTBITE". PATIENT ALSO REPORTED RIGHT FOOT WAS BECOMING "MORE SENSITIVE" AND WAS TURNING COLORS. RIGHT FOOT ASSESSED, STRONG PULSE PRESENT AND FOOT IS WARM TO TOUCH. OUTLINE DRAWN ON PATIENT'S FOOT TO DETERMINE ANY CHANGES OR SPREAD. PATIENT STATES FEET ARE "ALWAYS PURPLE OR BLUE SINCE HAVING FROSTBITE". PATIENT ABLE TO USE URINAL AT BEDSIDE AND WALKS INTO BATHROOM USING A FWW WITH MINIMAL ASSISTANCE. USES CALL LIGHT APPROPRIATLEY. NO OTHER SIGNIFICANT CHANGES NOTED. WILL REPORT TO ELEMENT WINDING MACHINE TENDER.
--- NOTE | 2021-01-27 06:04 | NUR ---
SHIFT SUMMARY PATIENT IS A PLESANT MAN WHO IS A&OX4. UP IND IN ROOM. BLE NEUROPATHY NOTED AT BASELINE AND RIGHT FOOT THAT HAD PREVIOUS ACUNA BITE IS HURTING AND A PURPLE DISCOLORATION. PATIENT STATES THAT IS HOW LOOKED AND FELT WHEN ACUNA BIT. AREA MARKED AND MONITORING CLOSELY. REFUSED NEED FOR PAIN MEDS.VSS. NO TELE IN PLACE. ON 1.5L NC SATING LOW 90'S. TOLERATING REG DIET WITHOUT ISSUE. NO ACUTE CONCERNS AT THIS TIME. WILL CONTINUE PLAN OF CARE UNTIL REPORT GIVEN TO GONZALEZ ARMAS.
--- NOTE | 2021-01-27 18:08 | NUR ---
SHIFT SUMMARY PT A&Ox4; CALM AND COOPERATIVE WITH CARE. PT RESTING IN BED, APPEARS TO BE SLEEPING INTERMITTENTLY T/O SHIFT. PT DENIES PAIN, CHEST PAIN/PRESSURE, SOB, NAUSEA AND DIZZINESS. PT TITRATED FROM 1.5L O2 VIA NC TO RA; SPO2 >90% T/O SHIFT. BP SOFT, OTHER VSS. NO OTHER ACUTE CHANGES NOTED. WILL CONTINUE TO MONITOR UNITL REPORT GIVEN TO ONCOMING RN.
--- NOTE | 2021-01-28 05:28 | NUR ---
SHIFT SUMMARY PATIENT ALERT AND ORIENTED. HAD NO COMPLAINTS OF PAIN OR SHORTNESS OF BREATH. NO ACUTE ISSUES NOTED. CALL LIGHT WITHIN REACH.
--- NOTE | 2021-01-28 15:45 | NUR ---
Patient immediately tells me about his homelessness, his poor health choices and his struggles to get along with authority (ie the director of the [facility]). Pt talks about the challenges that come from trying to come up from living on the streets to any sort of structured environment. Patient states that he is willing to try a live-in treatment center or even an [facility] if it could work out. I encourage self-care and provide gentle financial counselor and prayer. Patient responds well and shows signs of being more open to the help that continues to be extended to him. I will continue to remain available to patient and family.
--- NOTE | 2021-01-28 18:13 | NUR ---
SHIFT SUMMARY PT A&Ox4; CALM AND COOPERATIVE WITH CARE. PT REPORTS PAIN TO RLE, MEDICATED PER ORDERS; PT REPORTS TRAMADOL HAS NOT WORKED FOR THE PAIN; NOTIFIED DR MCDERMOTT, NEW ORDER FOR INCREASE GABAPENTIN AND OXYCODONE. PT DENIES CHEST PAIN/PRESSURE, SOB, NASUEA AND DIZZINESS. DR PYLE AT BEDSIDE THIS EVENING, RECCOMENDED IR CONSULT; NOTIFIED DR MCDERMOTT AND CALLED DR MIRAMONTES ANSWERING SERVICE. VSS. NO OTHER ACUTE CHANGES NOTED. WILL CONTINUE TO MONITOR. UNTIL REPORT GIVEN TO ONCOMING RN.
--- NOTE | 2021-01-29 04:04 | NUR ---
SHIFT SUMMARY PATIENT HAD NO ACUTE CHANGES OBSERVED. AXOX 4 AND SBA TO BSC. NO IV ACCESS. DENIES CHEST PAIN, SOB, AND N/V. VSS/AFEBRILE. ON ROOM AIR. USES URINAL AT BEDSIDE. COOPERATIVE WITH CARE. CALL LIGHT IN REACH. BED IN LOWEST POSITION. WILL CONTINUE TO MONITOR UNTIL DAY SHIFT NURSE ASSUMES CARE.
[2021-01-29] MEDS ORDERED: SPIR25 PO (14:06)
--- NOTE | 2021-01-29 17:43 | NUR ---
SHIFT SUMMARY; ASSUMED CARE AT 0700. A/A/OX4 DURING SHIFT, REPOSITIONS SELF NEEDED. BILATERAL FEET WARM WITH CAP REFILL <3. REPORTS PAIN BILATERALLY. [facility] TRANSPORT TO [place] [id number], VERBAL AND WRITTEN INSTRUCTIONS GIVEN. RX TO BE PICKED UP BY [facility] FEATHER SEPARATOR.
== END 2021-01-29 17:38 | disposition home or self-care (01) | DRG 189 ==
LOC: ER 11:55 → PCU 17:22
PROVIDERS: Physician Assistant; ADMIT Internal Medicine
DX: J96.01 Acute respiratory failure with hypoxia (principal); I21.A1 Myocardial infarction type 2; M87.874 Other osteonecrosis, right foot; J44.1 Chronic obstructive pulmonary disease with (acute) exacerbation; Z59.00 Homelessness unspecified; F10.20 Alcohol dependence, uncomplicated; Z20.822 Contact with and (suspected) exposure to COVID-19; G89.29 Other chronic pain; M54.9 Dorsalgia, unspecified; Z79.899 Other long term (current) drug therapy; F17.210 Nicotine dependence, cigarettes, uncomplicated; Z86.16 Personal history of COVID-19; Z23 Encounter for immunization
CPT/HCPCS: 0241U; 36415; 36600; 70450; 71045; 71260; 80053; 82140; 82550; 82553; 82803; 83880; 84484; 85025; 87070; 87205; 90686; 93005; 93010; 93922; 94640; 94660; 94762; 96365; 96366; 96375; 99285-25; A9270; J1650; J1940; J1956; J2930; J7512; Q9967

== ENCOUNTER 2021-05-20 13:09 | Inpatient (IN) | payer OTHER ==
[~2021-05-20] VITALS: Ht 172.7 cm; Wt 89.5 kg
[~2021-05-20 13:09] MED LIST changes: +SPIR25 PO; -XARELTO15 MG PO
[2021-05-20 15:48] LABS: BASOPHILS ABSOLUTE AUTO 0.03 K/mm3 (0.00-0.23); BASOPHILS PERCENT AUTO 0 % (0-2); EOSINOPHILS ABSOLUTE AUTO 0.26 K/mm3 (0.00-0.68); EOSINOPHILS PERCENT AUTO 3 % (0-6); Hematocrit 42.3 % (37.0-53.0); IMMATURE GRAN ABSOLUTE AUTO 0.03 K/mm3 (0.00-0.10); IMMATURE GRAN PERCENT AUTO 0 % (0-1); LYMPHOCYTES ABSOLUTE AUTO 1.48 K/mm3 (0.84-5.20); LYMPHOCYTES PERCENT AUTO 19 % (21-46); MONOCYTES ABSOLUTE AUTO 0.63 K/mm3 (0.16-1.47); MONOCYTES PERCENT AUTO 8 % (4-13); Mean Corpuscular HGB 24.8 pg (26.0-34.0); Mean Corpuscular HGB Conc 30.7 g/dL (31.5-36.5); Mean Corpuscular Volume 81 fL (80-100); NEUTROPHILS ABSOLUTE AUTO 5.32 K/mm3 (1.96-9.15); NEUTROPHILS PERCENT AUTO 69 % (41-73); Platelet Count 350 K/mm3 (150-400); RDW Coefficient Variation 21.1 % (11.7-14.2); RDW Standard Deviation 59.8 fL (35.1-46.3); Red Blood Cell Count 5.25 M/mm3 (4.30-5.90); White Blood Cell Count 7.75 K/mm3 (4.00-11.30)
[2021-05-20 16:34] LABS: Alanine Aminotransfer (ALT/SGP 30 U/L (12-78); Albumin, Blood 4.1 g/dL (3.4-5.0); Alk Phos 129 U/L (50-136); Anion Gap 8 mmol/L (6-16); Aspartate Aminotrans (AST/SGOT 27 U/L (12-37); Bilirubin, Total 0.4 mg/dL (0.1-1.0); Blood Urea Nitrogen 12 mg/dL (8-24); CO2, Blood 29 mmol/L (21-32); Calcium, Blood 9.4 mg/dL (8.5-10.1); Chloride, Blood 100 mmol/L (98-108); Creatinine, Blood 0.75 mg/dL (0.60-1.20); Globulin, Blood 4.1 g/dL (2.2-4.0); Glomerular Filtration Rate >60 (60-); Glucose, Blood 95 mg/dL (70-99); Potassium, Blood 4.2 mmol/L (3.5-5.5); Sodium, Blood 137 mmol/L (136-145); Total Protein, Blood 8.2 g/dL (6.4-8.2)
[2021-05-20 16:47] LABS: CPK Creatine Kinase 713 U/L (39-308); Creatine Kinase MB 16.8 ng/mL (0.0-3.6); Creatine Kinase MB Index 2.4 (0.0-4.0)
[2021-05-20 17:15] LABS: Influenza A, PCR NEGATIVE (NEGATIVE); Influenza B, PCR NEGATIVE (NEGATIVE); Resp Syncytial Virus, PCR NEGATIVE (NEGATIVE); SARS-Cov-2 (COVID-19) PCR, MMC NEGATIVE (NEGATIVE)
[2021-05-20 19:18] LABS: Source, Urine Clean Catch
[2021-05-20 19:23] LABS: Appearance, Urine Clear (Clear); Bilirubin, Urine Neg (Neg); Blood, Urine Neg (Neg); Color, Urine Yellow (P-Yellow); Glucose Qualitative, Urine Neg (Neg); Ketones, Urine Neg (Neg); Leukocyte Esterase, Urine Neg (Neg); Nitrite, Urine Neg (Neg); Protein, Urine Neg (Neg); Urobilinogen, Urine NORM (Normal)
[2021-05-20] MEDS ORDERED: NEURONTIN600 MG PO (23:06)
--- NOTE | 2021-05-21 06:32 | NUR ---
SHIFT SUMMARY ASSUMED CARE OF PT AT 1900. PT IS A/OX4. HEART SOUNDS REGULAR, LUNG SOUNDS HAVE WHEEZES. RT CONSULTED WITH CARE AND BREAHTING TREATMENT GIVEN. PT HAS MOIST NONPRODUCTIVE COUGH. PT IS A CURRENT SMOKER. PT USED A URINAL T/O THE NIGHT BUT WAS ABLE TO TRANSFER FROM SCOOTER TO BED WITH A 1P ASSIST. PT IS HOMELESS AND USUALLY DOES THINGS FOR HIMSELF. PT HAS AN ULCER AND DISCOLORATION ON HIS R FOOT, PICTURES IN CHART. PT C/O 9 PAIN, RESIDENT GERBER NOTIFIED AND REVEIWED CHART AND ORDERED APPROPIATE MEDICATIONS. PT WAS ABLE TO GET SOME SLEEP LAST NIGHT. PT HAS BEEN NPO SINCE MIDNIGHT FOR POSSIBLE PROCEDURE.
--- NOTE | 2021-05-21 12:16 | NUR ---
DUPLEX SCAN OF LOWER EXTREMITIES: IMPRESSION SHOWS STENOSIS AND ATHEROSCLEROSIS HOOP CUTTER CALLED TO REPORT A SHORT RUN OF [facility] THIS AM. SLIGHTLY BEFORE THE TIME THEY CALLED, PATIENT WAS COUGHING AND ASKED FOR A BREATHING TREATMENT. RT CAME TO DO A TREATMENT. COUGH PRODUCTION WAS WHITE, THICK, MODERATE AMOUNT.
--- NOTE | 2021-05-21 13:59 | NUR ---
NOTIFIED THAT THIS PATIENT WILL BE SEEN IN THE [facility] TODAY FOR PROCEDURE.
--- NOTE | 2021-05-21 17:31 | NUR ---
PCU ARRIVAL / SHIFT SUMMARY PT BROUGHT TO PCU-07 FROM [employer], ALREADY IN PCU BED @ APPROX 1640. PT A&O X4. VSS. SPO2 > 92% ON 3.5L NC. MONITOR SHOWING SR, HR 70's. PT W/ NOTED BILAT FOREFOOT AMPUTATIONS. BLE HOT TO TOUCH. DOPPLER USED FOR RIGHT PEDAL PULSE. PURPLE/BLACK DISCOLORATION NOTED TO R FOOT, SEE WOUND PHOTOS IN CHART. LEFT GROIN ACCESS SITE WNL, W/ NO BLEEDING & NO HEMATOMA. PT REMINDED OF POST PROCEDURE GROIN SITE RESTRICTIONS. PT W/ NO HEPARIN GTT INFUSING BUT NOTES OF HEPARIN GTT FOR TONIGHT & IN AM. CALL TO MD MIRAMONTES TO CLARIFY ORDERS FOR HEPARIN GTT. MD MIRAMONTES W/ INSTRUCTION TO DEFER TO MD ANNE FOR HEPARIN ORDER. MG ANNE W/ ORDER TO DC HEPARIN GTT ORDER & PLAN FOR PT TO BEGIN PO AC TOMORROW. WILL CONTINUE TO MONITOR & PROVIDE CARE UNTIL REPORT OFF TO LEGUILLON DEBEADER RN.
[2021-05-22 03:28] LABS: BASOPHILS ABSOLUTE AUTO 0.01 K/mm3 (0.00-0.23); BASOPHILS PERCENT AUTO 0 % (0-2); EOSINOPHILS ABSOLUTE AUTO 0.29 K/mm3 (0.00-0.68); EOSINOPHILS PERCENT AUTO 4 % (0-6); Hematocrit 35.2 % (37.0-53.0); Hemoglobin 10.6 g/dL (13.5-17.5); IMMATURE GRAN ABSOLUTE AUTO 0.03 K/mm3 (0.00-0.10); IMMATURE GRAN PERCENT AUTO 0 % (0-1); LYMPHOCYTES ABSOLUTE AUTO 1.24 K/mm3 (0.84-5.20); LYMPHOCYTES PERCENT AUTO 17 % (21-46); MONOCYTES ABSOLUTE AUTO 0.77 K/mm3 (0.16-1.47); MONOCYTES PERCENT AUTO 11 % (4-13); Mean Corpuscular HGB 24.8 pg (26.0-34.0); Mean Corpuscular HGB Conc 30.1 g/dL (31.5-36.5); Mean Corpuscular Volume 82 fL (80-100); Mean Platelet Volume 9.3 fL (9.1-12.4); NEUTROPHILS ABSOLUTE AUTO 4.85 K/mm3 (1.96-9.15); NEUTROPHILS PERCENT AUTO 68 % (41-73); Platelet Count 250 K/mm3 (150-400); RDW Coefficient Variation 20.3 % (11.7-14.2); RDW Standard Deviation 60.6 fL (35.1-46.3); Red Blood Cell Count 4.27 M/mm3 (4.30-5.90); White Blood Cell Count 7.19 K/mm3 (4.00-11.30)
--- NOTE | 2021-05-22 05:15 | NUR ---
SHIFT SUMMARY NO ACUTE CHANGES THIS SHIFT. VSS. L GROIN STABLE, NO BLEEDING/HEMATOMA FORMATION. DOPPLER PULSES PRESENT TO BILATERAL FEET T/O SHIFT. PT MANAGEMENT EFFECTIVE PER PATIENT. PT ON 3LNC AT BEGINNING OF SHIFT, FOR JOSÉ MIGUEL PURPOSES, PT ON 5LNC WHEN ASLEEP BUT WHILE AWAKE TOLERATES 2LNC. R FOOT WOUND PRESENT, NO DRAINAGE NOTED, STABLE. PICS IN CHART. PT HAS SLEPT MAJOPRITY OF SHIFT. CONTINENT. PLEASANT. AND USING CALL LIGHT APPROPRIATELY. BED ALARM IN PLACE.
--- NOTE | 2021-05-22 11:40 | NUR ---
UPDATE PT A&O X4. VSS. SPO2 > 92% ON RA, TITRATED DOWN FROM 3L NC. MONITOR SHOWS SR, HR 80's. PT TOLERATING STAND/PIVOT TO MOTORIZED WHEELCHAIR/SCOOTER FOR TRANSPORTATION INTO BATHROOM FOR RESTROOM USE & SHOWER. L GROIN SITE WNL. PT REPORTING "SHOCKING" PAIN IN R FOOT. PT MEDICATED PER EMAR/PT REQUEST W/ PT REPORT OF IMPROVEMENT. WILL CONTINUE TO MONITOR & PROVIDE CARE
--- NOTE | 2021-05-22 13:32 | NUR ---
Patient is resting in bed but easily awakens to the sound of his name. 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 He tells ma baout his symptoms and the procedure already done to help increased blood flow to his foot. He tells ma again about the horrors of being homeless but also that he can't live under anyone elses rules. I cut the visit short to allow PT to work with pt and state that I will return another time.
--- NOTE | 2021-05-22 18:06 | NUR ---
SHIFT SUMMARY PT CONTINUES TO BE A&O X4. VSS. SPO2 > 92% ON RA. PT REQUIRING 2-3L NC FOR SLEEP. MONITOR SHOWING SR, HR 80's. L GROIN ACCESS SITE WNL. PT MEDICATED PER PT REQUEST/EMAR FOR "SHOCKING" PAIN IN R FOOT W/ PT REPORT OF IMPROVEMENT. PT ALSO REQUESTING PO GABAPENTIN SCHEDULING BE ADJUSTED FROM CURRENT BID SCHEDULDE TO TID HOME SCHEDULE. MD MUÑOZ W/ ORDER FOR RESUMPTION OF HOME GABAPENTIN SCHEDULING/DOSING. DOPPLER FOR BILAT PEDAL PULSES. R FOOT WOUND PHOTOS IN CHART. WILL CONTINUE TO MONITOR & PROVIDE CARE UNTIL REPORT OFF TO JIG GRINDER SET UP OPERATOR RN.
--- NOTE | 2021-05-23 06:24 | NUR ---
SHIFT SUMMARY NO ACUTE CHANGES THIS SHIFT. VSS. AXO. PAIN CONTROL EFFECTIVE. ON 2LNC AT BEGINNING OF SHIFT, PLACED ON 5L WHILE SLEEPING FOR JOSÉ MIGUEL. VOIDING WELL INTO URINAL. PULSES PALPABLE TO BILAT FEET. OTHERWISE, SLEPT T/O NIGHT.
--- NOTE | 2021-05-23 16:56 | NUR ---
SHIFT SUMMARY NO ACUTE EVENTS THIS SHIFT, VSS. PT ON NASAL CANNULA THIS SHIFT, TOLERATING WELL. PT DECLINED TO WORK WITH PT/OT TODAY. PT WAS ON THE PHONE MAKING CALLS TO FOOT CUTTER REFERRED BY [employer] ACCOUNT MANAGER. PT COMPLAINED OF PAIN IN HIS FEET TODAY, MEDICATED PER EMAR TO PT SATISFACTION.
--- NOTE | 2021-05-23 17:56 | NUR ---
REPORT GIVEN TO JACE ARMAS ON MEDICAL.
--- NOTE | 2021-05-23 18:11 | NUR ---
TRANSFER TO MEDICAL 65 Y MALE ADMITTED WITH R FOOT ULCER TRANSFERRED FRO PCU TO MEDICAL FLOOR. REPORT RECEIVEDF FROM RN WOUND. PT ARRIVED TO ROOM ON PERSONAL MOTORIZED W/C AND WAS A SBA TRANSFER TO BED. PT ORIENTED TO ROOM, CALL LIGHT SYSTEM, BED CONTROLS AND PHONE. PT SONIA ANY PAIN AT THIS TIME. PT IS A&O, PLEASANT AND COOPERATIVE WITH CARE. PT RESTING IN BED IN LOWEST POTISION WITH CALL LIGHT IN REACH.
--- NOTE | 2021-05-24 04:20 | NUR ---
SHIFT SUMMARY PT AOX4. VSS. ADMITTED FOR ISCHEMIC R FOOT ULCER, S/P WITH DR. MORENO AND A REVASCULARIZATION WITH DR. MIRAMONTES. PT REPORTS PAIN ON BILATERAL AMPUTATED FEET. PT WEARS 4L OF 02 AT THE BEGINNING OF SHIFT. TITRATE DOWN TO 2L AT SLEEP FOR COMFORT. RA AT BASELINE. ATTEMPT TO WEAN OFF O2 AT ROOM AIR. PT SATS AT 91-93%. TOLERATES IT WELL. DENIES SOB/CP. PT TOLERATES PO INTAKE WELL, DENIES N/V. REPORTS CHRONIC N/T, GABAPENTIN GIVEN AT HS. USED URINAL OVERNIGHT. VOIDING WITHOUT ISSUE. CALL LIGHT WITHIN REACH. WILL CONTINUE TO MONITOR. AND WILL PROVIDE REPORT TO ONCOMING NURSE.
--- NOTE | 2021-05-24 08:00 | NUR ---
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
--- NOTE | 2021-05-24 19:23 | NUR ---
pt had a bit of a nose bleed this evening when Dr. Langford was in to see him, just a few drips and stopped on its own, no complaints or needs, up to chair for meals, call light in reach.
--- NOTE | 2021-05-25 03:41 | NUR ---
SHIFT SUMMARY NO ACUTE CHANGES OVERNIGHT. PT SLEPT GOOD. PT HAD TRAZODONE TO HELP HIM SLEEP. PT'S R FOOT ULCER BLED AT THE BEGINNING OF SHIFT. WOUND CLEANSE AND WRAP WITH GAUZE. PT REPORTS PAIN 8/10, PAIN MANAGED WITH NORCO 10/325 X1. PT REPORTS RELIEF AFTER PAIN MED GIVEN. PT ALSO REPORTS CHRONIC N/T ON BLE. GABAPENTIN GIVEN AT NIGHT. VOIDING ADEQUATELY, USE URINAL. TELE: SINUS TACH WITH PVC'S. CALL LIGHT WITHIN REACH. WILL PROVIDE REPORT TO ONCOMING NURSE.
--- NOTE | 2021-05-25 08:00 | NUR ---
pt laying in bed, didn't want to get to chair for breakfast this am, a/ox3, pleasant and cooperative with care, follows commands well, states pain to right foot is ok at this time, lungs are dim t/o, has a harsh wet productive cough of yellow sputum, on r/a, hrr, tele in place running sr with bbb, see strip, no edema noted, ppp found via doppler, piv is clear and patent, toes amputated on b/l feet, dressing to right foot as was leaking a small amount durring the night, dressing is c/d/i, leigh milton, call light in reach.
--- NOTE | 2021-05-25 18:19 | NUR ---
pt sat up in chair for lunch and dinner, wants to take a shower, changed dressing on his foot as it was dripping a scant amount of blood when dressing was applied, was soiled a small amount, cleansed wound and redressed with nonadherant dressing, covered with plastic bag for a shower, no further changes this shift. call light in reach.
[2021-05-26 05:14] LABS: BASOPHILS ABSOLUTE AUTO 0.02 K/mm3 (0.00-0.23); BASOPHILS PERCENT AUTO 0 % (0-2); EOSINOPHILS ABSOLUTE AUTO 0.33 K/mm3 (0.00-0.68); EOSINOPHILS PERCENT AUTO 6 % (0-6); Hematocrit 35.4 % (37.0-53.0); Hemoglobin 10.5 g/dL (13.5-17.5); IMMATURE GRAN ABSOLUTE AUTO 0.02 K/mm3 (0.00-0.10); IMMATURE GRAN PERCENT AUTO 0 % (0-1); LYMPHOCYTES ABSOLUTE AUTO 1.57 K/mm3 (0.84-5.20); LYMPHOCYTES PERCENT AUTO 29 % (21-46); MONOCYTES ABSOLUTE AUTO 0.79 K/mm3 (0.16-1.47); MONOCYTES PERCENT AUTO 14 % (4-13); Mean Corpuscular HGB 24.4 pg (26.0-34.0); Mean Corpuscular HGB Conc 29.7 g/dL (31.5-36.5); Mean Corpuscular Volume 82 fL (80-100); Mean Platelet Volume 9.5 fL (9.1-12.4); NEUTROPHILS ABSOLUTE AUTO 2.78 K/mm3 (1.96-9.15); NEUTROPHILS PERCENT AUTO 50 % (41-73); Platelet Count 280 K/mm3 (150-400); RDW Coefficient Variation 19.8 % (11.7-14.2); RDW Standard Deviation 58.5 fL (35.1-46.3); White Blood Cell Count 5.51 K/mm3 (4.00-11.30)
[2021-05-26 05:39] LABS: Anion Gap 4 mmol/L (6-16); Blood Urea Nitrogen 30 mg/dL (8-24); Bun/Creatinine Ratio 30.8 (12.0-20.0); CO2, Blood 33 mmol/L (21-32); Calcium, Blood 9.5 mg/dL (8.5-10.1); Chloride, Blood 100 mmol/L (98-108); Creatinine, Blood 0.98 mg/dL (0.60-1.20); Glomerular Filtration Rate >60 (60-); Glucose, Blood 94 mg/dL (70-99); Potassium, Blood 4.4 mmol/L (3.5-5.5); Sodium, Blood 137 mmol/L (136-145)
--- NOTE | 2021-05-26 08:00 | NUR ---
SHIFT SUMMARY NO ACUTE CHANGES OVERNIGHT. PT USED INHALER X1 T/O SHIFT. REPORTS PAIN IN HIS FEET, MANAGED WITH TYLENOL AND NORCO. AOX4. VSS. PT DENIES CP, SOB. REPORTS CHRONIC NUMBNESS IN BLE. CALL LIGHT WITHIN REACH. REPORT GIVEN TO DAY SHIFT NURSE.
--- NOTE | 2021-05-26 18:13 | NUR ---
END OF SHIFT SUMMARY: PATIENT UP TO CHAIR MULTIPLE TIMES DURING THE DAY. PATIENT UP TO SHOWER VIA ROLLING SHOWER CHAIR. PATIENT WORKED WITH PT/OT. PATIENT REPORTED THAT HIS ORTHOTIC SHOES WERE STOLEN FROM HIM DURING HIS TIME WITHOUT A HOME. NOTIFIED PT/OT. PATIENT CONTINUES TO HAVE SOME PAIN IN HIS RIGHT FOOT/ANKLE. PAIN ELEVATED WITH ACTIVITY. REST AND PRN MEDICATIONS MANAGED PAIN. PATIENT REPORTS THAT THE NICOTINE PATCHES HAVE MADE IT SO HE DOES NOT CRAVE CIGARETTES. DISCUSSED THE MERITS OF CESSATION. PATIENT REPORTS HE WOULD LIKE TO QUIT PERMANENTLY.
--- NOTE | 2021-05-27 06:04 | NUR ---
SHIFT SUMMARY PT A/O X 4, MED PER MAR FOR C/O PAIN TO R FOOT AND BACK, TK PO WELL, VOIDING LARGE AMOUNTS CLEAR, YELLOW URINE WITHOUT DIFFICULTY. VSS, DRSG C/D/I TO R FOOT, PT REPORTS CHRONIC NEUROPATHY TO BLE'S. ANTICIPATE D/C WHEN MEDICALLY STABLE AND PLACEMENT DETERMINED.
--- NOTE | 2021-05-27 18:07 | NUR ---
PATIENT REPORTS FEELING PRETTY GOOD. HIS PAIN WAS GENERALLY IN THE RIGHT FOOT ONLY, AND WAS RELIEVED WITH PAIN MEDIATION. HE WALKED WITH PT THIS AM, APROX. 70 FEET, DOWN TO THE WINDOW AT THE END OF THE HALLWAY. THE FOOT BECAME SORE AFTERWARD. APPETITE IS GOOD, EATING MOST OF HIS MEALS. PATIENT FEELS LIKE SOME OF HIS STRENGTH IS RETURNING. PATIENT STATES THAT HE NEEDS A NEW PAIR OF ORTOPEDIC SHOES, AND IS WONDERING IF THEY WILL HAVE TO TAKE NEW MOLDS OF HIS FEET.
[2021-05-28] MEDS ORDERED: FLUTICASONE-SA1 EAC9 INH (05:09)
--- NOTE | 2021-05-28 06:24 | NUR ---
WIRER MAINTENANCE SUMMARY ADMITTED FOR ULCER OF THE RIGHT FOOT. HE IS FULL CODE. PT HAD AMPUTATION TO THE RIGHT FOOT. HE ALSO HAD A REVASCULARIZATION A WEEK AGO. MEDICATED X1 FOR PAIN IN THE RIGHT FOOT. PT IS [id number] ASSIST TO [facility] [place] NORMALLY USES POWERCHAIR. HE IS ALERT AND ORIENTED AND PLEASANT WITH CARE. PT AWAITING PLACEMENT.
--- NOTE | 2021-05-28 19:17 | NUR ---
PATIENT HAD A GOOD SHIFT. HE IS GAINING STRENGTH. MOOD IS GOOD. MEDICATIONS WERE CHANGED FROM NARCO TO ULTRAM FOR PAIN CONTROL. APPEARS TO BE EFFECTIVE IN MANAGING PAIN.
--- NOTE | 2021-05-29 07:37 | NUR ---
ACADEMIC AFFAIRS SPECIALIST SUMMARY PT STILL AWAITING PLACEMENT AND REHAB. HE WAS MEDICATED ONCE FOR PAIN AND ONCE FOR SLEEP. HE IS PLEASANT AND COOPERATIVE, ALERT AND ORIENTED X4. DRESSING IS C/D/I. PT IS MOSTLY INDEPENDENT IN THE ROOM. SLEEPING THROUGHOUT THE SHIFT. PT USES CALL LIGHT APPROPRIATELY. NO OTHER CONCERNS THIS SHIFT.
--- NOTE | 2021-05-29 17:02 | NUR ---
SHIFT SUMMARY PT AxOx4. PLEASANT AND COOPERATIVE WITH CARE. PT HAD MOSTLY UNEVENTFUL DAY. PT REPORTED PAIN x1 IN RLE TODAY. MEDICATED PER EMAR WITH REPORTED RELIEF. RLE DRESSING C/D/I. VITALS REVIEWED. PT CURRENTLY RESTING IN CHAIR WITH CALL LIGHT IN REACH. DENIES ANY NEEDS AT THIS TIME. CASE MANAGEMENT LOOKING INTO PLACEMENT FOR DC. HX HOMELESSNESS
--- NOTE | 2021-05-30 05:43 | NUR ---
PATIENT WITH PAIN TO RIGHT FOOT MEDICATED PER APR. NO ACUTE CHANGES OVERNIGHT. PATIENT ABLE TO SLEEP AFTER TRAZODONE GIVEN.
--- NOTE | 2021-05-30 17:49 | NUR ---
SHIFT SUMMARY PT A&O X4 AND IN PLEASENT MOOD T/O SHIFT. PT TOOK SHOWER W/ MOD ASSIST THIS SHIFT. DRESSING TO LLE CDI. TOLERATING PO INTAKE WELL @ THIS TIME. UP TO BSC, UP @ BEDSIDE FOR ALL MEALS. VSS. CALL LIGHT W/IN REACH. NICOTINE PATCH DOSE INCREASED THIS SHIFT PER PT REQUEST.
--- NOTE | 2021-05-31 08:20 | NUR ---
PATIENT WITH NO ACUTE CHANGES OVERNIGHT. MEDICATED FOR PAIN PER MAR.
--- NOTE | 2021-05-31 16:09 | NUR ---
WOUND CHANGED THIS SHIFT, PT TOLERATED WELL. MIN. C/O PAIN-PLAN TO MEDICATE PER EMAR. PHOTO DOCUMENTATION IN CHART.
--- NOTE | 2021-05-31 17:11 | NUR ---
SHIFT SUMMARY PT A&O X4 AND IN PLEASENT MOOD T/O SHIFT. WOUND REDRESSED AND PHOTOGRAPHED THIS SHIFT. PAIN MEDICATED PER EMAR. C/O CONSTIPATION- PLAN TO NOTIFY DR. PT RESTED IN BED COMFORTABLE T/O MOST OF SHIFT. REQUESTED COFFEE T/O SHIFT. VSS. CALL LIGHT W/IN REACH.
--- NOTE | 2021-06-01 05:06 | NUR ---
PATIENT ABLE TO SLEEP THROUGHOUT THE NIGHT WITHOUT ANY ACUTE CHANGES NOTED. CONTINUES TO HAVE PAIN TO RIGHT FOOT AND MEDICATED PER MAR.
--- NOTE | 2021-06-01 18:28 | NUR ---
SHIFT SUMMARY PT A&O X4 AND IN PLEASENT MOOD T/O SHIFT. DRESSING C/D/I, PLAN TO CHANGE DRESSING TOMORROW - PLAN TO REPORT TO NEXT RN. PT C/O CONSTIPATION, PROVIDED PRUNE JUICE & MEDICATED PER EMAR. PT RESTED COMFORTABLE IN BED T/O SHIFT, ENJOYED WATCHING TV. CALL LIGHT W/IN REACH. VSS.
--- NOTE | 2021-06-02 06:02 | NUR ---
SHIFT SUMMARY PT A/O X 4, RESTED WELL, MINIMAL C/O PAIN TO R FOOT, DRSG C/D/I, CHRONIC N/T TO BLE'S. PT VOIDING WITHOUT DIFFICULTY, USING URINAL, VSS, ANTICIPATE D/C WHEN PLACEMENT DETERMINED.
--- NOTE | 2021-06-02 07:30 | NUR ---
ASSUMED CARE: PT RESTING IN BED BUT AWAKE AND INTERACTIVE WITH STAFF DURING BEDSIDE REPORT. NO ACUTE NEEDS OR CONCERNS AT THIS TIME.
--- NOTE | 2021-06-02 07:30 | NUR ---
ASSUMED CARE: PT IS AWAKE/ORIENTED AND SITTING UP IN BED, WAS ABLE TO PARTICIP[ATE IN BEDSIDE REPORT. NO ACUTE NEEDS/DISTRESS AT THIS TIME.
--- NOTE | 2021-06-02 10:30 | NUR ---
REVIEWED FOREST LANDSCAPE ECOLOGY PROFESSOR'S HEAD TO TOE ASSESSMENT AND AGREE
--- NOTE | 2021-06-02 15:28 | NUR ---
PT REQUESTED THAT HIS GABAPENTIN DOSING BE CHANGED TO HIS REGULAR HOME DOSING OF 1200MG BID. CALLED DR PITTS TO REQUEST CHANGE AND WAS INFORMED THAT DOSING WAS NOT APPROPRIATE FOR PATIENT NEED. INFORMED PT OF THIS AND HE UNDERSTOOD, NO ACUTE NEEDS/DISTRESS AT THIS TIME.
--- NOTE | 2021-06-02 17:44 | NUR ---
SHIFT SUMMARY: PT IS A&OX4, VOIDS INDEPENDENTLY W/ BSC. PT COMPLAINS OF MINIMAL PAIN/NEUROPATHY TO RLE THROUGHOUT SHIFT, RELIEF W/ MEDICATION PER MAR. PT REQUESTED DOSING ON GABAPENTIN BE ADJUSTED, DR PITTS STATED THIS WOULD NOT BE THERPUAETIC, PT UNDERSTOOD. DRESSING TO RLE CLEANSED AND CHANGED, REMAINS C/D/I. PT REPORTS NO ACUTE NEEDS/DISTRESS AT THIS TIME, CALL LIGHT WITHIN REACH.
--- NOTE | 2021-06-03 05:47 | NUR ---
SHIFT SUMMARY PT RESTED WELL, MED PER MAR FOR MODERATE PAIN TO R FOOT, PT SHOWERED WITH ASSIST, NEW DRSG PLACED ON R FOOT AFTER SHOWER. PT ABLE TO STAND/PIVOT TRANSFER INDEPENDENTLY. VSS, VOIDING WITHOUT DIFFICULTY, ANTICIPATE D/C WHEN PLACEMENT DETERMINED.
--- NOTE | 2021-06-03 16:11 | NUR ---
SHIFT SUMMARY PATIENT IS ALERT AND ORIENTED X4. PATIENT IS PLEASENT AND COOPERATIVE WITH CARE. PATIENT HAS HAD NO ACUTE EVENTS THIS SHIFT. VITAL SIGNS REVIEWED. DRESSING ON TOES IS C/D/I. PATIENT WORKED WELL WITH PT TODAY. PATIENT HAS NO COMPLAINTS OF PAIN, NAUSEA, SOB OR VOMITTING THIS SHIFT. PATIENT HAS RESTED COMFORTABLY IN CHAIR AND BED MOST OF SHIFT. BED IN LOCKED AND LOWEST POSITION. CALL LIGHT IN PLACE. WILL MONITOR UNTIL SHIFT CHANGE.
--- NOTE | 2021-06-04 04:56 | NUR ---
SUMMARY PT HAS NO NEW ISSUES. PT DISCOMFORT HAS BEEN TX WELL PER EMAR. PT HAS BEEN SLEEPING WELL. PT CURRENTLY SLEEPING IN NO DISTRESS. CALL LIGHT IN REACH.
--- NOTE | 2021-06-04 16:02 | NUR ---
SHIFT SUMMARY PATIENT IS ALERT AND ORIENTED X4. PATIENT IS PLEASENT AND COOPERATIVE WITH CARE. PATIENT HAS HAD NO COMPLAINTS OF PAIN, NAUSEA, PAIN OR SOB THIS SHIFT. PATIENT HAS HAD NO ACUTE EVENTS THIS SHIFT. VITAL SIGNS ARE REVIEWED. BED IN LOCKED AND LOWEST POSITION, CALL LIGHT IN PLACE. WILL MONITOR UNTIL SHIFT CHANGE.
--- NOTE | 2021-06-05 04:05 | NUR ---
SHIFT SUMMARY: PT IS ALERT AND ORIENTED. PT IS A ONE PERSON ASSIST WITH FWW, NOT OUT OF BED OVERNIGHT. PT USES THE URINAL INDEPENDENTLY. PT CALLS APPROPRIATELY. PT DENIES PAIN, NAUSEA, VOMITING, AND SOB. NO ACUTE CHANGES OR COMPLICATIONS OVERNIGHT. BED IN LOW POSITION, CALL LIGHT WITHIN REACH. WILL CONTINUE TO MONITOR.
--- NOTE | 2021-06-05 10:42 | NUR ---
Patient is sleeping but easily awakens to the sound of his name. He tells me about his medical issues, what procedures that were done to aid the healing process and the plan of care moving forward. I then talk with pt at length about his addictions and his ability to be housed (in a SNF or assisted living) and not return to the habits that are killing him. Pt states that he is done having hopes in himself to change, so we talk about hope, tj and self forgiveness. We talk about resources he can reach out to and the change in mentality required. Pt responds well to this dialgue and appears more hopeful. I end my time with him with prayer. Pt is moved by the prayer and voices appreciation for it, expressing that it was meaningful. I will continue to remain avaiable to pt.
--- NOTE | 2021-06-05 16:53 | NUR ---
SHIFT SUMMARY PATIENT IS ALERT AND ORIENTED X4. PATIENT IS A STANDBY ASSIST WITH FWW. PATIENT HAD A SHOWER TODAY. DRESSING CHANGE ON LEFT TOE AMPUTATION WAS DONE THIS AFTERNOON. PATIENT HAS HAD NO ACUTE EVENTS THIS SHIFT. VITAL SIGNS REVIEWED. BED IN LOWEST AND LOCKED POSITION. CALL LIGHT IN PLACE. WILL MONITOR UNTIL SHIFT CHANGE.
--- NOTE | 2021-06-06 16:49 | NUR ---
SHIFT SUMMARY PATIENT IS ALERT AND ORIENTED X4. PATIENT IS A STANDBY ASSIST USING FWW. PATIENT HAS HAD NO ACUTE EVENTS THIS SHIFT. VITAL SIGNS REVIEWED. PATIENT HAS RECEIVED TRAMADOL ONCE THIS SHIFT FOR LEG AND TOE PAIN. PATIENT HAS NOT COMPLAINED OF NAUSEA, SOB OR VOMITTING THIS SHIFT. BED IN LOCKED AND LOWEST POSITION. CALL LIGHT IN PLACE. WILL MONITOR UNTIL SHIFT CHANGE.
--- NOTE | 2021-06-07 06:06 | NUR ---
SHIFT SUMMARY: PATIENT CALM AND COOPERATIVE. PAIN TREATED PER EMAR. DRESSING TO RIGHT FOOT CDI. FINE CRACKELS TO LLL NOTED. NO SIGNIFICANT EVENTS ON NOC. PATIENT SLEPT WELL THROUGH THE NIGHT. MARIANO.
--- NOTE | 2021-06-07 16:40 | NUR ---
SHIFT SUMMARY PATIENT IS ALERT AND ORIENTED X4. PATIENT IS A PLACEMENT ISSUE. PATIENT IS PLEASENT AND COOPERATIVE WITH CARE. NO ACUTE EVENTS THIS SHIFT. VITAL SIGNS REVIEWED. BED IN LOCKED AND LOWEST POSITION. CALL LIGHT IN PLACE. PATIENT HAS DID NOT HAVE ANY COMPLAINTS OF SOB, NAUSEA, VOMITTING. PATIENT TAKES TRAMADOL PRN FOR AMPUTATION TOES. WILL MONITOR UNTIL NOC SHIFT.
--- NOTE | 2021-06-08 06:07 | NUR ---
SHIFT SUMMARY: NO SIGNIFICANT EVENTS ON NOC. CRACKELS REMAIN IN LLL. PAIN TREATED PER EMAR. PATIENT SHOWERED. WOUND CARE COMPLETED TO RIGHT FOOT.
--- NOTE | 2021-06-08 15:01 | NUR ---
SHIFT SUMMARY PATIENT IS ALERT AND ORIENTED X4. PATIENT HAS BEEN PLEASENT AND COOPERATIVE WITH CARE. PATIENT HAS HAD NO ACUTE EVENTS THIS SHIFT. VITAL SIGNS REVIEWED. PATIENT HAD A BATH TODAY AND HAS HAD FOOT REWRAPPED. PATIENT HAD CONCERNES ABOUT TOE AMPUTATION WOUND OPENING UP, RELAYED THIS TO DR AND BOTH LOOKED AT FOOT AND NOTATED NOTHING ACUTE OR CHANGING ABOUT WOUND. PATIENT IS LOCKED AND IS IN LOWEST POSITION. CALL LIGHT IN PLACE. WILL MONITOR UNTIL SHIFT CHANGE.
--- NOTE | 2021-06-09 05:49 | NUR ---
SHIFT SUMMARY: NO SIGNIFICANT EVENTS ON NOC. FINE CRACKELS NOTED BILATERL BASES. DRESSING TO RIGHT FOOT CDI. PAIN TREATED PER EMAR.
--- NOTE | 2021-06-09 18:35 | NUR ---
SHIFT SUMMARY PATIENT ALERT AND ORIENTED X4, PLEASANT AND COOPERATIVE WITH CARE. PATIENT IS INDEPENDENT IN ROOM. CALLS APPROPRIATELY. DRESSING ON RIGHT FOOT CHANGED TODAY BY THIS RN. PATIENT MEDICATED FOR PAIN X1. NO ACUTE EVENTS THIS SHIFT. PATIENT DENIES ANY DISCOMFORT OTHER THAN THE NEUROPATHY ALREADY NOTED. BED IN LOWEST POSITION, CALL LIGHT WITHIN REACH. NOTHING FURTHER TO REPORT.
--- NOTE | 2021-06-10 05:59 | NUR ---
SUMMARY: PT A/OX4, CALLS APPROPRIATELY TO SPECIFY NEEDS AND PLEASANT AND COOPERATIVE W/CARE. HE'S IS INDEPENDENT IN ROOM AND DENIED NEEDS T/O NOCTE. TRAZADONE AND ULTRAM PROVIDED AT HS PER PT REQUEST FOR SLEEP AND ADEQUATE PAIN CONTROL. DX REMAINS C/D/I TO R.FOOT AND WAS CHANGED ON DAY SHIFT. NO ACUTE CHANGES, VSS/AFEBRILE. WCTM AND REPORT TO DAY RN.
--- NOTE | 2021-06-10 16:04 | NUR ---
NO ACUTE CHANGES THIS SHIFT. DRESSING TO R FOOT REMAINS C/D/I. DRESSING CHANGES ARE EVERY OTHER DAY. TRAMADOL GIVEN X1 FOR R LEG PAIN. CALM AND COOPERATIVE WITH CARE. AWAITING PLACEMENT IN ASSISTED LIVING FACILTY.
--- NOTE | 2021-06-11 04:59 | NUR ---
SUMMARY: PT A/OX4, CALLS APPROPRIATELY TO SPECIFY NEEDS AND IS PLEASANT AND COOPERATIVE W/CARE. R.FOOT DX REMAINS C/D/I W/PHOTOS AND DX CHANGE DUE TODAY. TRAMADOL AND TRAZADONE PROVIDED PER PT REQUEST FOR RELIEF OF R.FOOT PAIN AND SLEEP. NO ACUTE CHANGES, VSS/AFEBRILE. WCTM AND REPORT TO DAY RN.
[2021-06-11 06:07] LABS: Hematocrit 40.3 % (37.0-53.0); Hemoglobin 11.9 g/dL (13.5-17.5); Mean Corpuscular HGB 23.6 pg (26.0-34.0); Mean Corpuscular HGB Conc 29.5 g/dL (31.5-36.5); Mean Corpuscular Volume 80 fL (80-100); Mean Platelet Volume 9.5 fL (9.1-12.4); Platelet Count 372 K/mm3 (150-400); RDW Coefficient Variation 18.5 % (11.7-14.2); RDW Standard Deviation 52.9 fL (35.1-46.3); Red Blood Cell Count 5.05 M/mm3 (4.30-5.90); White Blood Cell Count 6.81 K/mm3 (4.00-11.30)
[2021-06-11 06:19] LABS: Anion Gap 4 mmol/L (6-16); Blood Urea Nitrogen 29 mg/dL (8-24); Bun/Creatinine Ratio 30.6 (12.0-20.0); CO2, Blood 32 mmol/L (21-32); Calcium, Blood 9.6 mg/dL (8.5-10.1); Chloride, Blood 101 mmol/L (98-108); Creatinine, Blood 0.95 mg/dL (0.60-1.20); Glomerular Filtration Rate >60 (60-); Glucose, Blood 92 mg/dL (70-99); Magnesium, Blood 2.2 mg/dL (1.6-2.4); Potassium, Blood 4.4 mmol/L (3.5-5.5); Sodium, Blood 137 mmol/L (136-145)
--- NOTE | 2021-06-11 17:10 | NUR ---
SHIFT SUMMARY: PATIENT IS ALERT AND ORIENTED X4. HE IS PLEASANT AND COOPERATIVE WITH CARE. CALLS APPROPRIATELY. HE WAS GIVEN A DOSE OF TRAMADOL AND PAIN SEEMED TO IMPROVE. DRESSING WAS CHANGED ON HIS RIGHT FOOT WITH PICTURES TAKEN. WOUND REMAINS CLEAN, DRY, AND INTACT. NO ACUTE CHANGES. WILL CONTINUE TO MONITOR.
--- NOTE | 2021-06-12 05:39 | NUR ---
SHIFT SUMMARY: PT IS A/OX4. HE IS INDEPENDENT IN THE ROOM. DRESSINGS TO HIS FEET WERE CHANGED 06/11 AND ARE CDI. HE DOES HAVE TRAMADOL FOR PAIN MANAGEMENT. NO ACUTE CHANGES TO REPORT THIS NOC SHIFT.
--- NOTE | 2021-06-12 17:26 | NUR ---
SHIFT SUMMARY PATIENT A&OX4. INDEPENDENT IN ROOM. NO SIGNIFICANT EVENTS T/O SHIFT. AWAITING PLACEMENT. DRESSING CHANGED AFTER GETTING WET IN SHOWER. C/O PAIN RIGHT FOOT. MEDICATED PER APR X1. VSS. WILL CONTINUE TO MONITOR.
--- NOTE | 2021-06-12 17:27 | NUR ---
SHIFT SUMMARY PATIENT PLEASANT AND COOPERATIVE WITH CARE. PATIENT GETS UP TO BSC. MULTIPLE LOOSE, LIQUIDY BM T/O SHIFT. MEDICATED PER MAR WITH IMODOIM X5. POOR APPETITE. HYPOTENSIVE, MEDICATED PER MAR. PLAN TO D/C HOME TOMORROW AFTER DIALYSIS. WILL CONTINUE TO MONITOR.
--- NOTE | 2021-06-13 05:47 | NUR ---
PATIENT A/OX4, PER RN REPORT WALTERNET AWARE OF SAFETY LIMITATIONS AND KNOWS WHEN TO CALL FOR ASSISTANCE. PATIENT OBSERVED USING BC WITH NO SAFETY CONCERNS. PATIENT DID ASK FOR IMODIUM AFTER ONE LOOSE STOOL. PERMA CATH IN PLACE DRESSING C/D/I. NO ACUTE EVENTS NOTED OVERNIGHT. PT TO HAVE DIALYSIS TODAY AND BE DISCHARGE AFTERWARDS. VERY PLEASANT AND COOPERATIVE.
--- NOTE | 2021-06-13 11:08 | NUR ---
Patient talks about how he has appreciated being in the hospital. He talks about the amazing care he has received, about how grateful he is to have a roof over his head and 3 meals a day and, on top of all that, he has his medical issues managed well. He shares about his fears about the his future that include housing insecurity, not being able to adquately maintain his medical routines or stay sober and off of cigarettes if he ends up living on the streets again. We talk about care management and their role on creating a safe d/c and about the importance of hanging on to the resources that he tells me that he is aware of. I provide therapeutic listening, gentle financial health counselor and prayer. Patient responds well and shows signs reduced stress. I will cotinue to remain available to patient.
--- NOTE | 2021-06-13 17:58 | NUR ---
A&OX4. INDEPENDENT IN ROOM. DRESSING CHANGED AND CALCIUM ALGINATE PLACED ON WOUND. DRESSING C/D/I. PATIENT SHOWERED TODAY. C/O RIGHT FOOT PAIN. MEDICATED PER APR. NO SIGNIFICANT EVENTS. WILL CONTINUE TO MONITOR.
--- NOTE | 2021-06-14 04:08 | NUR ---
SHIFT SUMMARY: A/O X4, ADLIB IN ROOM. PATIENT COMPLAINS OF CONSTIPATION- SCHEDULED STOOL SOFTNER ADMINISTERED WITH REQUESTED PRUNE JUICE. DRESSING ON RIGHT FOOT INTACT. PATIENT ABLE TO MOBILIZE IN ROOM INDEPENDENTLY. BED IN LOW POSITION, CALL JONES IN REACH. WHEN ROUNDING PATIENT APPEARS TO BE RESTING COMFORTABLY.
--- NOTE | 2021-06-14 17:47 | NUR ---
SHIFT SUMMARY: PT IS A/O X4. PT IS INDEPENDENT IN ROOM. DRESSING ON RIGHT FOOT WAS REMOVED BY AND CHANGED BY MYSELF. PT WAS ABLE TO AMBULATE TO THE BATHROOM AND TAKE A SHOWER. PT IS OTHERWISE RESTING COMFORTABLY IN HIS ROOM WATCHING TV. BED IS IN LOW POSITION. CALL LIGHT IS IN REACH.
--- NOTE | 2021-06-15 06:41 | NUR ---
SHIFT SUMMARY: A/OX4 PATIENT ADLIB IN ROOM AND INDEPENDENT WITH ADL'S. NO COMPLAINTS OF PAIN OR DISCOMFORT THROUGHOUT THE NIGHT. UPON ROUNDING PATIENT WAS RESTING. BED IN LOW POSITION, CALL JONES IN REACH, PT CALLS APPROPRIATELY.
--- NOTE | 2021-06-15 18:35 | NUR ---
SHIFT SUMMARY: PT A/O X 4 IND IN ROOM. PLEASANT AND COOPERATIVE WITH CARE. PT WATCHED TV IN ROOM AND NAPPED THROUGH OUT THE DAY. PT ENCOURAGED TO GET UP TO CHAIR TO RECLINE AND ELEVATE FEET IN CHAIR BUT HE DECLINED. HE IS UP TO BATHROOM WITH STANDBY ASSIST NEEDED. WOUNDS TO R FOOT HAVE SCANT DRAINAGE WITH NO S/S OF INFECTION. PT DOES REPORT SLIGHT TENDERNESS TO STUMP WHERE WOUND IS. WOUND CARE COMPLETED WITH DRESSING CHANGE.
--- NOTE | 2021-06-16 04:25 | NUR ---
SHIFT SUMMARY: A/OX4, ADLIB IN ROOM AND INDEPENDENT CARE FOR ADL'S. PRN PAIN MEDICATION PROVIDED WITH 2100 MEDICATIONS. NO FURTHER DISCOMFORT REPORTED THROUGHOUT THE NIGHT. BED IN LOW POSITION, CALL JONES IN REACH AND PATIENT CALLS APPROPRIATELY.
--- NOTE | 2021-06-16 18:33 | NUR ---
SHIFT SUMMARY: PATIENT IS A/O X4 AND INDEPENDENT IN ROOM. PLEASANT AND COOPERATIVE WITH CARE. PT WATCHED TV IN ROOM. AMBULATED DOWN THE [place] AND BACK WITH PHYSICAL THERAPY. DID VERY WELL. WOUND TO RT FOOT WITH SCANT DRAINAGE, BUT APPEARS TO BE HEALING WELL. DRESSING IS CLEAN, DRY, AND INTACT. NO S/S INFECTION. BED IN LOW POSITION, CALL LIGHT IN REACH. WILL REPORT TO NIGHT NURSE.
--- NOTE | 2021-06-17 04:49 | NUR ---
PT A & OX4. V/S WNL. O2 SAT: 89% ON RA @ 0412. PT ENCOURAGED TO DEEP BREATH AND COUGH. O2 SATROSE TO 93% FOLLOWING BREATHING EXERCISES. PT REPORTED PAIN. PRN TRAMADOL GIVEN FOR PAIN NEEDED. DRESSING TO R) FOOT: C/D/I. NICOTINE PATCH TO L) UPPER ARM. BASELINE W/C. ADLIB IN ROOM. BEDSIDE URINAL. PT VOIDED W/O DIFFICULTY. NO BM THIS SHIFT. NO IV PRESENT. WILL CONTINUE TO MONITOR.
--- NOTE | 2021-06-17 18:10 | NUR ---
SHIFT SUMMARY PATIENT IS ALERT AND ORIENTED X3-4. PATIENT HAS BEEN PLEASENT AND COOPERATIVE WITH CARE THIS SHIFT. PATIENT IS PLANNING ON DISCHARGING TO [facility] WEDNESDAY. PATIENT HAS HAD NO ACUTE EVENTS THIS SHIFT. PATIENT HAS HAD LEG BANDAGE CHANGED THIS SHIFT. BED IN LOCKED AND LOWEST POSITION. CALL LIGHT IN PLACE. WILL MONITOR UNTIL SHIFT CHANGE.
--- NOTE | 2021-06-18 04:58 | NUR ---
PT A& OX4. V/S WNL. NO IV. PT C/O PAIN. PRN TRAMADOL GIVEN FOR PAIN AND PRN TRAZADONE GIVEN FOR IMSOMNIA. REGULAR DIET. PT VOIDED W/O DIFFICULTY. NO BM THIS SHIFT. INDEPEDANT IN ROOM. BASELINE W/C. WILL CONTINUE TO MONITOR.
--- NOTE | 2021-06-18 15:23 | NUR ---
SHIFT SUMMARY PATIENT IS ALERT AND ORIENTED X4. PATIENT HAS BEEN PLEASENT AND COOPERATIVE WITH CARE THIS SHIFT. PATIENT IS PLANNING ON DISCHARGING TO [facility] TOMORROW. PATIENT HAS HAD NO ACUTE EVENTS THIS SHIFT. VITAL SIGNS REVIEWED. PATIENT HAS HAD ONE PRN PAIN MEDICATION THIS MORNING FOR FOOT PAIN. NO OTHER COMPLAINTS OF PAIN, NAUSEA, VOMITTING OR SOB THIS SHIFT. BED IN LOCKED AND LOWEST POSITION. CALL LIGHT IN PLACE.
--- NOTE | 2021-06-19 06:05 | NUR ---
SHIFT SUMMARY: PATIENT A/OX4, NO COMPLAINTS OF PAIN THROUGHOUT THE NIGHT. PATIENT REMAINS ADLIB AND REPOSITIONS INDEPENDENT IN BED.
--- NOTE | 2021-06-19 19:56 | NUR ---
SHIFT SUMMARY PT AXO, PLEASANT AND COOPERATIVE WITH CARE. NO ACUTE CHANGES THIS SHIFT. PT REQUESTED THAT THE DRESSING BE LEFT OFF OF HIS R. FOOT. NOW FRANCISCA. NO IV IN PLACE. PT ENCOURAGED TO CALL WHEN OOB. BED IN LOW POSITION, CALL LIGHT WITHIN REACH.
--- NOTE | 2021-06-20 04:51 | NUR ---
SHIFT SUMMARY: A/OX4, ADLIB IN ROOM, INDEPENDENT REPOSITIONING IN BED. NO COMPLAINTS OF PAIN THROUGHT THE NIGHT. BED IN LOW POSITION, CALL JONES IN REACH, CALLS APPROPRIATLEY.
--- NOTE | 2021-06-20 10:20 | NUR ---
Pt talks at length about his possible move to [place], his concerns moving forward and his goals. I provide therapeutic listening, anxiety containment and prayer. Patient responds well and shows signs of increased peace.
--- NOTE | 2021-06-20 18:25 | NUR ---
SHIFT SUMMARY: NO ACUTE EVENTS. C/O PAIN IN BILATERAL FEET; MEDICATED PER EMAR WITH ADEQUATE RELIEF. WANTS TO TRY LYRICA FOR HIS NEUROPATHY. GETTING UP TO BR INDEPENDENTLY. APPETITE IS GOOD. AWAITING PLACEMENT AT [facility].
--- NOTE | 2021-06-21 06:18 | NUR ---
SHIFT SUMMARY: A/OX4, PATIENT ADLIB IN ROOM, REPOSITIONS SELF INDEPENDENTLY. NO COMPLAINTS OF PAIN THROUGHOUT THE NIGHT. BED IN LOW POSITION, CALL JONES IN REACH, CALLS APPROPRITELY.
--- NOTE | 2021-06-21 17:58 | NUR ---
SHIFT SUMMARY: NO ACUTE EVENTS. C/O NEUROPATHIC PAIN IN BILATERAL FEET; MEDICATED PER EMAR WITH ADEQUATE RELIEF. R FOOT WOUNDS ARE HEALED, FRANCISCA. INDEPENDENT IN ROOM. AWAITING PLACMENT AT [facility].
--- NOTE | 2021-06-22 04:35 | NUR ---
PT A & OX4. V/S WNL. REGULAR DIET. INDEPEDANT. NO IV ACCESS. BILAT METACARPAL AMPUTATION. PRN TRAZADONE GIVEN FOR IMSOMNIA PER EMAR. PT DENIED ANY PAIN. PT VOIDED W/O DIFFICULTY. NO BM THIS SHIFT. WILL CONTINUE TO MONITOR.
--- NOTE | 2021-06-22 17:00 | NUR ---
SHIFT SUMMARY: A&Ox4. VSS. WOUND L FOREFOOT FRANCISCA WITH HEALING SCAB. IND AMBULATION. TK PO INTAKE W/O DIFFICULTY. NICOTINE PATCH REPLACED; DECLINES SMOKING CESSATION MATERIAL AT THIS TIME. C/O NEUROPATHIC PAIN RELIEVED WITH ROUTINE GABAPENTIN AND PRN TRAMADOL. ANTICIPATE [facility] TOMORROW 06/22/21 FOR PERMANENT HOUSING.
--- NOTE | 2021-06-23 04:52 | NUR ---
PT A & OX4. V/S WNL. REGULAR DIET. NO IV ACCESS. BILAT METATARSAL AMPUTATION. INDEPEDANT IN ROOM. VOIDS W/O DIFFICULTY. NO BM THIS SHIFT. PT REPORTED R) FOOT PAIN; PRN TRAMADOL GIVEN FOR PAIN AND PRN TRAZADONE GIVEN FOR INSOMNIA PER EMAR. WILL CONTINUE TO MONITOR.
--- NOTE | 2021-06-23 17:33 | NUR ---
DAYSHIFT SUMMARY Pt doing well this shift, no acute changes to patient status, awaiting LTC placement. New nicotine patch placed to right/shoulder, covered with tagederm CDI. Pt requested tramadol x2 this shift for pain. Vitals stable, no other concerns at this time.
--- NOTE | 2021-06-24 06:24 | NUR ---
PT A & OX4. V/S WNL. INDEPENDANT. NO IV ACCESS. REGULAR DIET. INDEPEDANT. PT C/O PAIN TO FEET. PRN TRAMADOL GIVEN FOR PAIN PER EMAR. PRN TRAZADONE GIVEN FOR IMSOMNIA PER EMAR. WILL CONTINUE TO MONITOR.
--- NOTE | 2021-06-24 16:27 | NUR ---
DAYSHIFT SUMMARY No acute changes to patient status this shift. Pt resting comfortably in bed all day, up ad mundo. Nicotine patch placed on left shoulder. Requested tramadol PRN once this shift. Vitals stable, awaiting placement.
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
--- NOTE | 2021-06-25 19:26 | NUR ---
END OF SHIFT SUMMARY: PATIENT PAIN CONTROLLED WITH SCHEDULED AND PRN MEDICATIONS. PATIENT UP INDEPENDENTLY IN THE ROOM. WOUND ON RLE IS SCABBED OVER. C/D/I. NO DRAINAGE NOTED. NO REDNESS OF SWELLING OF SURROUNDING SKIN NOTED. PATIENT CALM AND COOPERATIVE. PATIENT UP INDEPENDENTLY IN THE ROOM.
--- NOTE | 2021-06-26 04:34 | NUR ---
SUMMARY PT SLEPT WELL T/O THE NIGHT. NO ACUTE EVENTS NOTED. RIGHT FOOT ULCER STAYED C/D/I. PT MEDICATED FOR PAIN PER EMAR WITH GOOD RESULTS. PT IS CURRENTLY SLEEPING IN NO DISTRESS, CALL LIGHT IN REACH.
--- NOTE | 2021-06-26 16:58 | NUR ---
SHIFT SUMMARY: PT A&OX4, CALM AND COOPERATIVE. INDEPENDENT IN ROOM. 1 TRAMADOL GIVEN PRN FOR PAIN. WOUND/SCABS ON RLE IS C/D/I, NO DRAINAGE. VITALS STABLE T/O SHIFT. NICOTINE PATCH PLACED ON LEFT SHOULDER. CALL LIGHT WITHIN REACH. PLAN IS TO FIND PLACEMENT TO CONTINUE RECOVERY.
--- NOTE | 2021-06-27 04:54 | NUR ---
PT A/OX4, VERY PLEASANT. PT STATES THAT HE BELIEVES GABAPENTIN IS NOT HELPING HIS NEUROPATHY AND WOULD LIKE TO SPEAK WITH THE DOCTOR REGARDING CHANGING IT TO LYRICA. WILL ENDORSE TO AM RN. RIGHT FOOT WOUND IS C/D/I AND OPEN TO AIR. PT WITH NO OTHER COMPLAINS OVERNIGHT.
--- NOTE | 2021-06-27 17:42 | NUR ---
AM ASSESSMENT I AGREE WITH AND WAS PRESENT DURING THE STUDENT RN MIKE'S AM ASSESSMENT, AND HAVE REVIEWED AND AGREE WITH HER DOCUMENTATION ON THIS PATIENT
--- NOTE | 2021-06-27 18:10 | NUR ---
SHIFT SUMMARY PT IS A/O X 4. CALM AND COOPERATIVE WITH CARE. IND IN ROOM. NO ACUTE EVENTS T/O DAY. VSS. TRAMADOL GIVEN X 2 FOR PAIN IN BLE. WOUND RLE REMAINED C/D/I. PT NOTIFIED TLAANG OF WANTING TO SWITCH FROM GABAPENTIN TO LYRICA. NO ORDERS RECIVED AT THIS TIME. AWAITING PLACMENT.
--- NOTE | 2021-06-28 04:00 | NUR ---
PT A/OX4, VERY PLEASANT AND HAPPY BECAUSE HIS GABAPENTIN GOT CHANGED TO LYRICA. WOUND TO RIGHT FOOT SCABED AND OPEN TO AIR. PT INDEPENDENT IN ROOM. PT WITH NO COMPLAINS THIS SHIFT.
[2021-06-28 04:38] LABS: Hematocrit 41.5 % (37.0-53.0); Hemoglobin 12.5 g/dL (13.5-17.5); Mean Corpuscular HGB 23.6 pg (26.0-34.0); Mean Corpuscular HGB Conc 30.1 g/dL (31.5-36.5); Mean Corpuscular Volume 78 fL (80-100); Mean Platelet Volume 9.8 fL (9.1-12.4); Platelet Count 254 K/mm3 (150-400); RDW Coefficient Variation 18.4 % (11.7-14.2); RDW Standard Deviation 51.9 fL (35.1-46.3); White Blood Cell Count 7.18 K/mm3 (4.00-11.30)
[2021-06-28 04:59] LABS: Albumin, Blood 3.5 g/dL (3.4-5.0); Anion Gap 6 mmol/L (6-16); Blood Urea Nitrogen 34 mg/dL (8-24); Bun/Creatinine Ratio 32.1 (12.0-20.0); CHOL/HDL RATIO 3.8; CO2, Blood 32 mmol/L (21-32); Calcium, Blood 9.8 mg/dL (8.5-10.1); Chloride, Blood 101 mmol/L (98-108); Cholesterol 186 mg/dL (50-200); Creatinine, Blood 1.06 mg/dL (0.60-1.20); Glomerular Filtration Rate 78 (60-); Glucose, Blood 93 mg/dL (70-99); HDL Cholesterol 49 mg/dL (>39); LDL/HDL RATIO 2.4; Low Density Lipoprotein Chol 116 mg/dL (0-110); Potassium, Blood 4.5 mmol/L (3.5-5.5); Sodium, Blood 139 mmol/L (136-145); Triglycerides 105 mg/dL (30-160); Very Low Density Lipoprot Chol 21 mg/dL (6-32)
--- NOTE | 2021-06-28 18:12 | NUR ---
SHIFT SUMMARY: PT A/O X 4 IND IN ROOM. PT REPORTED NAUSEA IN THE AFTERNOON AND ZOFRAN GIVEN WHICH RESOLVED NAUSEA. NO ACUTE CHANGES THROUGHOUT SHIFT. PT EATING DINNER AND WATCHING TV AT THIS TIME AND DENIES ANY OTHER CONCERNS OR NEEDS. WILL REPORT TO GIOVANNY ARMAS.
--- NOTE | 2021-06-29 06:04 | NUR ---
SHIFT SUMMARY PT IS A 65 Y/O MALE, ADMITTED FOR R FOOT ULCER, POST R FOOT METATARSAL AMPUTATION. HE IS A&O X 4, INDEPENDENT IN THE ROOM. PT WAS MEDICATED ONCE FOR CHRONIC PAIN WITH PRN TRAMADOL. NO C/O NAUSEA OR SOB. VITAL SIGNS STABLE. NO ACUTE CHANGES IN PT CONDITION NOTED DURING THE NIGHT. WILL CONTINUE TO MONITOR AND TREAT PER EMAR UNTIL HAND OFF TO DAY SHIFT RN.
--- NOTE | 2021-06-29 16:29 | NUR ---
NO ACUTE CHANGES THIS SHIFT. PATIENT INDEPENDENT IN ROOM. CALM AND COOPERATIVE WITH CARE AND CALLS APPROPRIATELY FOR ASSISTANCE. TRAMADOL GIVEN X2 THIS SHIFT TO TREAT FOOT PAIN. CONTINUES TO AWAIT PLACEMENT.
--- NOTE | 2021-06-30 05:35 | NUR ---
SHIFT SUMMARY NO ACUTE CHANGES THIS SHIFT. AOX4. VSS. REPORTS 4/10 PAIN IN BILAT FEET, DENIES THE NEED FOR ANY MEDICATION, STATES PAIN LEVEL TOLERABLE. R FOOT HAS DRY SCAB WHERE WOUND USE TO BE, OPEN TO AIR, NO DRAINAGE, C/D/I, NO DISCOLORATION. DENIES N/V OR DYSPNEA. AWAITING PLACEMENT. IND IN RM. ABLE TO MAKE NEEDS KNOWN. WILL MONITOR.
--- NOTE | 2021-06-30 08:00 | NUR ---
PT PLEASANT COOP A/O X3. DENIES PAIN AT THIS TIME. WILL CALL WHEN NEEDS. H/R REG, NO MURMER NOTED. NO TELE. LUNGS CLEAR, RESP EASY, UNLABORED. ON R.A. BT X4 LAST BM YEST PER PT. VOIDS INDEPENDANT TO BATHROOM. BOTH FEET NO TOES. SMALL WOUNDS FRANCISCA, CDI. PT STATES WAS HOMELESS AND STATES GOT ACUNA BITE. BED IN LOW POSITION, CALL LITE IN REACH, CALLS APPROP
--- NOTE | 2021-06-30 18:32 | NUR ---
PT CONTINUES TO BE AMBULATORY. PLEASANT AND COOP. NO BLEEDING NOTED. PENDING PLACEMENT. ENJOYS COFFEE. GOT TO SIT AND VISIT FOR A FEW MINUTES WITH PT. STATES FEELS GETTING BETTER. BED IN LOW POSITION, CALL LITE IN REACH, CALLS APPROP
--- NOTE | 2021-07-01 05:11 | NUR ---
SHIFT SUMMARY NO ACUTE CHANGES THIS SHIFT. AOX4. VSS. REPORTS 5/ BILAT FEET T/O DAY, STATES HIS NEUROPATHY PAIN HAS BEEN DIFFICULT TO CONTROL SINCE SWITCHING TO LYRICA FROM GABAPENTIN, WILL RELAY INFO TO ONCOMING NURSE. PENDING PLACEMENT. CALL LIGHT IN REACH & PT ABLE TO MAKE NEEDS KNOWN.
--- NOTE | 2021-07-01 17:42 | NUR ---
shift summary pt independent in room. napping on and off through day. medicated for discomfort this morning and required education on pain scale. when asked what was an acceptable pain level he said 0 but reported he hasn't been pain free since toes were amputated that its not likely he will ever be completely pain free and the goal is relief of pain that allows him to completed daily adl's and moved about somewhat comfortably. rated acceptable pain relief at 2. no new plans for discharge as yet.
--- NOTE | 2021-07-02 05:44 | NUR ---
SHIFT SUMMARY 65 YR M ADMITTED ON 05/20/21 FOR R FOOT ULCER. FULL CODE. NO ACUTE CHANGES THIS SHIFT. PT C/O PAIN IN HIS FEET AND WAS MEDICATED PER EMAR. HE SLEPT FOR MOST OF THE SHIFT SO THIS NURSE HAD LITTLE INTERACTION WITH HIM. HE IS INDEPENDANT IN THE ROOM AND ASKED THAT HIS DOOR BE KEPT SHUT.
--- NOTE | 2021-07-02 16:17 | NUR ---
Patient immediately tells me that he is confused about why he is still in the hospital and what the delay is in placement. I tell him I will look into the delay.
--- NOTE | 2021-07-02 17:47 | NUR ---
SHIFT SUMMARY PT INDEPENDENT IN TO BATHROOM USING FWW FOR STABILITY. MEDICATED FOR PAIN TWICE. SCABS TO R FOOT INTACT AND DRY. OPEN TO AIR. APPETITE GOOD AND EATING MOST OF MEALS. NO CHANGE TODAY DURING SHIFT.
--- NOTE | 2021-07-03 05:13 | NUR ---
SHIFT SUMMARY 65 YR M ADMITTED ON 05/20/21 FOR RIGHT FOOT ULCER THAT WAS REVASCULARIZED IN MAY. FULL CODE. NO ACUTE CHANGES THIS SHIFT. PT C/O PAIN IN HIS FEET AND WAS GIVEN PAIN MEDS PER EMAR. HE IS AMBULATORY AND INDEPENDANT IN THE ROOM. HE IS [LEASANT AND COOPERATIVE AND MOSTLY KEEPS TO HIMSELF.
--- NOTE | 2021-07-03 17:31 | NUR ---
SHIFT SUMMARY SHOWER TAKEN THIS AFTERNOON. REPORTS COUGH THE LAST FEW DAYS. K PAD BROUGHT TO ROOM DUE TO PT REPORTING PAIN TO BACK AFTER HIS BED WAS REPLACED YESTERDAY. FOUND USING IT FOR HIS FEET THIS EVENING AND STATED HIS FOOT PAIN AT A 3 WITH THE HEAT. NO CHANGES FOR THE DAY.
--- NOTE | 2021-07-04 06:30 | NUR ---
SHIFT SUMMARY 65 YR M ADMITTED ON 05/20/21 FOR RIGHT FOOT ULCER THAT WAS REVASCULARIZED ON 05/11/21. FULL CODE. NO ACUTE CHANGES THIS SHIFT. PT IS PLEASANT AND COOPERATIVE AND MOSTLY KEEPS TO HIMSELF IN HIS ROOM. PAIN MEDS GIVEN PER EMAR. PT IS CURRENTLY AWAITING PLACEMENT.
--- NOTE | 2021-07-04 10:45 | NUR ---
Patient is sitting up in bed and alert. Pt immeiately tells me that he is frustrated about feeling trapped in the hospital and that it is affecting his mood. I explain about the heroic work that the care managers are doing on his behalf and the facilities they are looking into both far and wide. I also revisit the obstacles of his alcohol abuse and criminal record that hinder the process. Pt states that he is aware of the issues and appreciates the efforts but is still struggling with the longevity of the situation. We talk about ways to retain hope, keep ones mind and spirits positive and the importance of keeping his body up and moving. I normalize his frustration, reinforce helpful attitudes and perspectives and provide companionship and prayer. Patient responds well and shows signs of an elevated mood. I will continue to remain available.
--- NOTE | 2021-07-04 18:42 | NUR ---
SHIFT SUMMARY - PT AOX4, NO ACUTE EVENTS T/O SHIFT. PT COMPLAINED OF 7/10 LOWER BACK PAIN AND NEUROPATHIC PAIN EARLY IN THE SHIFT. PRN TRAMADOL WAS GIVEN WHICH WHICH BROUGHT HIS BACK PAIN TO 2/10 BUT HE WAS STILL STRUGGLING WITH BLE NEUROPATHIC PAIN. PT STATES GABAPENTIN HELPED HIS NEUROPATHY BETTER THAN LYRICA WHICH WAS STARTED 06/30. THE DOCTOR HAD DOUBLED HIS DOSE OF LYRICA ON 07/03 AND WANTS TO WAIT 2 MORE DAYS TO SEE IF PT'S PAIN IMPROVES BEFORE CHANGING MEDICATIONS. PT REQUESTS TRAMADOL WHEN IT'S AVAILABLE Q6 AND IT HELPS BRING HIS NEUROPATHIC PAIN FROM 5/10 TO 3/10. PT IS INDEPENDANT IN THE ROOM.
--- NOTE | 2021-07-05 07:35 | NUR ---
PT BP THIS MORNING 91/45 ON RECHECK 100/50, PT SLEEPING ASYMPTOMATIC. PT GIVEN TRAMADOL ONCE DURING SHIFT FOR PAIN. PT WITH NO OTHER COMPLAINS.
--- NOTE | 2021-07-05 18:41 | NUR ---
SHIFT SUMMARY- PT ALERT AND ORIENTED, INDEPENDENT IN THE ROOM. PT HAD A FULL SHOWER TODAY WITH A LINNEN CHANGE, PT HAS HAD NO ACUTE CHANGE TODAY AND CONTINUES TO AWAIT PLACEMENT. WILL CTM AND PASS ON TO NIGHT RN IN BEDSIDE REPORT.
--- NOTE | 2021-07-06 05:46 | NUR ---
PATIENT A/OX4, CONTINUES TO HAVE PAIN TO BILAT FEET AND PER PT WORSE AT TIPS. MEDICATED PER APR. NO NEW CHANGES NOTED. PT ABLE TO SLEEP THROUGHOUT THE NIGHT.
--- NOTE | 2021-07-06 17:32 | NUR ---
SHIFT SUMMARY- PT PAIN APPEARS TO BE MUCH BETTER TODAY, HIS DEMENOR HAS IMPROVED, HE IS MORE CONVERSATIONAL AND SEEMS NEARLY PHOTO LAB MANAGER, ONLY 1 DOSE OF TRAMADOL WAS GIVEN TODAY AND THAT WAS LATER IN THE SHIFT. PT HAS HAD NO ACUTE CHANGES TODAY. PT CURRENTLY SITTING UP IN BED CALL LIGHT IN REACH NO S&S OF DISTRESS. WILL CTM AND PASS ON IN BEDSIDE REPORT TO NIGHT RN.
--- NOTE | 2021-07-07 04:12 | NUR ---
PT A/OX4 INDEPENDENT IN THE ROOM. PT ABLE TO SLEEP THROUGHOUT THE NIGHT WITHOUT ANY NEW COMPLAINS. PAIN TO BILAT FEET CONTINUES TO BE PRESENT DID RECEIVE 1 DOSE OF TRAMADOL. NO OTHER CONCERNS AT THIS TIME.
--- NOTE | 2021-07-07 11:01 | NUR ---
PATIENT COMFORTABLE IN ROOM. DENIES ANY PAIN.
--- NOTE | 2021-07-07 11:36 | NUR ---
PT COMPLAINING OF A 5/10 PAIN IN FEET FROM NEUROPATHY. GAVE HIM A DOSE OF TRAMADOL AND BROUGHT HIM COFFEE.
--- NOTE | 2021-07-07 14:32 | NUR ---
CHECKED ON PATIENT. DENIES ANY PAIN. BROUGHT IN COFFEE. HE APPEARED TO BE COMFORTABLE AND CONTENT.
--- NOTE | 2021-07-07 18:22 | NUR ---
SHIFT SUMMARY: PATIENT ALERT AND ORIENTED X4. HE HAS BEEN VERY PLEASANT THROUGHOUT THE SHIFT. HAS CALLED APPROPRIATELY AND ABLE TO LET HIS NEEDS KNOWN. HE HAS ASKED FOR TRAMADOL ONCE DURING THE SHIFT FOR PAIN IN HIS FEET/NEUROPATHY. HE IS SCHEDULED TO HAVE AN INTERVIEW TOMORROW WITH THE [facility] AT 1100 PER [place] INSPECTOR NOTES. WILL CONTINUE TO MONITOR UNTIL THE END OF THE SHIFT.
--- NOTE | 2021-07-07 18:38 | NUR ---
REVIEWED NOTES AND ASSESSMENT DOCUMENTATION RECORDED BY YASSINE, STUDENT NURSE AND I AGREE WITH HER CHARTING ON THIS PATIENT.
--- NOTE | 2021-07-08 10:25 | NUR ---
PATIENT COMPLAINING OF 4/10 FOOT/NEUROPATHY PAIN. TRAMADOL WAS GIVEN TO PATIENT FOR PAIN.
--- NOTE | 2021-07-08 16:03 | NUR ---
SHIFT SUMMARY: PATIENT ALERT AND ORIENTED X4. HE WAS SUPPOSED TO HAVE AN INTERVIEW WITH AN ASSISTED LIVING FACILITY BUT DID NOT HAPPEN TODAY. STILL TRYING TO SORT OUT DETAILS. HE HAS CALLED APPROPRIATELY FOR PAIN MEDICATION AND TO SET UP FOR A SHOWER. HE HAD CLOTHES PROVIDED TO HIM TODAY. HE WAS IN PAIN EARLIER IN THE SHIFT. PROVIDED HIM WITH TRAMADOL AND HAS NOT COMPLAINED SINCE. CALL LIGHT IN REACH.
--- NOTE | 2021-07-08 17:48 | NUR ---
REVIEWED NOTES AND ASSESSMENTS DOCUMENTED BY YASSINE, STUDENT NURSE AND I AGREE WITH HER CHARTING ON THIS PATIENT.
--- NOTE | 2021-07-09 05:43 | NUR ---
PT A/OX4, VERY PLEASANT AND ABLE TO MAKE NEEDS KNOW. PT WITH NO CHANGES THIS SHIFT. AWAITING PLACEMENT.
--- NOTE | 2021-07-09 15:21 | NUR ---
SHIFT SUMMARY: PATIENT ALERT AND ORIENTED X4. HE HAS COMPLAINED ONCE OF A 4/10 PAIN FROM THE NEUROPATHY. STATED HE WOULD LIKE TO GO BACK TO GABAPENTIN IN PLACE OF THE LYRICA HE THINKS IT WORKED BETTER. HE HAS BEEN PLEASANT AND COOPERATIVE. ABLE TO MAKE HIS NEEDS KNOWN. STILL AWAITING PLACEMENT. CALL LIGHT IN REACH.
--- NOTE | 2021-07-09 18:02 | NUR ---
REVIEWED NOTES AND ASSESSMENTS CHARTED BY YASSINE, STUDENT NURSE AND AGREE WITH HER DOCUMENTATION FOR THIS PATIENT.
--- NOTE | 2021-07-10 07:15 | NUR ---
SHIFT SUMMARY PATIENT ALERT AND ORIENTED. MEDICATD PER EMAR FOR SLEEP AND PAIN. NO ACUTE ISSUES NOTED OVERNIGHT. CALL LIGHT WITHIN REACH. REPORT GIVEN TO ONCOMING RN.
--- NOTE | 2021-07-10 15:36 | NUR ---
Patient sitting on EOB in the dark. Pt is tearful about being told that he needs to find his own solution to his housing. He states that was already unsuccessful on his own and knows that he can't manage his medical care needs outside of a technician terminal and repeater care facility. He says that realizes that it is his own choices that put himself in this situation but he grieves his trajectory outside of getting the assistance that he needs. He tells me that he does not have adaquate shoes or clothes to live without housing and does not have sufficient means, because of his disability, to manage his medical needs. He feels as if he is in "limbo" waiting for a "horrible" next step. I console pt, remind him of the good care he has had for nearly 2 mos and the extensive efforts that have been made to find LTC placement, and provide gentle adoption counselor and companionship. Pt responds well and shows signs of a slight elevation in mood. I discuss case with nabil Oropeza, who explains the depths to which the team has gone to solve his placement issues. The barriers were again pointed out and the impasse that we find ourselves in. I will continue to remain available.
--- NOTE | 2021-07-10 16:43 | NUR ---
SHIFT SUMMARY PATIENT IS ALERT AND ORIENTED. PATIENT IS PLEASENT AND COOPERATIVE WITH CARE. PATIENT HAS HAD NO ACUTE EVENTS THIS SHIFT. VITAL SIGNS REVIEWED. PATIENT HAS HAD NO COMPLAINTS OF SOB, NAUSEA, OR VOMITTING THIS SHIFT. MEDICATED PER EMAR FOR FOOT PAIN. BED IN LOCKED AND LOWEST POSITION. CALL LIGHT IN PLACE WILL MONITOR UNTIL SHIFT CHANGE.
--- NOTE | 2021-07-11 04:12 | NUR ---
SHIFT SUMMARY: PT IS A/OX4. PT DID NOT HAVE ANY C/O THIS SHIFT. HE IS INDEPENDENT IN THE ROOM AND IS CURRENTLY AWAITING PLACEMENT TO A SNF. HE DOES USE HIS CALL LIGHT FOR NEEDS AND WE'LL CONTINUE TO MONITOR THE REST OF THE SHIFT.
--- NOTE | 2021-07-11 17:00 | NUR ---
SHIFT SUMMARY PATIENT MEDICATED FOR PAIN X2. PATIENT DENIES NAUSEA AND SHORTNESS OF BREATH. PATIENT IS IND IN ROOM. NEW PHOTOS OF WOUND TO RIGHT FOOT IN CHART, MOSTLY HEALED. LEASE PURCHASE DRIVER MET WITH PATIENT. PATIENT IS EATING AND DRINKING WELL. PATIENT IS PLEASANT AND COOPERATIVE WITH CARE. PATIENT IS AWAITING PLACEMENT.
--- NOTE | 2021-07-12 05:36 | NUR ---
SHIFT SUMMARY: PT IS A/OX4. HE DID NOT HAVE ANY C/O THIS SHIFT AND REMAINS INDEPENDENT IN HIS ROOM. HE'S A VERY PLEASANT MAN AND COOPERATIVE WITH CARE. NO CHANGES TO REPORT THIS SHIFT.
--- NOTE | 2021-07-12 17:31 | NUR ---
SHIFT SUMMARY PATIENT DENIES PAIN, NAUSEA, AND SHORTNESS OF BREATH. PATIENT INDEPENDENT IN ROOM. PATIENT ABLE TO AMBULATE WITH FWW, BUT NOT LONG DISTANCES. PATIENT EATING AND DRINKING WELL. PATIENT IS PLEASANT AND COOPERATIVE WITH CARE. PATIENT IS AWAITING PLACEMENT.
--- NOTE | 2021-07-13 06:29 | NUR ---
SHIFT SUMMARY: PT IS A/OX4. THE PT DID HAVE SOME C/P PAIN THIS SHIFT AND WAS MEDICATED VIA EMAR, OTHERWISE NO OTHER CHANGES TO REPORT THIS SHIFT.
--- NOTE | 2021-07-13 17:34 | NUR ---
SHIFT SUMMARY PATIENT DENIES PAIN, NAUSEA, AND SHORTNESS OF BREATH. PATIENT IS INDEPENDENT IN ROOM. PATIENT IS EATING AND DRINKING WELL. PATIENT IS VERY PLEASANT AND COOPERATIVE WITH CARE. PATIENT IS AWAITING PLACEMENT.
--- NOTE | 2021-07-14 06:14 | NUR ---
SHIFT SUMMARY: NO SIGNIFICANT EVENTS ON NOC. SLEPT WELL THROUGH THE NIGHT. AWAITING AFC PLACEMENT. SEE SHIFT ASSESSMENT FOR FURTHER DETAILS.
--- NOTE | 2021-07-14 18:42 | NUR ---
SHIFT SUMMARY PT SITTING UP AWAKE DURING SHIFT REPORT THIS AM. PT IS A&O, PLEASANT AND CO-OP WITH CARE. CONTINUES TO WAIT FOR PLACEMENT. WAS HOPING TO D/C TODAY. MEDICATED FOR C/O PAIN NEEDED PER EMAR. INDEPENDENT IN RM AND TO BTHRM. ABLE TO SHOWER SELF TODAY. DR HINES HERE TO K ON PT THIS AFTERNOON. NO NEW ORDERS. CALL LT IN REACH.
--- NOTE | 2021-07-15 04:00 | NUR ---
SHIFT SUMMARY: NO SIGNIFICNAT EVENTS ON NOC. PATIENT COMPLIANT WITH CARE, ASSESSMENT, AND MEDICATIONS. SLEPT WELL THROUGH THE NIGHT. SEE SHIFT ASSESSMENT FOR DETAILS. AWAITING PLACEMENT.
--- NOTE | 2021-07-15 16:06 | NUR ---
Patient is sitting on EOB and alert. Pt talks about feeling forgotten and is wondering if suitable housing can be achieved for him. He fears being in a housing unsecure environment with no way to manage his medical needs. I check with Radha his School Bus Dispatcher and she assures me that his case is being worked on a current applications are pending for placement. I relay this information to the pt and voices his appreciation on having some bit of information. I provide therapeutic listening and companionship. Pt responds well and shows signs of having increase in hope.
--- NOTE | 2021-07-15 17:58 | NUR ---
SHIFT SUMMARY NO ACUTE CHANGES TO PRESENT THIS SHIFT. CONTINUES TO WAIT FOR PLACEMENT WHEN BED AVAILABLE. UP INDEPENDENTLY IN RM AND TO BTHRM. TOOK A SHOWER AGAIN TODAY, INDEPENDENTLY. MEDICATED PER EMAR FOR C/O PAIN TO FEET. SPIRITUAL CARE CIVIL ENGINEERING MANAGER HERE TO VISIT THIS AFTERNOON. SITTING UP TO EOB, EATING DINNER AT THIS TIME. DENIES FURTHER NEEDS. CALL LT IN REACH.
--- NOTE | 2021-07-16 04:38 | NUR ---
SHIFT SUMMARY PT COMPLAINED OF SOME BILATERAL FOOT PAIN. MEDICATED PER EMAR. NO OTHER ACUTE CHANGES TO PT CONDITION. PT SLEEPING OFF AND ON THROUGHOUT THE NIGHT. CALL LIGHT WITHIN REACH.
--- NOTE | 2021-07-16 15:30 | NUR ---
AOX4, INDEPENDENT, CAN MAKE NEEDS KNOWN, COOPERATIVE WITH MEDICATION AND CARE. CURRENTLY DENIES PAIN. NO ACUTE CHANGES. CONTINUES TO WAIT FOR PLACEMENT WITH BED BECOMES AVAILABLE. CALL-LIGHT IN REACH; BED IN LOWEST POSITION.
--- NOTE | 2021-07-17 05:26 | NUR ---
SHIFT SUMMARY NO ACUTE CHANGES TO PT CONDITION. PT COMPLAINED OF PAIN ONCE IN SHIFT AND WAS MEDICATED PER EMAR. PT HAS NO COMPLAINTS CURRENTLY. CALL LIGHT IS WITHIN REACH.
--- NOTE | 2021-07-17 16:22 | NUR ---
SHIFT SUMMARY PATIENT IS ALERT AND ORIENTED X4. PATIENT HAS BEEN PLEASENT AND COOPERATIVE WITH CARE. PATIENT IS IND IN ROOM. PATIENT HAS HAD NO ACUTE EVENTS THIS SHIFT. PATIENT HAS HAD NO COMPLAINTS OF SOB, NAUSEA OR VOMITTING THIS SHIFT. PATIENT REPORTS SOME LEG PAIN, MEDICATED PER EMAR. BED IN LOCKED AND LOWEST POSITION. CALL LIGHT IN PLACE. WILL MONITOR UNTIL SHIFT CHANGE.
--- NOTE | 2021-07-18 05:19 | NUR ---
PT IS A/O INDEPENDENT IN ROOM, AWAITING PLACEMENT. MEDICATED FOR FOOT PAIN THIS SHIFT, FOOT WOUND HEALED WITH SCAB.
--- NOTE | 2021-07-18 18:37 | NUR ---
PT INDEPENDENT, CAN MAKE NEEDS KNOWN, COOPERATIVE WITH MEDICATION AND CARE. CURRENTLY DENIES PAIN. NO ACUTE CHANGES. CONTINUES TO WAIT FOR PLACEMENT WHEN BED BECOMES AVAILABLE. CALL-LIGHT IN REACH. BED IN LOWEST POSITION.
--- NOTE | 2021-07-18 22:00 | NUR ---
PT RESTING QUIETLY. NO NEEDS AT THIS TIME. CALL LT IN REACH.
--- NOTE | 2021-07-19 00:30 | NUR ---
PT RESTING QUIETLY. CALL LT IN REACH.
--- NOTE | 2021-07-19 02:14 | NUR ---
PT RESTING QUIETLY. NO NEEDS AT THIS TIME. CALL LT IN REACH.
--- NOTE | 2021-07-19 03:59 | NUR ---
PT RESTING QUIETLY. CALL LT IN REACH.
--- NOTE | 2021-07-19 04:11 | NUR ---
SHIFT SUMMARY: NO ACUTE CHANGES. PT A/O. INDEP IN RM. ON RA. NO COMPLAINTS OF PAIN OR NAUSEA. AWAITING PLACEMENT FOR LTC. WILL CONTINUE TO PROVIDE CARE UNTIL SHIFT REPORT TO ONCOMING NURSE.
--- NOTE | 2021-07-19 17:56 | NUR ---
AOX4, INDEPENDENT, CAN MAKE NEEDS KNOWN, COOPERATIVE WITH MEDICATION AND CARE. STATED PAIN EARLIER TODAY, PRN ULTRAM GIVEN WITH GOOD RELIEF. NO ACUTE CHANGES. CONTINUES TO WAIT FOR PLACEMENT. CALL-LIGHT WITHIN REACH; BED IN LOWEST POSITION.
--- NOTE | 2021-07-20 05:47 | NUR ---
PT IS A/O IND IN ROOM, HEALED FOOT AMPUTATIONS, AWAITING PLACEMENT HE IS HOMELESS.
--- NOTE | 2021-07-20 16:33 | NUR ---
INDEPENDENT, CAN MAKE NEEDS KNOWN, COOPERATIVE WITH MEDICATION AND CARE. STATED PAIN EARIER TODAY, PRN ULTRAM GIVEN WITH GOOD RELIEF. NO ACUTE CHANGES. CONTINUES TO WAITH FOR PLACEMENT. CALL-LIGHT WITHIN REACH; BED IN LOWEST POSITION.
--- NOTE | 2021-07-21 05:35 | NUR ---
PT IS A/O, IND; AWAITING PLACEMENT DUE TO HOMELESSNESS. HEALED LEFT FOOT PARTIAL AMPUTATION. HX OF ND AND REVASCULARIZATION.
--- NOTE | 2021-07-21 13:33 | NUR ---
Patient tells me about his frustrations about feeling like his whole world is on hold and it is taking its toll mentally and emotionally. He also shares his concerns about not having perscription shoes. He is feeling insecure about his future and not having any way to walk without the special shoes that he needs is of great worry to him. I ask pt's Record Pressman Radha about placement and she tells me of two facilities that maybe real possibilities and I ask pt's RN about perscription shoes and she states that she will ask his doctor next visit. I relay this information to the pt which appears to have a stabilizing affect. I will continue to remain available to patient.
--- NOTE | 2021-07-22 05:49 | NUR ---
PT IS A/O, HO,ELESS NEEDING PLACEMENT AT DISCHARGE. MEDICATED THIS SHIFT FOR PAIN FROM BACK AND PARTIAL FOOT AMPUTATION.
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
--- NOTE | 2021-07-23 04:37 | NUR ---
SHIFT SUMMARY PT HAD AN UNEVENTFUL NIGHT. PT REPORTED EARLY IN SHIFT THAT HE WAS HAVING A DIFFICULT TIME SLEEPING BUT WHEN CHECKED ON SHORTLY AFTER PT APPEARED TO BE SLEEPING AND HAS SLEPT THE REMAINDER OF THE NIGHT. MEDICATED FOR PAIN TO R FOOT AND BACK X 1 W/ 1 TABLET ULTRAM. VITAL SIGNS STABLE. PT CONTINUES TO AWAIT PLACEMENT.
--- NOTE | 2021-07-24 05:35 | NUR ---
SHIFT SUMMARY PT HAD AN UNEVENTFUL NIGHT. WITH CONTINUED NEUROPATHIC PAIN TO BLE. MEDICATED PER APR. PER REPORT CARE MANAGEMENT ALSO WORKING ON ASSISTING PT WITH OBTAINING NEW SHOES ONE WAS STOLEN PRIOR TO HOSPITALIZATION. AWAITING PLACEMENT.
--- NOTE | 2021-07-25 06:38 | NUR ---
SHIFT UPDATE OVERNIGHT PT C/O BACK PAIN AND STATES THAT THIS SEEMED TO HAVE STARTED WHEN THE HOSPITAL CHANGED BEDS. OTHERWHISE CONTINUES WITH C/O NEUROPATIC PAIN. MEDICATED PER APR. NO ACUTE CHANGES NOTED THIS SHIFT.
--- NOTE | 2021-07-25 16:54 | NUR ---
SHIFT SUMMARY NO ACUTE CHANGES WITH THE PATIENT TODAY. PATIENT DID COMPLAIN OF SOME BACK PAIN POSSIBLY ASSOCIATED WITH THEIR NEW BED. PATIENT HAS BEEN CALLING APPROPRIATELY. NO DISTRESS NOTED AT THIS TIME. PATIENT CURRENTLY IN BED WATCHING TV. CALL LIGHT WITHIN REACH.
--- NOTE | 2021-07-26 05:49 | NUR ---
UNISAW OPERATOR SUMMARY PT STILL AWAITING PLACEMENT. FULL CODE. INDEPENDENT IN THE ROOM WITH THE URINAL. HE IS ALERT AND ORIENTED X4, PLEASANT. PT MEDICATED X2 FOR CHRONIC PAIN IN HIS BACK. HE SAYS THAT HE DID NOT SLEEP WELL DUE TO THE NEW BED IN THE ROOM AND THE CHANGE FROM TRAZADONE TO REMERON.
--- NOTE | 2021-07-26 17:17 | NUR ---
PT IS A/OX4, PLEASANT AND COOPERATIVE. THE PT IS UP IND IN HIS ROOM. THE PT APPEARS TO BE BREATHING EASILY ON RA AT THIS TIME. THE PT WAS MEDICATED FOR BACK PAIN X 2 SO FAR THIS SHIFT. THE PT SHOWERED TODAY. CALL LIGHT IN REACH. WILL CONTINUE TO MONITOR AND ASSESS FOR CHANGES
--- NOTE | 2021-07-27 06:31 | NUR ---
SNAPPER ON SUMMARY PT AWAITING PLACEMENT. MEDICATED X2 FOR CHRONIC PAIN. HE HAS BEEN INDEPENDENT IN THE ROOM WITH THE URINAL. ALERT AND ORIENTED X4. HEALING WOUND TO RIGHT FOOT FROM AMPUTATION - WITHOUT SIGN OF INFECTION.
--- NOTE | 2021-07-27 17:22 | NUR ---
PT IS A/OX3, PLEASANT AND COOPERATIVE, THE PT IS UP IND IN HIS ROOM. THE PT DENIED PAIN SO FAR THIS SHIFT. PT WAS GIVEN LOZENGERS FOR SORE THROAT. THE PT APPEARS TO BE BREATHING EASILY ON RA AT THIS TIME.CALL LIGHT IN REACH. VSS. WILL CONTINUE TO MONITOR AND ASSESS FOR CHANGES
--- NOTE | 2021-07-28 00:38 | NUR ---
07/27/212039 PT SITTING UP IN BED, REPORTS PAIN IN LE'S OF 05/18. WILL MEDICATE AND EVAL FOR EFFECT. BILAT AMP TOES, HEALED, SCANT REDNESS, SCABS ON R. NO OTHER APPARENT SIGNS OF DISTRESS. CALL LIGHT IS IN REACH.
--- NOTE | 2021-07-28 01:04 | NUR ---
07/27/212324 PT HAD REQUESTED THAT HIS HOME DOSE OF TRAZADONE BE ORDERED SO HE COULD HAVE THAT AT BEDTIME INSTEAD OF THE REMERON, OKAYED THE ORDER. WENT TO CHECK ON PT TO SEE IF HE WANTED IT BUT HE WAS ASEEP. NO APPARENT SIGNS OF DISTRESS. CALL LIGHT IS IN REACH.
--- NOTE | 2021-07-28 04:48 | NUR ---
0400 PT LYING IN BED, EYES CLOSED, WAKES EASILY TO VERBAL STIMULI. NO APPARENT SIGNS OF DISTRESS. CALL LIGHT IS IN REACH.
--- NOTE | 2021-07-28 04:48 | NUR ---
0200 PT LYING IN BED, EYES CLOSED, APPEARS TO BE RESTING. BREATHING IS EVEN, UNLABORED. NO APPARENT SIGNS OF DISTRESS. CALL LIGHT IS IN REACH.
--- NOTE | 2021-07-28 04:49 | NUR ---
PT IS AAO X 4, ON RA AT 92%. BILAT TOE AMP THAT ARE HEALED, L HAS SCANT REDNESS, R HAS SOME SCABS WITH SCANT REDNESS. PT REPORTS LE PAIN, GOT TRAMADOL AT HS.
--- NOTE | 2021-07-28 06:03 | NUR ---
PT LYING IN BED, EYES CLOSED, APPEARS TO BE RESTING. BREATHING IS EVEN, UNLABORED. NO APPARENT SIGNS OF DISTRESS. CALL LIGHT IS IN REACH. NO OTHE CHANGES THIS SHIFT.
--- NOTE | 2021-07-28 11:21 | NUR ---
PATIENT REPORTS A COUGH FOR THE PAST COUPLE OF DAYS RESULTING IN YELLOW SPUTUM. HE ALSO REPORTS POOR QUALITY OF SLEEP. HE EASILY FALLS ASLEEP, BUT HAS TROUBLE STAYING ASLEEP. HE REPORTS THE BED IS GIVING HIM SOME INTERMITTENT BACK PAIN. NEUROPATHY IN BILATERAL LOWER LEGS HAS INCREASED OVER THE PAST WEEK.
--- NOTE | 2021-07-28 14:51 | NUR ---
Pt is sitting on EOB and alert. Pt tells me that he has met with [facility] staff and is planning to d/c on Wednesday. I talk with pt at length about the need to have goals and strategies for living healthier or he will end up back where he was. Pt appears to be reluctant to say or commit to any sort of plan for moving forward in life and away from the tabacco and alcohol that has controlled his life for decades. We talks about the few times he had some degree of success of clean and sober living and the ingredients that worked during those seasons and we also talk about healthy activities that he could be engaged in. Pt agrees to ponder these ideas but does not agree to any specific plan, treatment or goal. I will continue to assist pt with a d/c plan for his emotional/spiritual health.
--- NOTE | 2021-07-29 04:07 | NUR ---
SHIFT SUMMARY A/OX4, IND IN ROOM. C/O CHRONIC BACK PAIN, MEDICATED PER EMAR. SLEPT T/O SHIFT. VSS, NO ACUTE CHANGES AT THIS TIME. BED IN LOWEST POSITION WITH CALL LIGHT IN REACH. WILL CONTINUE TO MONITOR AND REPORT TO ONCOMING RN.
--- NOTE | 2021-07-29 09:42 | NUR ---
YANA CHIANG CAME TO VISIT THE PATIENT YESTERDAY, IN ANTICIPATION OF PLACEMENT. PATIENT STATED HE WAS LEAVING WEDNESDAY. TODAY I SPOKE WITH PRUNE WASHER WHO STATES THAT THIS MAY OR MAY NOT HAPPEN AND SAID [facility] IS COMING TODAY TO ASSESS PATIENT FOR PLACEMENT WELL. NOTHING IS SET IN STONE YET.
--- NOTE | 2021-07-29 10:39 | NUR ---
PROVIDER UPDATED ABOUT CRACKLES THROUGH OUT LUNGS AND PRODUCTIVE COUGH WITH FRAUSTO SPUTUM. CHEST XRAY ORDERED. IMAGING HERE NOW.
--- NOTE | 2021-07-29 12:58 | NUR ---
Patient tells me that a [facility] staff member came to visit him today and that he is still hoping to d/c on Wednesday to [facility]. I provide pt with information he requested about the foot and ankle doctor that may have provided him with his perscription shoes. We also discuss the struggles he is having with constantly living in a state of uncertainty about what facility he may d/c to. Pt admits the situation he is in currently is far better than how he was living prior to his hospitalization. I will continue to assist pt with positive ways to move his life in a meaningful way for him. Pt responds well to counter sales person visits and shows signs that he gains a greater sense of peace and insights about life.
--- NOTE | 2021-07-29 14:11 | NUR ---
CHEST XRAY WAS COMPLETED TODAY D/T FRAUSTO SPUTUM AND CRACKLES IN LUNGS. CHEST XRAY SHOWS NO EVIDENCE OF PNEUMONIA-
[2021-07-29 15:24] LABS: BASOPHILS ABSOLUTE AUTO 0.02 K/mm3 (0.00-0.23); BASOPHILS PERCENT AUTO 0 % (0-2); EOSINOPHILS ABSOLUTE AUTO 0.39 K/mm3 (0.00-0.68); EOSINOPHILS PERCENT AUTO 6 % (0-6); Hemoglobin 12.2 g/dL (13.5-17.5); IMMATURE GRAN ABSOLUTE AUTO 0.02 K/mm3 (0.00-0.10); IMMATURE GRAN PERCENT AUTO 0 % (0-1); LYMPHOCYTES PERCENT AUTO 25 % (21-46); MONOCYTES ABSOLUTE AUTO 0.73 K/mm3 (0.16-1.47); MONOCYTES PERCENT AUTO 12 % (4-13); Mean Corpuscular HGB 23.6 pg (26.0-34.0); Mean Corpuscular HGB Conc 30.5 g/dL (31.5-36.5); Mean Corpuscular Volume 77 fL (80-100); Mean Platelet Volume 9.9 fL (9.1-12.4); NEUTROPHILS ABSOLUTE AUTO 3.59 K/mm3 (1.96-9.15); NEUTROPHILS PERCENT AUTO 57 % (41-73); Platelet Count 241 K/mm3 (150-400); RDW Coefficient Variation 18.4 % (11.7-14.2); Red Blood Cell Count 5.17 M/mm3 (4.30-5.90); White Blood Cell Count 6.35 K/mm3 (4.00-11.30)
[2021-07-29 15:39] LABS: Bun/Creatinine Ratio 27.6 (12.0-20.0); Calcium, Blood 9.6 mg/dL (8.5-10.1); Creatinine, Blood 1.05 mg/dL (0.60-1.20); Potassium, Blood 4.3 mmol/L (3.5-5.5)
[2021-07-29 15:55] LABS: International Normalized Ratio 0.99; Prothrombin Time Results 10.4 Sec (9.7-11.5)
--- NOTE | 2021-07-29 16:00 | NUR ---
PATIENT TO HAVE REVASCULARIZATION REPEATED IN THE MORNING SO 1800 DOSE OF XARELTO WAS HELD. HE IS TO BE NPO AFTER MIDNIGHT TONIGHT FOR HIS PROCEDURE IN THE MORNING.
--- NOTE | 2021-07-29 16:11 | NUR ---
PATIENT SPOKE WITH A REP FROM [facility] TODAY. PLACEMENT IS PENDING AND NO SURE LOCATION IS KNOWN. PATIENT SHOWERED TODAY AND ATE ALL MEALS. A SCAN OF THE PATIENTS FOOT REVEALED THAT BLOOD FLOW ISN'T EFFECIENT. HE WILL HAVE REVASCULARIZATION DONE IN AM. NPO AFTER MIDNIGHT. BLOOD THINNERS HELD. HE STILL HAS A COUGH PRODUCING SOME FRAUSTO SPUTUM. NO OTHER COMPLAINTS THIS SHIFT.
[2021-07-29 16:37] LABS: Influenza A, PCR NEGATIVE (NEGATIVE); Influenza B, PCR NEGATIVE (NEGATIVE); Resp Syncytial Virus, PCR NEGATIVE (NEGATIVE)
[2021-07-29 17:20] LABS: SARS-Cov-2 (COVID-19) PCR, MMC POSITIVE (NEGATIVE)
--- NOTE | 2021-07-29 17:38 | NUR ---
PATIENT WAS SWABBED FOR COVID DUE TO THE PROCEDURE HE IS SCHEDULED TO HAVE IN THE MORNING. TEST IS POSITIVE FOR COVID. DR. SAWYER UPDATED AND IS AWARE OF DX. DR. SAWYER STATED THAT THEY MAY STILL DECIDE TO DO THE PROCEDURE SO THE PATIENT SHOULD REMAIN NPO AFTER MIDNIGHT INCASE THAT IS THE DECISION.
--- NOTE | 2021-07-30 05:48 | NUR ---
PT IS A/O, HX OF PARTIAL FOOT AMPUTATION AND REVASCULARIZATION. NPO AT THIS TIME FOR ANOTHER REVASCULARIZATION TODAY. MEDICATED FOR FOOT PAIN THIS SHIFT.
--- NOTE | 2021-07-30 15:51 | NUR ---
TRANSFER NOTE PT WAS TAKEN TO POLICE JUDGE AT 1515. REPORT CALLED AND GIVEN TO DWAIN FOSTER. BELONGINGS TAKEN DOWN TO PCU 6. VITALS AND PT DENIES PAIN. ANXIOUS TO EAT.
--- NOTE | 2021-07-30 18:01 | NUR ---
PT TRANSFERRED FROM MEDICAL FLOOR FOR REVASCULARIZATION. LEFT GROIN SITE WITHOUT SIGNS OF NEW BLEEDING OR SWELLING. VSS AT THIS TIME. ON RA. BED TILTED SO THAT PT IS ABLE TO WATCH TV. NSR ON TELE WITH PVCS. MEDICATED FOR PAIN. NO ACUTE NEEDS AT THIS TIME.
--- NOTE | 2021-07-31 06:22 | NUR ---
SHIFT SUMMARY ASSUMED CARE OF PT AROUND 1900. PT IS A/OX4. HEART SOUNDS REGULAR, LUNG SOUNDS HAVE FINE CRACKLES AT THE BASES. PT NEEDED SUPPLEMENTAL OXYGEN T/O THE NIGHT WHILE SLEEPING. PT WAS TITRATED TO 4L NC. GROIN SITE WNL, PT DENIES PAIN. PT C/O PAIN IN HIS BACK, MEDICATED PER EMAR. PT HAD A HARD PERICO SLEEPING LAST DUE TO INCREASED VITAL CHECKS AND BACK PAIN.
--- NOTE | 2021-07-31 11:35 | NUR ---
Pt is lying in bed and alert. Pt tells me that he had an angioplasty the prior day and that he is concerned that his new COVID diagnosis may hinder his potential d/c. Pt talks about his concern that he may lose his foot if this last attempt to increase circulation doesn't help. I provide therapeutic listening, anxiety containment and prayer. Pt responds well and shows signs of increased peace. I will continue to remain available to patient and family.
--- NOTE | 2021-07-31 16:44 | NUR ---
TRANSFER UPDATE PT TRANSFERED TO MEDICAL FLOOR AT 1635. PT TRANSFERED VIA PERSONAL MOTORIZED SCOOTER AND ON RA. PT BELONGINGINGS IN BAGS AND TRANSFERED TO MEDICAL FLOOR ROOM AT TIME OF TRANFER. PT CHART ALSO TRANSFERED TO MEDICAL FLOOR RN A TIME OF TRANSFER. REPORT GIVEN AT BEDSIDE TO MEDICAL FLOOR RN. PT WAS ABLE TO TRANSFER SELF TO AND FROM MOTORIZED SCOTTER, TOLERATED WELL.
--- NOTE | 2021-07-31 17:28 | NUR ---
SHIFT SUMMARY PT RETURNED FROM PCU POST REVASCULARIZATION AND IS DOING WELL. HE IS UP AN AMBULATING AND AXO 4. HE HAS BEEN EATING AND DRINKING FINE. DOES NO TCOMPLAIN OF SOB OR PAIN. BED IN LOWEST POSITION AND CALL LIGHT IN REACH.
--- NOTE | 2021-08-01 05:11 | NUR ---
SHIFT ASSESSMENT AOX4. VSS. SPO2 >90% ON RA. DENIES ANY COVID S/SX. DENIES N/V OR DYSPNEA. POST OP DAY #2 FOR REVASCULARIZATION, R FOOT IS: WARM, PINK, HAS DRY SCAB, PEDAL PULSE FAINT/THREADY, COOLNESS NOTED TO WHERE TOES AMPUTATED. REPORTS 4/10 R ANKLE PAIN, STATES IT'S NEW, MEDICATED 1X c TRAMADOL. IND IN RM. CALL LIGHT IN REACH & ABLE TO MAKE NEEDS KNOWN. WILL MONITOR.
--- NOTE | 2021-08-01 16:55 | NUR ---
SHIFT SUMMARY PT HAS BEEN INDEPENDENT IN THE ROOM. HE STATES NO LOCALIZED PAIN TO HIS INSCISION SITE, BUT IS HAVING INCREASED PAIN IN HIS RIGHT FOOT. HE HAS BEEN INSTRUCTED TO PROP HIS FOOT UP WHEN IT BECOMES UNCMFORTABLE AND TO REST IT HE HAS BEEN UP AND DANGLING HIS FOOT INHIS ROOM FREQUENTLY. HE CONTINUES TO SHOW NO COVID LKE SYMPTOMS AND STATES THAT EXCEPT FOR FOOT PAIN HE FEELS WELL. BED IN LOWEST POSITION AND CALL LIGHT IN REACH
--- NOTE | 2021-08-02 04:12 | NUR ---
SHIFT SUMMARY ADMITTED FOR RT FOOT ULCER. FULL CODE. ENHANCED PRECAUTIONS FOR COVID+. DIFFICULT PLACEMENT CHALLENGES. IR CONSULT IS DR MIRAMONTES. REVASCULARIZATION PERFORMED 07/30/21. TRAMADOL GIVEN WITH TYLENOL FOR PAIN. HE IS ON XARELTO. HE HAS NEUROPATHY. BILATERAL TRANSMETATARSAL AMPUTATIONS. HE IS HOMELESS. INDEPENDENT IN ROOM. ISOLATION IS COMPLETED ON 08/06/21.
--- NOTE | 2021-08-02 15:00 | NUR ---
SHIFT SUMMARY NO ACUTE CHANGES TO PRESENT THIS SHIFT. PT CONTINUES TO WAIT PLACEMENT. INDEPENDENT IN RM WITH SCOOTER. USING URINAL AT BS NEEDED. MEDICATED FOR C/O PAIN TO FEET; MAINLY R FOOT. BL TOES AMPUTATED TO BOTH FEET. A&O, ABLE TO MAKE NEEDS KNOWN. CURRENTLY COVID + IN ISOLATION. DENIES FURTHER NEEDS AT THIS TIME.
--- NOTE | 2021-08-03 04:17 | NUR ---
SHIFT SUMMARY ADMITTED FOR RT FOOT ULCER. FULL CODE. ENHANCED PRECAUTIONS FOR COVID+. ISOLATION ENDS 08/06. AWAITING PLACEMENT, PROBLEMATIC PLACEMENT. INDEPENDENT. A&O X4, ON RA. RX WHOLE W/H2O. REGULAR DIET. ON XARELTO. REVASCULARIZATION PERFORMED ON 10/30/21. LEFT GROIN ACCESS. DR. MIRAMONTES IS IR CONSULT. TRAMADOL & TYLENOL PRN FOR PAIN. CONTINENT. HX: BILAT TRANSMETATARSAL AMPUTATIONS, HOMELESS, PVD, NEUROPATHY, FROSTBITE.
--- NOTE | 2021-08-03 15:24 | NUR ---
SHIFT SUMMARY NO ACUTE CHANGES TO PRESENT THIS SHIFT. PT IS A&O, PLEASANT AND CO-OP WITH CARE. MEDICATED PER EMAR AND PT REQUEST FOR C/O R FOOT PAIN; R FOOT RECENT SX FOR REVASCULARIZATION. PT REQUESTING SHOWER; SHOWER CURTIAN AND CHAIR OBTAINED FOR WHEN PT IS READY. REQUESTED MENU FOR DINNER AND BREAKFAST; OBTAINED AND RETURNED TO KITCHEN PER PT'S REQUESTS. DENIES FURTHER NEEDS AT THIS TIME. CALL LT IN REACH.
--- NOTE | 2021-08-04 04:36 | NUR ---
SUMMARY NO ACUTE CHANGES NOTED THROUGH THE NIGHT. PT REMAINS A&O X4, VSS, PAIN MANAGED PER EMAR. HE WAS ABLE TO SLEEP MOST OF THE NIGHT. CALL LIGHT IN REACH, MARIANO.
--- NOTE | 2021-08-04 13:21 | NUR ---
Patient tells me about his uneventful weekend and how he continues to try to stay positive while enduring a filler leaf cutter long hospital stay. He talks about the frustration of how COVID may add to the on going placement challenges. I normalize his frustrations, and provide gentle summer counselor, positive insights and companionship (as well as retrieve coffee for pt). Pt responds well and shows signs of an elevated mood.
--- NOTE | 2021-08-04 17:10 | NUR ---
SHIFT SUMMARY- PT PLEASANT. A&O X3. PT C/O PAIN, MEDICATED PER EMAR. VSS. APPETITE GOOD. PT WAITING PLACEMENT. PT RESTING COMFORTABLY WITH CALL LIGHT, AND SIDE RAILS UP.
--- NOTE | 2021-08-05 04:31 | NUR ---
SHIFT SUMMARY: PT IS A/OX4. HE IS INDEPENDENT IN THE ROOM; PT USES CALL LIGHT FOR ALL NEEDS. THE PT DID HAVE C/O OF RT FOOT PAIN AND WAS MEDICATED W/ PRN TRAMADOL. HE DID NOT HAVE ANY OTHER C/O. WE'LL CONTINUE TO MONITOR.
--- NOTE | 2021-08-05 16:06 | NUR ---
SHIFT SUMMARY- PT VSS. PT INDEPENDANT IN ROOM. NO C/O OF PAIN DURING SHIFT. PT APPETITE GOOD. PT SHOWERED AND IS RESTING COMFORTABLY IN BED WITH CALL LIGHT IN REACH.
--- NOTE | 2021-08-06 03:49 | NUR ---
SHIFT SUMMARY: PT IS A/OX4. HE DID HAVE C/O OF PAIN PRIOR TO BED AND WAS MEDICATED WITH PRN TRAMADOL. HE DOES STATE THAT THE ULTRAM DOSE IS NOT EFFECTIVE IN HIS PAIN MANAGEMENT. HE DID NOT HAVE ANY OTHER COMPLAINTS AND WE'LL CONTINUE TO MONITOR.
--- NOTE | 2021-08-06 17:52 | NUR ---
SHIFT SUMMARY- PT VSS. PT INDEPENDANT IN ROOM. PT APPETITE EXCELLENT. PT C/O PAIN, NOTIFIED DR OF CURRENT PAIN MANAGEMENT "NOT HELPING" DR CHANGE PAIN MANAGEMENT, SEE EMAR. MEDICATED ACCORDINGLY. PT COUGHING WITH PHELM (GREEN) AFEBILE DURING SHIFT. LUNGS CLEAR. PT RESTING WITH CALL LIGHT IN REACH.
--- NOTE | 2021-08-07 06:08 | NUR ---
SHIFT SUMMARY PATIENT ALERT AND ORIENTED. MEDICATED PER EMAR FOR PAIN. HAD NO COMPLAINTS OF SHORTNESS OF BREATH. NO ACUTE ISSUES NOTED OVERNIGHT. CALL LIGHT WITHIN REACH. REPORT GIVEN TO ONCOMING RN.
--- NOTE | 2021-08-07 16:21 | NUR ---
SHIFT SUMMARY PT A&OX4 AND IN PLEASENT MOOD T/O SHIFT. SALES AND SERVICE OFFICER ASSISTED PT W/ SHOWER THIS SHIFT. C/O PAIN MEDICATED PER EMAR. AWAITING PLACEMENT @ THIS TIME. VSS. CALL LIGHT W/IN REACH. IND. IN ROOM USING FWW. DROPLET PRECAUTION FOR COVID + UNTIL SAT. RA.
--- NOTE | 2021-08-08 04:32 | NUR ---
SHIFT SUMMARY ADMITTED FOR RT FOOT ULCER. FULL CODE. ENHANCED PRECAUTIONS FOR COVID+. ISOLATION ENDS WEDNESDAY AT MIDNIGHT. INDEPENDENT. MEDICATED FOR PAIN THIS SHIFT. BLE METATARSAL AMPUTATIONS. REVASCULARIZATION X2 W/CONSULT DR. MIRAMONTES. ON RA. REGULAR DIET. HX: HOMELESS, NEUROPATHY, FROSTBITE, PAD, ETOH.
--- NOTE | 2021-08-08 16:50 | NUR ---
SHIFT SUMMARY PT A&O X4 AND IN PLEASENT MOOD T/O SHIFT. IND IN ROOM. RA. C/O PAIN MEDICATED PER EMAR. VSS. CALL LIGHT W/IN REACH. TOLERATING PO INTAKE WELL. AWAITING PLACEMENT @ THIS TIME.
--- NOTE | 2021-08-09 04:50 | NUR ---
SHIFT SUMMARY: PT IS A/OX4. HE IS NO LONGER ON COVID PRECAUTIONS. INDEPENDENT IN ROOM. VSS. PLACEMENT. HE HAS PRN 5MG NORCO FOR PAIN. HE STATES THIS HIS PAIN IS BETTER MANAGED WITH THE SWITCH TO THE NORCO. WE'LL CONTINUE TO MONITOR.
--- NOTE | 2021-08-09 18:27 | NUR ---
DAY SHIFT SUMMARY 65 YR OLD MALE ADMITTED WITH RT FOOT ULCER. REG DIET, FULL CODE, RA, MEDS WHOLE, A/O X4 INDEPENDENT IN ROOM. WAITING PLACEMENT. CALL LIGHT WITHIN REACH AND ABLE TO CALL APPROPRIATE. NO ACUTE CHANGES THIS SHIFT.
--- NOTE | 2021-08-10 04:38 | NUR ---
SHIFT SUMMARY: PT IS A/OX4. VSS. PAIN IS MANAGED WITH PRN NORCO. THE PT DOES HAVE NEW C/O RT SHOULDER PAIN THAT STARTED 3-4 DAYS AGO, OTHERWISE NO OTHE C/O. HE IS INDEPENDENT IN THE ROOM AND USES THE CALL BUTTOM FOR NEEDS. WE'LL CONTINUE TO MONITOR.
--- NOTE | 2021-08-10 08:56 | NUR ---
Patient doing well today, reports moderate pain, PRN Cades given, effective for pain. Nicotine patch placed on right/shoulder. Vitals stable.
--- NOTE | 2021-08-10 10:53 | NUR ---
PATIENT STATES THAT RIGHT LOWER EXTREMITY NEUROPATHY IS PRETTY SEVERE. HE SAYS THAT IT SEEMS TO BE WORSE SINCE THE PROCEDURE TO REVASCULARIZE. HE STATES BOTH NUMBNESS AND TINGLEING OCCUR. GABAPENTIN AT 900MG DOESN'T SEEM TO HELP. HE SAYS THE ONLY THING THAT REALLY WORKS TO SUBDUE THE SENSATION IS NARCO.
--- NOTE | 2021-08-10 16:52 | NUR ---
PATIENT STATES HIS NEUROPATHY HAS INCREASED SINCE HIS LAST REVASCULARIZATION PROCEDURE. HE HAS NO OTHER CONCERNS TODAY. MOOD IS GOOD. PATIENT WAITING FOR PLACEMENT.
--- NOTE | 2021-08-11 04:07 | NUR ---
SHIFT SUMMARY: PT IS A/OX4. PRN NORCO AVAILABLE FOR PAIN MANAGEMENT. INDEPENDENT IN THE ROOM. NO IV--MD AWARE. PLACEMENT D/T HOMELESSNESS. USES CALL LIGHT FOR ALL NEEDS; WE'LL CONTINUE TO MONITOR.
--- NOTE | 2021-08-11 18:50 | NUR ---
RECEIVED REPORT AND ASSUMED CARE OF THE PT. HE IS SITTING IN BED, WATCHING TV, A&O. DENIES ANY NEEDS AT THIS TIME. CALL LIGHT IN REACH.
--- NOTE | 2021-08-12 05:51 | NUR ---
SHIFT SUMMARY: AURA IS A&OX4. VSS, BP NOTED ON THE LOW SIDE THIS AM, PT DENIES ANY DIZZINESS OR LIGHTHEADEDNESS. HE IS TOLERATING PO INTAKE WELL, INDEPENDENT IN THE ROOM, AND REPORTS ADEQUATE PAIN CONTROL WITH ONE TABLET OF NORCO. HE DOES REPORT THAT HE TAKES 200 MG OF TRAZODONE AT BASELINE, BUT THE MEDICATION CLAIM HISTORY SHOWS 100 MG. HE ALSO REPORTED THAT HE TAKES 1200 MG OF GABAPENTIN THREE TIMES A DAY, WHICH IS SUPPORTED BY THE CLAIM HISTORY. ENCOURAGED PT TO DISCUSS WITH THE ATTENDING PHYSICIAN. PT DID STATE THAT HE WAS TOLD THAT GABAPENTIN IS HARD ON THE KIDNEYS. PT AGREED THAT PRESERVING KIDNEY FUNCTION IS IMPORTANT. HE DID STATE THAT HE HAS AN AREA ALONG THE PREVIOUS INCISION ON HIS RIGHT FOOT WHICH IS NUMB. ENCOURAGED PT TO REPORT ANY NEW OR WORSENING SYMPTOMS. HE IS SITTING UP IN BED WATCHING TV, CALL LIGHT IN REACH. WILL REPORT TO DAY SHIFT RN.
--- NOTE | 2021-08-12 16:08 | NUR ---
Patient tells me that he continues to wait for placement and that at times he feels stuck. We talk about his hobbies and the things he loved to do growing up. Pt laughs and enjoys telling stories. He appears to lift up his own spirits as talks. We also talk about the possible assisted living facilities that are on the table and what is good about them. Pt is encouraged by any light at the end of the tunnel. I will continue to offer companionship and gentle addictions counselor assistant as I remain available.
--- NOTE | 2021-08-12 17:58 | NUR ---
SHIFT SUMMARY: PT A/O X 4 IND IN ROOM, PLEASANT AND COOPERATIVE WITH CARE. PT SHOULDER PAIN AND NEUROPATHY PAIN MANAGED WITH NORCO TODAY. PT REQUESTING HIS TRAZODONE BE INCREASED BUT NOC RN VERBALLY REPORTED HE SLEPT THROUGH THE NIGHT WELL. ADVISED PT TO DISCUSS WITH PROVIDER. PT HAS HAD NO OTHER COMPLAINTS OR CONCERNS.
--- NOTE | 2021-08-13 04:26 | NUR ---
SHIFT SUMMARY ADMITTED FOR RT. FOOT ULCER. FULL CODE. REVASCULARIZATION X2 SINCE ADMIT. BILAT TRANSMETATARSAL AMPUTATIONS. AWAITING PLACEMENT. PREVIOUSLY HOMELESS. INDEPENDENT IN ROOM. A&O X4. PRN PAIN MEDICATION GIVEN THIS SHIFT. REGULAR DIET. HX OF NEUROPATHY, PVD. NO NEW CONCERNS THIS SHIFT
--- NOTE | 2021-08-13 17:39 | NUR ---
SHIFT SUMMARY PATIENT MEDICATED X2 FOR PAIN. PATIENT DENIES NAUSEA AND SHORTNESS OF BREATH. PATIENT IS INDEPENDENT IN ROOM. PATIENT HAS NO IV ACCESS. PATIENT IS EATING AND DRINKING WELL. PATIENT HAD A PHONE INTERVIEW TODAY WITH THE CLIMATOLOGY PROFESSOR. PATIENT IS AWAITING PLACEMENT. PATIENT IS PLEASANT AND COOPERATIVE WITH CARE.
--- NOTE | 2021-08-14 03:45 | NUR ---
SHIFT SUMMARY PT HAD AN UNEVENTFUL NIGHT. REQUESTED MELATONIN IN ADDITION TO TRAZADONE THIS EVENING. ORDER OBTAINED BUT PT SLEEPING ONCE AVAILABLE. PT SLEPT OFF AND ON. REPORTED PAIN TO BILATERAL FEET. MEDICATED X 1 W/ 1 TAB NORCO. NO ACUTE CHANGES THIS SHIFT. VITAL SIGNS STABLE. PT CONTINUES TO AWAIT PLACEMENT.
--- NOTE | 2021-08-14 12:57 | NUR ---
Pt again voices that he is "just hanging out" hoping to be placed soon. He is discouraged again today by the long wait for safe d/c. He completely understands the barriers that everyone faces and why his case is so complicated. Nonetheless, it is challenging to be room-bound for 3 mos. We talk about ways to succeed with the gains he has made with no cigarettes and alcohol but pt states that alcohol is good for him because it "lowers blood pressure and numbs his Neuropathy." I help explore other ways to be healthy and better places to put his energy. I provide companionship, therapeutic listening and gentle counseling psychologist. Pt responds well and shows signs of an elevated mood. I will continue to remain available.
--- NOTE | 2021-08-14 18:18 | NUR ---
NO CHANGES TO REPORT DURING THIS SHIFT. PATIENT WALKED SHORT DISTANCE IN THE HALLWAY AFTER HIS WALKER WAS ADJUSTED TO FIT A BIT BETTER. MELATONIN IS ON THE MAR FOR TONIGHT.
--- NOTE | 2021-08-15 05:13 | NUR ---
SHIFT SUMMARY PT APPEARED TO SLEEP BETTER THIS EVENING WITH MELATONIN IN ADDITION TO TRAZADONE AT BEDTIME. CONTINUES TO REPORT PAIN TO BILATERAL FEET, MEDICATED PER EMAR. NO ACUTE CHANGES THIS SHIFT. PT AWAITING PLACEMENT.
[2021-08-15 10:37] LABS: SARS-Cov-2 (COVID-19) Antigen Negative (NEGATIVE)
[2021-08-15] MEDS ORDERED: ASPI81CH PO (11:22)
[2021-08-15] MEDS ORDERED: ATOR10 PO (11:24)
[2021-08-15] MEDS ORDERED: Nicoderm Cq1 EAC1 TOP (11:24)
--- NOTE | 2021-08-15 16:38 | NUR ---
DISCHARGE PATIENT DISCHARGED TODAY AT 1631. HE WAS PICKED UP BY [facility] FOR TRANSPORTATION TO [place] [id number] WHERE HE WILL STAY FOR TONIGHT. HE IS GOING TO PICK HIS MEDICATION UP FROM [facility], WHERE HIS SCRIPTS WERE FAXED. PATIENT EDUCATION WAS PROVIDED WITH THE REST OF HIS DISCHARGE INSTRUCTIONS WHICH WERE REVIEWED BEFORE HE LEFT. HE WAS GIVEN INFORMATION ABOUT THE [facility], TO HELP WITH POST DISCHARGE LIVING. PATIENT RODE HIS SCOOTER OUT ALONG SIDE OF THE ROOF CEMENT AND PAINT MAKER HELPER WHEN LEAVING THE HOSPITAL. HE BROUGHT THE BELONGINGS HE WANTED WITH HIM, AND LEFT A FEW ITEMS HERE FOR US TO THROW AWAY, INCLUDING A DIRTY BLANKET AND A FEW DIRTY CLOTHING ITEMS.
== END 2021-08-15 16:46 | disposition home or self-care (01) | DRG 252 ==
LOC: ER 13:09 → SURS 21:32 → MEDS 21:32 → PCU 05-21 16:39 → MEDS 05-23 18:11 → PCU 07-30 16:16 → MEDS 07-31 16:53
PROVIDERS: Emergency Medicine; Internal Medicine; Radiology Diagnostic Radiology; ADMIT Internal Medicine
PROC: HZ2ZZZZ Detoxification Services for Substance Abuse Treatment (ICD-10-PCS; principal; 2021-05-20)
PROC: 047H3DZ Dilation of Right External Iliac Artery with Intraluminal Device, Percutaneous Approach (ICD-10-PCS; 2021-06-21)
PROC: 047K3ZZ Dilation of Right Femoral Artery, Percutaneous Approach (ICD-10-PCS; 2021-06-21)
PROC: 047P3ZZ Dilation of Right Anterior Tibial Artery, Percutaneous Approach (ICD-10-PCS; 2021-06-21)
PROC: 047N3Z1 Dilation of Left Popliteal Artery using Drug-Coated Balloon, Percutaneous Approach (ICD-10-PCS; 2021-08-05)
PROC: 047Q3Z1 Dilation of Left Anterior Tibial Artery using Drug-Coated Balloon, Percutaneous Approach (ICD-10-PCS; 2021-08-05)
PROC: 047S3Z1 Dilation of Left Posterior Tibial Artery using Drug-Coated Balloon, Percutaneous Approach (ICD-10-PCS; 2021-08-05)
PROC: 8E0ZXY6 Isolation (ICD-10-PCS; 2021-08-08)
DX: I70.234 Atherosclerosis of native arteries of right leg with ulceration of heel and midfoot (principal); I21.A1 Myocardial infarction type 2; J96.01 Acute respiratory failure with hypoxia; U07.1 COVID-19; J44.1 Chronic obstructive pulmonary disease with (acute) exacerbation; F10.10 Alcohol abuse, uncomplicated; Z20.822 Contact with and (suspected) exposure to COVID-19; L97.411 Non-pressure chronic ulcer of right heel and midfoot limited to breakdown of skin; F17.210 Nicotine dependence, cigarettes, uncomplicated; Z59.00 Homelessness unspecified; F32.A Depression, unspecified; G89.29 Other chronic pain; M54.9 Dorsalgia, unspecified; G62.9 Polyneuropathy, unspecified; Z86.711 Personal history of pulmonary embolism; Z89.431 Acquired absence of right foot; Z89.432 Acquired absence of left foot; Z79.01 Long term (current) use of anticoagulants; Z79.899 Other long term (current) drug therapy
CPT/HCPCS: 0241U; 36415; 37220; 37224; 37228; 37229; 37232; 71045; 73620; 75625; 75716; 75774; 76937; 80048; 80053; 80061; 80069; 81003; 82550; 82553; 83735; 84484; 85025; 85027; 85347; 85610; 87426; 93005; 93010; 93306; 93925; 94640; 94664; 94760; 94762; 96374; 96375; 97110; 97112; 97116; 97162; 97165; 97166; 97530; 97535; 99152; 99153; 99285-25; A9270; C1714; C1725; C1760; C1769; C1876; C1887; C1894; C9803; J1644; J2250; J2270; J2405; J3010; J7030; J7040; J7050; Q9967

== ENCOUNTER 2021-12-04 15:19 | Emergency (ER) | payer OTHER ==
[~2021-12-04] VITALS: Ht 170.2 cm; Wt 79.4 kg
[~2021-12-04 15:19] MED LIST changes: +ATOR10 PO; +FLUTICASONE-SA1 EAC9 INH; +NEURONTIN600 MG PO; +Nicoderm Cq1 EAC1 TOP
[2021-12-04] MEDS ORDERED: AZIT250 (18:30)
[2021-12-04] MEDS ORDERED: Ventolin/Prove6.7 GM (18:30)
[2021-12-04] MEDS ORDERED: TRAZ100 PO (18:30)
[2021-12-04 19:29] LABS: BASOPHILS ABSOLUTE AUTO 0.02 K/mm3 (0.00-0.23); BASOPHILS PERCENT AUTO 0 % (0-2); EOSINOPHILS PERCENT AUTO 3 % (0-6); Hematocrit 46.3 % (37.0-53.0); Hemoglobin 14.6 g/dL (13.5-17.5); IMMATURE GRAN ABSOLUTE AUTO 0.03 K/mm3 (0.00-0.10); IMMATURE GRAN PERCENT AUTO 0 % (0-1); LYMPHOCYTES ABSOLUTE AUTO 1.44 K/mm3 (0.84-5.20); LYMPHOCYTES PERCENT AUTO 21 % (21-46); MONOCYTES ABSOLUTE AUTO 0.59 K/mm3 (0.16-1.47); MONOCYTES PERCENT AUTO 9 % (4-13); Mean Corpuscular HGB 24.5 pg (26.0-34.0); Mean Corpuscular HGB Conc 31.5 g/dL (31.5-36.5); Mean Corpuscular Volume 78 fL (80-100); Mean Platelet Volume 9.3 fL (9.1-12.4); NEUTROPHILS ABSOLUTE AUTO 4.68 K/mm3 (1.96-9.15); NEUTROPHILS PERCENT AUTO 67 % (41-73); Platelet Count 244 K/mm3 (150-400); RDW Coefficient Variation 20.1 % (11.7-14.2); RDW Standard Deviation 54.4 fL (35.1-46.3); Red Blood Cell Count 5.97 M/mm3 (4.30-5.90); White Blood Cell Count 6.96 K/mm3 (4.00-11.30)
[2021-12-04 19:50] LABS: Albumin, Blood 3.8 g/dL (3.4-5.0); Albumin/Globulin Ratio 0.9 (0.8-1.8); Bilirubin, Total 0.5 mg/dL (0.1-1.0); Bun/Creatinine Ratio 17.2 (12.0-20.0); Calcium, Blood 9.5 mg/dL (8.5-10.1); Creatinine, Blood 0.93 mg/dL (0.60-1.20); Globulin, Blood 4.3 g/dL (2.2-4.0); Potassium, Blood 4.2 mmol/L (3.5-5.5); Total Protein, Blood 8.1 g/dL (6.4-8.2)
== END 2021-12-04 21:20 | disposition home or self-care (01) ==
LOC: ER 15:19
PROVIDERS: Emergency Medicine
DX: R03.1 Nonspecific low blood-pressure reading (principal); J44.9 Chronic obstructive pulmonary disease, unspecified; I25.2 Old myocardial infarction; F17.210 Nicotine dependence, cigarettes, uncomplicated; M79.605 Pain in left leg; M79.604 Pain in right leg; I73.9 Peripheral vascular disease, unspecified; Z89.422 Acquired absence of other left toe(s); Z89.421 Acquired absence of other right toe(s); Z79.82 Long term (current) use of aspirin; Z79.899 Other long term (current) drug therapy
CPT/HCPCS: 36415; 80053; 84484; 85025; 93005; 93010; 93971; A9270; J1885

== ENCOUNTER 2022-01-14 22:49 | Emergency (ER) | payer OTHER ==
[~2022-01-14] VITALS: Ht 172.7 cm; Wt 90.3 kg
[~2022-01-14 22:49] MED LIST changes: +AZIT250; +Ventolin/Prove6.7 GM
[2022-01-14] MEDS ORDERED: AMOCLA875 PO (23:38)
[2022-01-14] MEDS ORDERED: AZIT250 PO (23:38)
[2022-01-14] MEDS ORDERED: PRED20 PO (23:38)
== END 2022-01-14 23:58 | disposition home or self-care (01) ==
LOC: ER 22:49
DX: J44.1 Chronic obstructive pulmonary disease with (acute) exacerbation (principal); F17.210 Nicotine dependence, cigarettes, uncomplicated
CPT/HCPCS: 71046; A9270; J7512

== ENCOUNTER 2022-02-09 11:58 | Emergency (ER) | payer OTHER ==
[~2022-02-09] VITALS: Ht 170.2 cm; Wt 90.3 kg
[2022-02-09] MEDS ORDERED: FLUT1DIS2 INH (12:27)
[2022-02-09] MEDS ORDERED: BENZ100A PO (13:41)
[2022-02-09] MEDS ORDERED: LEVO750 PO (13:41)
== END 2022-02-09 14:07 | disposition home or self-care (01) ==
LOC: ER 11:58
DX: R05.9 Cough, unspecified (principal); J44.9 Chronic obstructive pulmonary disease, unspecified; G62.9 Polyneuropathy, unspecified; I25.2 Old myocardial infarction; K21.9 Gastro-esophageal reflux disease without esophagitis; F17.210 Nicotine dependence, cigarettes, uncomplicated
CPT/HCPCS: 71046; A9270

== ENCOUNTER 2022-04-18 20:05 | Emergency (ER) | payer OTHER ==
[~2022-04-18] VITALS: Ht 172.7 cm; Wt 81.7 kg
[~2022-04-18 20:05] MED LIST changes: +FLUT1DIS2 INH
[2022-04-18 21:13] LABS: BASOPHILS ABSOLUTE AUTO 0.04 K/mm3 (0.00-0.23); BASOPHILS PERCENT AUTO 0 % (0-2); EOSINOPHILS ABSOLUTE AUTO 0.33 K/mm3 (0.00-0.68); EOSINOPHILS PERCENT AUTO 4 % (0-6); Hemoglobin 14.2 g/dL (13.5-17.5); IMMATURE GRAN ABSOLUTE AUTO 0.03 K/mm3 (0.00-0.10); IMMATURE GRAN PERCENT AUTO 0 % (0-1); LYMPHOCYTES ABSOLUTE AUTO 1.59 K/mm3 (0.84-5.20); LYMPHOCYTES PERCENT AUTO 17 % (21-46); MONOCYTES ABSOLUTE AUTO 1.07 K/mm3 (0.16-1.47); MONOCYTES PERCENT AUTO 11 % (4-13); Mean Corpuscular HGB Conc 30.9 g/dL (31.5-36.5); Mean Corpuscular Volume 78 fL (80-100); Mean Platelet Volume 9.7 fL (9.1-12.4); NEUTROPHILS PERCENT AUTO 67 % (41-73); Platelet Count 317 K/mm3 (150-400); RDW Coefficient Variation 20.2 % (11.7-14.2); RDW Standard Deviation 54.9 fL (35.1-46.3); Red Blood Cell Count 5.91 M/mm3 (4.30-5.90); White Blood Cell Count 9.36 K/mm3 (4.00-11.30)
[2022-04-18 21:36] LABS: Albumin, Blood 3.3 g/dL (3.4-5.0); Albumin/Globulin Ratio 0.8 (0.8-1.8); Bilirubin, Total 0.4 mg/dL (0.1-1.0); Calcium, Blood 9.5 mg/dL (8.5-10.1); Creatinine, Blood 1.11 mg/dL (0.60-1.20); Globulin, Blood 4.2 g/dL (2.2-4.0); Potassium, Blood 4.4 mmol/L (3.5-5.5); Total Protein, Blood 7.5 g/dL (6.4-8.2)
[2022-04-18 22:24] LABS: Influenza A, PCR NEGATIVE (NEGATIVE); Influenza B, PCR NEGATIVE (NEGATIVE); Resp Syncytial Virus, PCR NEGATIVE (NEGATIVE); SARS-Cov-2 (COVID-19) PCR, MMC NEGATIVE (NEGATIVE)
[2022-04-18] MEDS ORDERED: PRED20 PO (22:32)
== END 2022-04-18 22:51 | disposition home or self-care (01) ==
LOC: ER 20:05
PROVIDERS: Student in an Organized Health Care Education/Training Program
DX: J06.9 Acute upper respiratory infection, unspecified (principal); J44.9 Chronic obstructive pulmonary disease, unspecified; F17.210 Nicotine dependence, cigarettes, uncomplicated; Z20.822 Contact with and (suspected) exposure to COVID-19; Z79.899 Other long term (current) drug therapy
CPT/HCPCS: 0241U; 36415; 71046; 80053; 83880; 85025; 94640; 94664; A9270; J7512

== ENCOUNTER 2022-04-24 14:07 | Inpatient (IN) | payer OTHER ==
[~2022-04-24] VITALS: Ht 170.2 cm; Wt 77.1 kg
[2022-04-24 15:16] LABS: BASOPHILS ABSOLUTE AUTO 0.03 K/mm3 (0.00-0.23); BASOPHILS PERCENT AUTO 0 % (0-2); EOSINOPHILS ABSOLUTE AUTO 0.28 K/mm3 (0.00-0.68); EOSINOPHILS PERCENT AUTO 3 % (0-6); Hematocrit 45.8 % (37.0-53.0); IMMATURE GRAN ABSOLUTE AUTO 0.03 K/mm3 (0.00-0.10); IMMATURE GRAN PERCENT AUTO 0 % (0-1); LYMPHOCYTES PERCENT AUTO 17 % (21-46); MONOCYTES ABSOLUTE AUTO 0.75 K/mm3 (0.16-1.47); MONOCYTES PERCENT AUTO 8 % (4-13); Mean Corpuscular HGB 24.1 pg (26.0-34.0); Mean Corpuscular HGB Conc 30.6 g/dL (31.5-36.5); Mean Corpuscular Volume 79 fL (80-100); Mean Platelet Volume 9.4 fL (9.1-12.4); NEUTROPHILS ABSOLUTE AUTO 7.02 K/mm3 (1.96-9.15); NEUTROPHILS PERCENT AUTO 72 % (41-73); Platelet Count 296 K/mm3 (150-400); RDW Coefficient Variation 20.6 % (11.7-14.2); RDW Standard Deviation 55.8 fL (35.1-46.3); Red Blood Cell Count 5.81 M/mm3 (4.30-5.90); White Blood Cell Count 9.71 K/mm3 (4.00-11.30)
[2022-04-24 15:17] LABS: Albumin, Blood 3.4 g/dL (3.4-5.0); Albumin/Globulin Ratio 0.8 (0.8-1.8); Bilirubin, Total 0.6 mg/dL (0.1-1.0); Bun/Creatinine Ratio 14.6 (12.0-20.0); Calcium, Blood 9.5 mg/dL (8.5-10.1); Creatinine, Blood 0.96 mg/dL (0.60-1.20); Globulin, Blood 4.4 g/dL (2.2-4.0); Potassium, Blood 4.4 mmol/L (3.5-5.5); Total Protein, Blood 7.8 g/dL (6.4-8.2)
[2022-04-24 15:19] LABS: Base Excess Venous 9.6 mmol/L; Bicarbonate Venous 30.6 mmol/L (24.0-30.0); PCO2 Venous 62.2 mmHg (38-42); pH Blood Venous 7.36 (7.34-7.37)
--- NOTE | 2022-04-24 20:31 | NUR ---
PT ADMITED FROM ED AT 1830. PT ABLE TO AMBULATE FROM GURNEY TO BED INDEPENDENTLY. PT OREIENTED TO ROOM. CHANDA VICENTE COMPLETED ADMISSION FOR THIS RN. NO C/O PAIN. ABLE TO MAKE NEEDS KNOWN. BELONGINGS PLACED IN ROOM WITH PT. BED IN LOWEST POSITION. REPORT GIVEN TO FOLDING MACHINE OPERATOR NURSE.
--- NOTE | 2022-04-25 18:31 | NUR ---
SHIFT SUMMARY PT MOVING WELL WITH THE WALKER. AOX4. CALLS AND MAKES HIS NEEDS KNOWN. PT HAS BEEN COUGHING T/O THE SHIFT, GIVEN TESSALON CANDELARIA. NO C/O P OR CP. NICOTINE PATCH ORDER OBTAINED AND PLACED ON PT. WILL REPORT TO ONCOMING NURSE.
--- NOTE | 2022-04-26 09:51 | NUR ---
NOTE: PROVIDER, DR. PARISI, NOTIFIED OF VTACH PER TELE STRIP.
[2022-04-26 11:54] LABS: Albumin, Blood 3.4 g/dL (3.4-5.0); Anion Gap 2 mmol/L (6-16); Blood Urea Nitrogen 27 mg/dL (8-24); Bun/Creatinine Ratio 34.4 (12.0-20.0); CO2, Blood 35 mmol/L (21-32); Calcium, Blood 9.7 mg/dL (8.5-10.1); Chloride, Blood 92 mmol/L (98-108); Creatinine, Blood 0.78 mg/dL (0.60-1.20); Glomerular Filtration Rate 98 (60-); Glucose, Blood 200 mg/dL (70-99); Magnesium, Blood 2.5 mg/dL (1.6-2.4); Phosphorus, Blood 2.6 mg/dL (2.5-4.9); Potassium, Blood 4.4 mmol/L (3.5-5.5); Sodium, Blood 129 mmol/L (136-145)
--- NOTE | 2022-04-26 17:07 | NUR ---
SHIFT SUMMARY PT AOX4, COUGHING APPEARS TO HAVE IMPROVED TODAY. PROVIDER WAS GOING TO DISCHARGE TODAY BUT AWAITING ECHO RESULTS. PROVIDER STATED SHE IS GOING TO WAIT UNTIL TOMORROW FOR DISCHARGE AND ECHO RESULTS ARE VIEWED. PT HAS C/O PAIN ONCE AND WAS MEDICATED PER THE EMAR. PT HAD AN O2 EVAL COMPLETED TODAY AND HAS O2 SET UP AT HIS HOME AND A TANK IN HIS ROOM FOR DISCHARGE. PT HAS BEEN MADE AWARE OF THE SITUATION. BED LIGHT IN LOWEST POSITION, CALL LIGHT PLACED WITHIN REACH. WILL REPORT TO ONCOMING NURSE.
[2022-04-27 05:31] LABS: Albumin, Blood 3.4 g/dL (3.4-5.0); Anion Gap 4 mmol/L (6-16); Blood Urea Nitrogen 28 mg/dL (8-24); Bun/Creatinine Ratio 27.7 (12.0-20.0); CO2, Blood 33 mmol/L (21-32); Calcium, Blood 9.6 mg/dL (8.5-10.1); Chloride, Blood 96 mmol/L (98-108); Creatinine, Blood 1.01 mg/dL (0.60-1.20); Glomerular Filtration Rate 82 (60-); Glucose, Blood 156 mg/dL (70-99); Phosphorus, Blood 3.5 mg/dL (2.5-4.9); Potassium, Blood 5.1 mmol/L (3.5-5.5); Sodium, Blood 133 mmol/L (136-145)
--- NOTE | 2022-04-27 17:38 | NUR ---
SHIFT SUMMARY NO ACUTE CHANGES THIS SHIFT. STILL WAITING ON THE ECHO TO BE READ BY THE MOLD BLOWER. HOPEFULLY DISCHARGING TOMORROW. THE PT HAS HAD C/O PAIN AND WAS MEDICATED PER THE EMAR. [facility] HAS ALREADY DELIVERED THE O2 TO HIS HOME AND HIS TRANSPORT O2 IS IN THE ROOM. CALL LIGHT WITHIN REACH, PT IS SITTING AT THE EDGE OF THE BED. WILL REPORT TO ONCOMING NURSE.
[2022-04-28] MEDS ORDERED: Nicoderm Cq1 EAC1 TOP (14:10)
[2022-04-28] MEDS ORDERED: PRED20 PO (14:11)
--- NOTE | 2022-04-28 15:03 | NUR ---
Patient is sitting on the EOB and alert. He tells me about his medical complications and his concerns about discharge due to feeling as if he can't manage on his own. He talks about living out [address] and [facility]. He talks about the many challenges either option creates and how neither are optimal for his new medical needs. We talk about his awareness of his past choices and all the barriers he has to getting into a facility (Alcoholism and criminal record). I normalize his experience and provide therapeutic listening and prayer. Patient responded well and showed signs of increased hope about future placement as his conditions decline.
--- NOTE | 2022-04-28 20:03 | NUR ---
SHIFT SUMMARY: PT A&O X4, PLEASANT, COOPERATIVE AND ABLE TO VOICE NEEDS. PT HAD NO DISCOMFORT OR PAIN DURING THE SHIFT. PT HAD CHRONIC COUGH PRODUCTIVE COUGH WITH SMALL AMOUNT OF THICK WHITE TO YELLOW SPUTUM. PT RECEVIED TESLAN PEALS FOR COUGH, SULUMEDROL AND ALBUTEROL BREATHING TREATMENTS DURING THE SHIFT. PT ABLE TO AMBULATE TO THE RESTROOM WITH SBA WITH FWW. PT HAS [facility] ORD[facility] HOME O2 SETUP AND DELIVERED, WAITING ON TRANSPORTATION. PT IN BED WITH CALL LIGHT WITHIN REACH.
--- NOTE | 2022-04-28 20:55 | NUR ---
PT D/C'D AT 2049: ASSESSMENT COMPLETED, HS MEDS RECIEVED AND IV WAS REMOVED. INSTRUCTIONS WERE PROVIDED AND BELONGINGS WERE IN HIS POSSESSION UPON D/C. PT LEFT ON HIS PERSONAL MOTORIZED SCOOTER W/GROUNDS RESTORATION SPECIALIST ASSIST. [facility] TRANSPORT [facility] AND [facility] VERIFIED THEY WERE AWARE HE WAS EN ROUTE AND WOULD BE ARRIVING LATE. PT KNEW TO GO TO AFTER HOURS ENTRANCE. NO S/S DISTRESS UPON D/C.
== END 2022-04-28 20:56 | disposition home or self-care (01) | DRG 189 ==
LOC: ER 14:07 → MEDS 16:04 → ER 04-27 16:05 → MEDS 04-27 16:06
PROVIDERS: Emergency Medicine; Family Medicine; ADMIT Internal Medicine
DX: J96.01 Acute respiratory failure with hypoxia (principal); E87.1 Hypo-osmolality and hyponatremia; I47.20 Ventricular tachycardia, unspecified; R77.8 Other specified abnormalities of plasma proteins; F17.210 Nicotine dependence, cigarettes, uncomplicated; I73.9 Peripheral vascular disease, unspecified; J96.02 Acute respiratory failure with hypercapnia; J43.9 Emphysema, unspecified; M54.9 Dorsalgia, unspecified; G89.29 Other chronic pain; F32.A Depression, unspecified; G62.9 Polyneuropathy, unspecified; F10.10 Alcohol abuse, uncomplicated; R73.9 Hyperglycemia, unspecified; K21.9 Gastro-esophageal reflux disease without esophagitis; Z89.431 Acquired absence of right foot; Z71.6 Tobacco abuse counseling; Z79.899 Other long term (current) drug therapy; Z79.52 Long term (current) use of systemic steroids; Z89.432 Acquired absence of left foot; Z95.828 Presence of other vascular implants and grafts; Z79.2 Long term (current) use of antibiotics; Z89.422 Acquired absence of other left toe(s); I25.2 Old myocardial infarction; Z89.421 Acquired absence of other right toe(s); Z98.890 Other specified postprocedural states
CPT/HCPCS: 36415; 71260; 80053; 80069; 82803; 83735; 83880; 84484; 85025; 85379; 93005; 93010; 93306; 94640; 94664; 94760; 94761; 96365-59; 99285-25; A9270; J0456; J1650; J2930; J7050; Q9967

== ENCOUNTER → 2022-04-24 | Outpatient (CLI) | payer OTHER ==
[2022-04-24 12:59] LABS: BASOPHILS ABSOLUTE AUTO 0.04 K/mm3 (0.00-0.23); BASOPHILS PERCENT AUTO 0 % (0-2); EOSINOPHILS ABSOLUTE AUTO 0.27 K/mm3 (0.00-0.68); EOSINOPHILS PERCENT AUTO 3 % (0-6); Hematocrit 47.8 % (37.0-53.0); Hemoglobin 14.9 g/dL (13.5-17.5); IMMATURE GRAN ABSOLUTE AUTO 0.04 K/mm3 (0.00-0.10); IMMATURE GRAN PERCENT AUTO 0 % (0-1); LYMPHOCYTES ABSOLUTE AUTO 1.55 K/mm3 (0.84-5.20); LYMPHOCYTES PERCENT AUTO 16 % (21-46); MONOCYTES ABSOLUTE AUTO 0.78 K/mm3 (0.16-1.47); MONOCYTES PERCENT AUTO 8 % (4-13); Mean Corpuscular HGB 24.5 pg (26.0-34.0); Mean Corpuscular HGB Conc 31.2 g/dL (31.5-36.5); Mean Corpuscular Volume 79 fL (80-100); Mean Platelet Volume 9.3 fL (9.1-12.4); NEUTROPHILS ABSOLUTE AUTO 7.26 K/mm3 (1.96-9.15); NEUTROPHILS PERCENT AUTO 73 % (41-73); Platelet Count 284 K/mm3 (150-400); RDW Standard Deviation 56.7 fL (35.1-46.3); Red Blood Cell Count 6.07 M/mm3 (4.30-5.90); White Blood Cell Count 9.94 K/mm3 (4.00-11.30)
[2022-04-24 13:17] LABS: Albumin, Blood 3.7 g/dL (3.4-5.0); Albumin/Globulin Ratio 0.8 (0.8-1.8); Bilirubin, Total 0.6 mg/dL (0.1-1.0); Bun/Creatinine Ratio 11.8 (12.0-20.0); Calcium, Blood 9.9 mg/dL (8.5-10.1); Creatinine, Blood 1.19 mg/dL (0.60-1.20); Globulin, Blood 4.6 g/dL (2.2-4.0); Potassium, Blood 4.7 mmol/L (3.5-5.5); Total Protein, Blood 8.3 g/dL (6.4-8.2)
== END | disposition home or self-care (01) ==
LOC: LAB 12:55 → LAB SHORT 12:55
PROVIDERS: Physician Assistant
DX: R07.9 Chest pain, unspecified (principal)
CPT/HCPCS: 80053; 84484; 85025

== ENCOUNTER 2022-06-14 14:23 | Emergency (ER) | payer MEDICARE, OTHER ==
[~2022-06-14] VITALS: Ht 172.7 cm; Wt 77.1 kg
[2022-06-14 14:27] VITALS: BP 128/62
[2022-06-14] MEDS ORDERED: Bactrim Ds Tab1 EACH PO (16:40)
[2022-06-14] MEDS ORDERED: CEPH500 PO (16:40)
== END 2022-06-14 17:14 | disposition home or self-care (01) ==
LOC: ER 14:23
DX: L03.314 Cellulitis of groin (principal); L02.214 Cutaneous abscess of groin; F17.210 Nicotine dependence, cigarettes, uncomplicated; Z79.52 Long term (current) use of systemic steroids
CPT/HCPCS: A9270; J1885

== ENCOUNTER 2023-06-17 18:22 | Emergency (ER) | payer OTHER ==
[~2023-06-17] VITALS: Ht 172.7 cm; Wt 81.7 kg
== END 2023-06-17 22:57 | disposition home or self-care (01) ==
LOC: ER 18:22 → EDBD 18:22 → ER 22:57
DX: F10.129 Alcohol abuse with intoxication, unspecified (principal); E87.1 Hypo-osmolality and hyponatremia; Y90.8 Blood alcohol level of 240 mg/100 ml or more